=== PATIENT | female | born 1945 | race Two or more races ===

== ENCOUNTER → 2017-04-13 | Outpatient (CLI) | payer OTHER ==
--- NOTE | 2017-04-13 09:10 | RAD ---
Indication: Abdominal pain. The pancreas was poorly visualized. Aorta and IVC are poorly visualized. Liver is normal in size. No liver mass is detected. The gallbladder contains multiple stones. No wall thickening or pericholecystic fluid is seen. No biliary ductal dilatation is identified. The spleen is normal in size. The right and left kidneys are unremarkable. There is no ascites. Impression: Cholelithiasis without evidence of acute cholecystitis.
== END | disposition home or self-care (01) ==
LOC: US 07:50
PROVIDERS: ATTEND Family Medicine
DX: K80.80 Other cholelithiasis without obstruction (principal)
CPT/HCPCS: 76700

== ENCOUNTER 2017-05-04 08:10 | Day surgery (SDC) | payer OTHER ==
[~2017-05-04 08:10] MED LIST: HYDROmorphone 2 MG/ML VIAL IV; IOHEXOL 300 MG/ML 100ML VIAL.; LIDOCAINE 1% PF 2 ML VIAL. ID; MORPHINE SULFATE 2 MG/ML DISP.SYRIN. IV; ONDANSETRON PF 4 MG/2 ML VIAL. IV; PROCHLORPERAZINE 10 MG/2 ML VIAL. IV; SURGICEL HEMOSTAT 4X8 EACH.; fentaNYL PF VIAL 100 MCG/2 ML VIAL IV
[2017-05-04] MEDS: IV RINGERS,LACTATED 1000ML 1,000 ML IV (09:04)
[2017-05-04] MEDS ORDERED: ROCURONIUM 50 MG/5 ML VIAL. (09:08)
[2017-05-04] MEDS ORDERED: fentaNYL PF VIAL 100 MCG/2 ML VIAL (09:35)
[2017-05-04] MEDS ORDERED: PROPOFOL 20 ML IV (09:36)
[2017-05-04] MEDS ORDERED: ONDANSETRON PF 4 MG/2 ML VIAL. (09:36)
[2017-05-04] MEDS ORDERED: DEXAMETHASONE SOD PHOS 20 MG/5 ML VIAL. (09:36)
[2017-05-04] MEDS ORDERED: LIDOCAINE 2% PF Vial for OR 5 ML VIAL. (09:36)
[2017-05-04] MEDS ORDERED: MIDAZOLAM HCL/PF 2 MG/2 ML VIAL. (09:38)
[2017-05-04] MEDS: BUPIVACAINE MPF 0.5% 30 ML VIAL. (10:09)
[2017-05-04] MEDS ORDERED: ePHEDrine PF IN SALINE 50 MG/5 ML DISP.SYRIN IV (10:09)
[2017-05-04] MEDS ORDERED: NEOSTIGMINE METHYLSULFATE 5 MG/5 ML SYRINGE. (10:12)
[2017-05-04] MEDS ORDERED: GLYCOPYRROLATE 1 MG/5 ML VIAL. (10:13)
[2017-05-04] MEDS ORDERED: PHENYLEPHRINE in 0.9% NACL PF 1 MG/10 ML SYRINGE. IV (10:34)
[2017-05-04] MEDS: HYDROcodone/APAP 5/325MG 1 TAB TABLET PO (11:45)
[2017-05-04] MEDS: fentaNYL PF VIAL 100 MCG/2 ML VIAL IV (12:29)
== END 2017-05-04 13:08 | disposition home or self-care (01) ==
LOC: SURG 08:10
DX: K80.12 Calculus of gallbladder with acute and chronic cholecystitis without obstruction (principal)
CPT/HCPCS: 47562; J1100; J2250; J2370; J2405; J2704; J2710; J3010; J3490; J7030; Q9967

== ENCOUNTER → 2017-09-26 | Outpatient (CLI) | payer OTHER | END | disposition home or self-care (01) | LOC: MAMMO 09:52 | DX: Z12.31 Encounter for screening mammogram for malignant neoplasm of breast (principal) | CPT/HCPCS: 77067 ==

== ENCOUNTER → 2018-09-27 | Outpatient (CLI) | payer OTHER, MEDICAID ==
[2017-05-04 11:51] VITALS: BP 130/71
[~2018-09-27] MED LIST changes: +BESI5DRO OD; +CLON1TAB11 PO; +HYDR-3164 PO; -HYDROmorphone 2 MG/ML VIAL IV; +IBUP200T58 PO; -IOHEXOL 300 MG/ML 100ML VIAL.; -LIDOCAINE 1% PF 2 ML VIAL. ID; -MORPHINE SULFATE 2 MG/ML DISP.SYRIN. IV; +NEPA1.7D OP; -ONDANSETRON PF 4 MG/2 ML VIAL. IV; +POLY17PO29 PO; -PROCHLORPERAZINE 10 MG/2 ML VIAL. IV; -SURGICEL HEMOSTAT 4X8 EACH.; -fentaNYL PF VIAL 100 MCG/2 ML VIAL IV
--- NOTE | 2018-09-27 12:01 | RAD ---
DATE: 09/27/2018. EXAM: DIGITAL SCREEN BILAT W/CAD. HISTORY: Routine mammographic screening. COMPARISON: 09/26/2017. This study was interpreted with the benefit of Computerized Aided Detection (CAD). FINDINGS: Breast Density: SCATTERED The breast parenchyma shows scattered fibroglandular densities. Breast parenchyma level B.. There are no suspicious masses, microcalcifications or architectural distortion. Diffuse secretory, coarse and vascular calcifications are benign. BI-RADS CATEGORY: 2 BENIGN FINDING(S). RECOMMENDED FOLLOW-UP: 12M 12 MONTH FOLLOW-UP. PQRS compliance statement: Patient information was entered into a reminder system with a target due date 09/28/2019 for the next mammogram. Mammography is a sensitive method for finding small breast cancers, but it does not detect them all and is not a substitute for careful clinical examination. A negative mammogram does not negate a clinically suspicious finding and should not result in delay in biopsying a clinically suspicious abnormality. "Our facility is accredited by the [employer] Mammography Program."
== END | disposition home or self-care (01) ==
LOC: MAMMO 08:06
PROVIDERS: ATTEND Family Medicine
DX: Z12.31 Encounter for screening mammogram for malignant neoplasm of breast (principal); N64.89 Other specified disorders of breast
CPT/HCPCS: 77067

== ENCOUNTER → 2019-03-18 | Outpatient (CLI) | payer OTHER ==
[2017-05-04 11:51] VITALS: BP 130/71
[~2019-03-18] MED LIST changes: -CLON1TAB11 PO; +CLONAZEPAM1 MG PO; +REGADENOSON 0.4 MG/5 ML DISP.SYRIN. IV ONE
--- NOTE | 2019-03-18 11:14 | CARD ---
MR#: [id number] Date of Study: 03/18/2019 Ordering Physician: AIYANA BOYER, Referring Physician: AIYANA BOYER Tech: Carmen Reese RDCS APPROVED REPORT EXAM: Two-dimensional and M-mode echocardiogram with Doppler and color Doppler. Other Information Quality : Good INDICATION Exertional Dyspnea 2D DIMENSIONS RVDd1.8 (2.9-3.5cm)Left Atrium(2D)1.6 (1.6-4.0cm) IVSd0.8 (0.7-1.1cm)Aortic Root(2D)2.9 (2.0-3.7cm) LVDd2.9 (3.9-5.9cm)LVOT Diameter1.8 (1.8-2.4cm) PWd0.6 (0.7-1.1cm)LVDs2.0 (2.5-4.0cm) FS (%) 30.5 %SV19.3 ml LVEF(%)60.0 (>50%) Aortic Valve AoV Peak Ramses.125.9cm/sAoV VTI18.4cm AO Peak GR.6.3mmHgLVOT VTI 19.37cm AO Mean GR.3mmHgAVA (VTI)2.80cm2 AI P 1/2 Dorl985fo Mitral Valve MV E Tqbwcdsa61.5cm/sMV DECEL REAX094jo MV A Wqfkgapk01.6cm/sE/A Ratio0.9 TDI Lateral E' P. V3.99cm/sMedial E' P. V4.38cm/s E/Lateral E'18.2E/Medial E'16.6 Pulmonary Vein S1 Isizvlqa55.5cm/sS2 Wwbyafas09.49cm/s D2 Fzoaiayy22.5cm/s LEFT VENTRICLE The left ventricle is normal size. There is normal left ventricular wall thickness. The left ventricu lar systolic function is normal. The Ejection Fraction is 60-65%. There is normal LV segmental wall m otion. Transmitral Doppler flow pattern is Grade I-abnormal relaxation pattern. RIGHT VENTRICLE The right ventricle is normal size. The right ventricular systolic function is normal. ATRIA The left atrium size is normal. The right atrium size is normal. The interatrial septum is intact wit h no evidence for an atrial septal defect or patent foramen ovale as noted on 2-D or Doppler imaging. AORTIC VALVE The aortic valve is calcified but opens well. Doppler and Color Flow revealed mild aortic regurgitati on. There is no significant aortic valvular stenosis. MITRAL VALVE The mitral valve is calcified but opens well. There is no evidence of mitral valve prolapse. There is no mitral valve stenosis. Doppler and Color Flow revealed no mitral valve regurgitation noted. TRICUSPID VALVE The tricuspid valve is normal in structure and function. Doppler and Color Flow revealed trace tricus pid valve regurgitation. There is no tricuspid valve stenosis. PULMONIC VALVE The pulmonary valve is normal in structure and function. Doppler and Color Flow revealed trace pulmon ic valvular regurgitation. There is no pulmonic valvular stenosis. GREAT VESSELS The aortic root is normal in size. The ascending aorta is normal in size. The IVC is normal in size a nd collapses >50% with inspiration. PERICARDIAL EFFUSION There is no evidence of significant pericardial effusion. Critical Notification Critical Value: No <Conclusion> The left ventricular systolic function is normal. The Ejection Fraction is 60-65%. There is normal LV segmental wall motion. Transmitral Doppler flow pattern is Grade I-abnormal relaxation pattern. Mild aortic regurgitation. Trace tricuspid valve regurgitation. There is no evidence of significant pericardial effusion. Signed by : Aiyana Boyer, Electronically Approved : 03/18/2019 11:14:11
--- NOTE | 2019-03-18 14:23 | RAD ---
MR#: [id number] Date of Study: 03/18/2019 Ordering Physician: AIYANA BOYER Referring Physician: NEREIDA ZIEGLER Tech: RT Lindsey Johnson) (N) APPROVED REPORT Test Type: Pharmacological Stress Nurse/Tech: Gwendolyn Menendez R.N. Test Indications: SOB Cardiac History: No known cardiac Medications: Zocor Medical History: See Electronic Medical Record Resting ECG: SR w/ inverted T waves in leads AVR,V1,v3 Resting Heart Rate: 83 bpm Resting Blood Pressure: 144/79mmHg Pretest Chest Pain: No chest pain Nurse/Tech Notes S1S2, lungs CTA Consent: The procedure was explained to the patient in lay terms. Informed consent was witnessed. Yovanny eout was entered into [employer]. History and Stress Test performed by RT Lindsey Johnson) (N) Pharm. Details Pharmacologic stress testing was performed using 0.4mg per 5ml of regadenoson given intravenously ove r 7-10 seconds. Stress Symptoms SOA, h/a POST EXERCISE Reason for Termination: Infusion complete Max HR: 109 bpm Max Blood Pressure: 137/68mmHg Blood Pressure response to exercise: Normal blood pressure response during stress. Heart Rate response to exercise: wnl Chest Pain: No. Arrhythmia: No. ST Change: No. INTERPRETATION Stress EKG Conclusion: Baseline EKG showed sinus rhythm. No ischemic changes at peak stress. No arr hythmias. Imaging Protocol IMAGE PROTOCOL: Rest Tc-99m/stress Tc-99m 1 day Rest: Stress: Viability: Radiopharm.Tc99m TdycbvijdWf73g Sestamibi Dose10.4mCi 33mCi Duration 13min. 13min. Img Date 03/18/2019 03/18/2019 Inj-Img [id number]. 60min. Rest Admin Site:IV - Right AntecubitalAdministrator:RT Lindsey Johnson)(N) Stress Admin Site: IV - Right AntecubitalAdministrator: VIVIAN Greer STRESS DATA End Diast. Vol.15.0mlAv. Heart Neug356.0bpm LVEDV index BSA11.0mlCardiac Output0.0L/min CO Index BSA0.0L/minMyocardial Mass42.0g Eject. Bctqbavh204.0% Stress Scores Regional WT0.00Summed WT3.00 Regional WM0.00Summed WM3.00 Study quality was good. Left Ventricular size was Normal at Rest and Stress. Lung uptake was . Left Ventricular ejection fraction is >80%. The rest and stress images show normal perfusion, normal contraction and thickening. LV Perf. Quant 17 Seg. SSS0.00 17 Seg. SRS0.00 17 Seg. SDS0.00 Stress Defect Extent (% LAD)0.00Rest Defect Extent (% LAD)0.00Rev. Defect Extent (% LAD)0.00 Stress Defect Extent (% LCX) 0.00Rest Defect Extent (% LCX)0.00Rev. Defect Extent (% LCX)0.00 Stress Defect Extent (% RCA)0.00Rest Defect Extent (% RCA)0.00Rev. Defect Extent (% RCA)0.00 Stress Defect Extent (% NICOLETTE)0.00Rest Defect Extent (% NICOLETTE)0.00Rev. Defect Extent (% NICOLETTE)0.00 Conclusion 1. Regadenoson cardioisotope stress test did not show any evidence of ischemia or infarct. 2. Normal left ventricular systolic function with ejection fraction calculated at >80%. 3. Low risk for cardiac events. Signed by : Aiyana Boyer, Electronically Approved : 03/18/2019 14:22:38
== END | disposition home or self-care (01) ==
LOC: ECHO 08:52
PROVIDERS: ATTEND Internal Medicine Cardiovascular Disease
DX: I08.0 Rheumatic disorders of both mitral and aortic valves (principal)
CPT/HCPCS: 78452; 93017; 93306; A9500; J2785

== ENCOUNTER 2020-03-01 12:03 | Inpatient (IN) | payer OTHER ==
[~2020-03-01] VITALS: Ht 142.2 cm; Wt 54.0 kg
[~2020-03-01 12:03] MED LIST changes: -REGADENOSON 0.4 MG/5 ML DISP.SYRIN. IV ONE
[2020-03-01] MEDS ORDERED: FAMOTIDINE 20 MG/2 ML VIAL IVP ONE (12:30)
[2020-03-01] MEDS ORDERED: IV NORMAL SALINE 1000ML BAG 1,000 ML IV ONE ×3 (12:30→15:45)
[2020-03-01 12:44] LABS: FECAL OB PT POSITIVE (NEG)
[2020-03-01 12:51] LABS: BASO % 0 % (0-3); EOS % 0 % (0-3); HEMATOCRIT 33.6 % (36.0-47.0); HEMOGLOBIN 11.6 g/dL (12.0-15.5); LYMPH # 1.1 x10^3/uL (1.0-4.8); LYMPH % 11 % (24-48); MEAN CORPUSCULAR HEMOGLOBIN 33 pg (25-35); MEAN CORPUSCULAR HGB CONC 34 g/dL (31-37); MEAN CORPUSCULAR VOLUME 95 fL (79-100); MONO # 0.6 x10^3/uL (0.0-1.1); MONO % 6 % (0-9); NEUT # 8.2 x10^3/uL (1.8-7.7); NEUT % 82 % (31-73); PLATELET COUNT 235 x10^3/uL (140-400); RED BLOOD COUNT 3.55 x10^6/uL (3.50-5.40); RED CELL DISTRIBUTION WIDTH 11.8 % (11.5-14.5)
[2020-03-01 12:58] LABS: CREATININE 0.5 mg/dL (0.6-1.0); GFR 120.3; POTASSIUM 3.8 mmol/L (3.5-5.1)
[2020-03-01] MEDS ORDERED: IOHEXOL 300 MG/ML 100ML VIAL. IV ONE (13:00)
[2020-03-01 13:01] LABS: PROTHROMBIN TIME PATIENT 12.9 SEC (11.7-14.0)
[2020-03-01 13:04] LABS: ALBUMIN 3.5 g/dL (3.4-5.0); ALBUMIN/GLOBULIN RATIO 1.2 (1.0-1.7); MAGNESIUM 1.5 mg/dL (1.8-2.4); TOTAL BILIRUBIN 0.4 mg/dL (0.2-1.0); TOTAL PROTEIN 6.5 g/dL (6.4-8.2)
[2020-03-01] MEDS ORDERED: CONTRAST GIVEN. MC PRN (13:15)
--- NOTE | 2020-03-01 13:41 | RAD ---
PQRS Compliance Statement: One or more of the following individualized dose reduction techniques were utilized for this examination: 1. Automated exposure control 2. Adjustment of the mA and/or kV according to patient size 3. Use of iterative reconstruction technique CT ABD PELV W/ IV CONTRST ONLY Clinical Indication: Reason: rectal bleeding Comparison: None. Technique: Helical CT imaging of the abdomen and pelvis is performed after 75 cc of Omnipaque 300 IV contrast. Oral contrast not administered. Findings: Incompletely imaged there is a large hiatal hernia containing most of the stomach, transverse colon, and the pancreas. Cardiac size is normal. Coronary artery disease is seen. There is compressive atelectasis in the lung bases adjacent to the hiatal hernia. Common bile duct is mildly dilated but tapers distally and is probably normal for this patient. Cholecystectomy. The liver, spleen, and adrenal glands are normal. Mild atherosclerotic calcification of the abdominal aorta, no aneurysm. Kidneys enhance symmetrically, no hydronephrosis. There is no dilated small bowel. Much of the small bowel is air-filled. Appendix is not seen, no secondary signs of appendicitis. There is descending colon diverticulosis. No colon wall thickening is appreciated. No abdominal adenopathy or free fluid. Atrophic uterus. Vaginal pessary is noted. The urinary bladder is normal. There are moderate bilateral fat-containing inguinal hernias. Multilevel disc space narrowing and vacuum disc phenomenon of the thoracolumbar spine. No acute fracture is seen. IMPRESSION: 1. No acute abdominal or pelvic abnormality. 2. Descending colon diverticulosis. 3. Large hiatal hernia contains stomach, transverse colon, and pancreas. Electronically signed by: Lucas Soriano MD (03/01/2020 1:38 PM) [id number]
[2020-03-01 13:49] LABS: BILIRUBIN,URINE NEGATIVE (NEG); CLARITY,URINE CLEAR; COLOR,URINE YELLOW; NITRITE,URINE NEGATIVE (NEG); PROTEIN,URINE NEGATIVE (NEG-TRACE); UROBILINOGEN,URINE 0.2 mg/dL (0.2 mg/dL)
[2020-03-01 13:55] LABS: BACTERIA,URINE MANY /HPF (0-FEW); BARBITURATES NEG (NEG); BENZODIAZEPINES NEG (NEG); CANNABINOIDS NEG (NEG); COCAINE NEG (NEG); METHADONE NEG (NEG); OPIATES NEG (NEG); PHENCYCLIDINE NEG (NEG); WBC,URINE 20-40 /HPF (0-4)
[2020-03-01 13:58] LABS: AMPHETAMINE/METHAMPHETAMINE NEG (NEG)
--- NOTE | 2020-03-01 14:30 | PDOC1 ---
History and Physical Date of Admission Date of Admission DATE: 03/01/20 TIME: 14:29 Identification/Chief Complaint Chief Complaint 74 year old Tajik-speaking female patient with a history of acid reflux, anxiety, presenting to the ED today complaining of rectal bleeding that began this morning at 2 AM. reports taking Aleve due to generalized abdominal pain that she was experiencing at that time. Denies any nausea or vomiting today but states yesterday when she was having the rectal bleeding she felt nauseated . Denies any fever. hgb 11.6 in ER, HOWEVER Na is low at 121 Interpretation was provided by granddaughter Past Medical History Cardiovascular: HTN, Hyperlipidemia Musculoskeletal: Osteoarthritis Family History Family History: Hypertension Social History Smoke: No ALCOHOL: none Drugs: None Current Medications Current Medications Current Medications Famotidine (Pepcid Vial) 20 mg 1X ONCE IVP Last administered on 03/01/20at 12:40; Start 03/01/20 at 12:30; Stop 03/01/20 at 12:31; Status DC Sodium Chloride 1,000 ml @ 1,000 mls/hr 1X ONCE IV Last administered on 03/01/20at 12:41; Start 03/01/20 at 12:30; Stop 03/01/20 at 13:29; Status DC Iohexol (Omnipaque 300 Mg/ml) 75 ml 1X ONCE IV ; Start 03/01/20 at 13:00; Stop 03/01/20 at 13:04; Status DC Info (CONTRAST GIVEN -- Rx MONITORING) 1 each PRN DAILY PRN MC SEE COMMENTS; Start 03/01/20 at 13:15; Stop 03/03/20 at 13:14 Sodium Chloride 1,000 ml @ 1,000 mls/hr 1X ONCE IV Last administered on 03/01/20at 14:28; Start 03/01/20 at 14:00; Stop 03/01/20 at 14:59 Lorazepam (Ativan Inj) 0.5 mg 1X ONCE IVP Last administered on 03/01/20at 14:27; Start 03/01/20 at 14:30; Stop 03/01/20 at 14:31 Active Scripts Active Reported [place] 5-325 Tablet (Acetaminophen/Hydrocodone Bitart) 1 Each Tablet 1-2 Tab PO Q4HRS PRN Besivance (Besifloxacin Hcl) 5 Ml Drops.susp 1 Drop OD TID Ilevro (Nepafenac) 1.7 Ml Drops.susp 1.7 Ml OP RIGHT EYE Advil (Ibuprofen) 200 Mg Tablet 200 Mg PO PRN PRN Miralax (Polyethylene Glycol 3350) 17 Gm Powd.pack 1 Pkt PO DAILY Clonazepam 1 Mg Tablet 1 Mg PO DAILY Allergies Allergies: Coded Allergies: No Known Drug Allergies (Unverified , 05/04/17) ROS Review of System Review of Systems: Review of Systems: Constitutional: Denies fever or chills. [] Eyes: Denies change in visual acuity. [] HENT: Denies nasal congestion or sore throat. [] Respiratory: Denies cough or shortness of breath. [] Cardiovascular: Denies chest pain or edema. [] GI: Reports rectal bleeding, nausea, abdominal pain, denies vomiting : Denies dysuria. [] Musculoskeletal: Denies back pain or joint pain. [] Integument: Denies rash. [] Neurologic: Denies headache, focal weakness or sensory changes. [] Psychiatric: reports anxiety. [] 14 PT ROS OTHERWISE NEG HEENT: No: Heacaches, Visual Changes, Hearing change, Nasal congestion, Nasal discharge, Oral lesions, Sinus pain, Sore Throat, Epistaxis, Sneezing, Snoring, Tinnitus, Vertigo, Vocal changes, Other Hematological and Lymphatic: No: Bleeding Problems, Blood Clots, Blood Transfusions, Brusing, Night Sweats, Pallor, Swollen Lymph Nodes, Other Respiratory: No: Cough, Hemoptysis, Orthopnea, Pleuritic Pain, Shortness of breath, SOB with excertion, Sputum Changes, Stridor, Tachypnea, Wheezing, Other Skin: No Dry Skin, No Eczema, No Hair Changes, No Lumps, No Mole Changes, No Mottling, No Nail Changes, No Pruritus, No Rash, No Skin Lesion Changes, No Other, No Acne Physical Exam Physical Exam Constitutional: Well developed, well nourished, no acute distress, non-toxic appearance. [] HENT: Normocephalic, atraumatic, bilateral external ears normal, oropharynx moist, no oral exudates, nose normal. [] Eyes: PERRLA, EOMI, conjunctiva normal, no discharge. [] Neck: Normal range of motion, no tenderness, supple, no stridor. [] Cardiovascular:Heart rate regular rhythm, no murmur [] Lungs & Thorax: Bilateral breath sounds clear to auscultation [] Abdomen: Rounded abdomen, bowel sounds normal, soft, generalized tenderness, no masses, no pulsatile masses. [] Rectal external rectal area with Small amount of nonthrombosed hemorrhoids BY er Internal rectum with no hemorrhoids or masses, positive Hemoccult Skin: Warm, dry, no erythema, no rash. [] Back: No tenderness, no CVA tenderness. [] Extremities: No tenderness, no cyanosis, no clubbing, ROM intact, no edema. [] Neurologic: Alert and oriented X 3, normal motor function, normal sensory function, no focal deficits noted. [] Psychologic: Anxious appearing General: Alert, Oriented X3, Cooperative, No acute distress HEENT: Atraumatic, PERRLA, EOMI, Mucous membr. moist/pink Lungs: Clear to auscultation Heart: RRR, no thrills Breasts: Not examined Abdomen: Normal bowel sounds, Soft Rectal Exam: not examined, deferred, hemorrhoids PELVIC: Examination not indicated Extremities: No cyanosis Skin: No breakdown Neuro: Normal speech, Cranial nerves 3-12 NL Psych/Mental Status: Mental status NL, Mood NL Vitals Vitals Vital Signs Date Time Temp Pulse Resp B/P (MAP) Pulse Ox O2 Delivery O2 Flow Rate FiO2 03/01/20 12:46 98.2 87 16 153/74 (100) 96 Room Air 98.2 Labs Labs Laboratory Tests Test 03/01/20 12:11 03/01/20 12:15 03/01/20 12:35 Urine Collection Type Unknown Urine Color Yellow Urine Clarity Clear Urine pH 6.0 (<5.0-8.0) Urine Specific [place] 1.020 (1.000-1.030) Urine Protein Negative mg/dL (NEG-TRACE) Urine Glucose (UA) 250 mg/dL (NEG) Urine Ketones (Stick) Trace mg/dL (NEG) Urine Blood Trace (NEG) Urine Nitrite Negative (NEG) Urine Bilirubin Negative (NEG) Urine Urobilinogen Dipstick 0.2 mg/dL (0.2 mg/dL) Urine Leukocyte Esterase Large (NEG) Urine RBC 1-2 /HPF (0-2) Urine WBC 20-40 /HPF (0-4) Urine Squamous Epithelial Cells Mod /LPF Urine Bacteria Many /HPF (0-FEW) Urine Opiates Screen Neg (NEG) Urine Methadone Screen Neg (NEG) Urine Barbiturates Neg (NEG) Urine Phencyclidine Screen Neg (NEG) Urine Amphetamine/Methamphetamine Neg (NEG) Urine Benzodiazepines Screen Neg (NEG) Urine Cocaine Screen Neg (NEG) Urine Cannabinoids Screen Neg (NEG) Urine Ethyl Alcohol Neg (NEG) Stool Occult Blood Positive (NEG) White Blood Count 10.0 x10^3/uL (4.0-11.0) Red Blood Count 3.55 x10^6/uL (3.50-5.40) Hemoglobin 11.6 g/dL (12.0-15.5) Hematocrit 33.6 % (36.0-47.0) Mean Corpuscular Volume 95 fL (79-100) Mean Corpuscular Hemoglobin 33 pg (25-35) Mean Corpuscular Hemoglobin Concent 34 g/dL (31-37) Red Cell Distribution Width 11.8 % (11.5-14.5) Platelet Count 235 x10^3/uL (140-400) Neutrophils (%) (Auto) 82 % (31-73) Lymphocytes (%) (Auto) 11 % (24-48) Monocytes (%) (Auto) 6 % (0-9) Eosinophils (%) (Auto) 0 % (0-3) Basophils (%) (Auto) 0 % (0-3) Neutrophils # (Auto) 8.2 x10^3/uL (1.8-7.7) Lymphocytes # (Auto) 1.1 x10^3/uL (1.0-4.8) Monocytes # (Auto) 0.6 x10^3/uL (0.0-1.1) Eosinophils # (Auto) 0.0 x10^3/uL (0.0-0.7) Basophils # (Auto) 0.0 x10^3/uL (0.0-0.2) Prothrombin Time 12.9 SEC (11.7-14.0) Prothromb Time International Ratio 1.0 (0.8-1.1) Activated Partial Thromboplast Time 27 SEC (24-38) Sodium Level 121 mmol/L (136-145) Potassium Level 3.8 mmol/L (3.5-5.1) Chloride Level 88 mmol/L (98-107) Carbon Dioxide Level 26 mmol/L (21-32) Anion Gap 7 (6-14) Blood Urea Nitrogen 25 mg/dL (7-20) Creatinine 0.5 mg/dL (0.6-1.0) Estimated GFR (Cockcroft-Gault) 120.3 BUN/Creatinine Ratio 50 (6-20) Glucose Level 144 mg/dL (70-99) Calcium Level 8.0 mg/dL (8.5-10.1) Magnesium Level 1.5 mg/dL (1.8-2.4) Total Bilirubin 0.4 mg/dL (0.2-1.0) Aspartate Amino Transf (AST/SGOT) 16 U/L (15-37) Alanine Aminotransferase (ALT/SGPT) 17 U/L (14-59) Alkaline Phosphatase 37 U/L (46-116) Total Protein 6.5 g/dL (6.4-8.2) Albumin 3.5 g/dL (3.4-5.0) Albumin/Globulin Ratio 1.2 (1.0-1.7) Lipase 85 U/L (73-393) Ethyl Alcohol Level < 10 mg/dL (0-10) Laboratory Tests Test 03/01/20 12:11 03/01/20 12:15 03/01/20 12:35 Urine Collection Type Unknown Urine Color Yellow Urine Clarity Clear Urine pH 6.0 (<5.0-8.0) Urine Specific [place] 1.020 (1.000-1.030) Urine Protein Negative mg/dL (NEG-TRACE) Urine Glucose (UA) 250 mg/dL (NEG) Urine Ketones (Stick) Trace mg/dL (NEG) Urine Blood Trace (NEG) Urine Nitrite Negative (NEG) Urine Bilirubin Negative (NEG) Urine Urobilinogen Dipstick 0.2 mg/dL (0.2 mg/dL) Urine Leukocyte Esterase Large (NEG) Urine RBC 1-2 /HPF (0-2) Urine WBC 20-40 /HPF (0-4) Urine Squamous Epithelial Cells Mod /LPF Urine Bacteria Many /HPF (0-FEW) Urine Opiates Screen Neg (NEG) Urine Methadone Screen Neg (NEG) Urine Barbiturates Neg (NEG) Urine Phencyclidine Screen Neg (NEG) Urine Amphetamine/Methamphetamine Neg (NEG) Urine Benzodiazepines Screen Neg (NEG) Urine Cocaine Screen Neg (NEG) Urine Cannabinoids Screen Neg (NEG) Urine Ethyl Alcohol Neg (NEG) Stool Occult Blood Positive (NEG) White Blood Count 10.0 x10^3/uL (4.0-11.0) Red Blood Count 3.55 x10^6/uL (3.50-5.40) Hemoglobin 11.6 g/dL (12.0-15.5) Hematocrit 33.6 % (36.0-47.0) Mean Corpuscular Volume 95 fL (79-100) Mean Corpuscular Hemoglobin 33 pg (25-35) Mean Corpuscular Hemoglobin Concent 34 g/dL (31-37) Red Cell Distribution Width 11.8 % (11.5-14.5) Platelet Count 235 x10^3/uL (140-400) Neutrophils (%) (Auto) 82 % (31-73) Lymphocytes (%) (Auto) 11 % (24-48) Monocytes (%) (Auto) 6 % (0-9) Eosinophils (%) (Auto) 0 % (0-3) Basophils (%) (Auto) 0 % (0-3) Neutrophils # (Auto) 8.2 x10^3/uL (1.8-7.7) Lymphocytes # (Auto) 1.1 x10^3/uL (1.0-4.8) Monocytes # (Auto) 0.6 x10^3/uL (0.0-1.1) Eosinophils # (Auto) 0.0 x10^3/uL (0.0-0.7) Basophils # (Auto) 0.0 x10^3/uL (0.0-0.2) Prothrombin Time 12.9 SEC (11.7-14.0) Prothromb Time International Ratio 1.0 (0.8-1.1) Activated Partial Thromboplast Time 27 SEC (24-38) Sodium Level 121 mmol/L (136-145) Potassium Level 3.8 mmol/L (3.5-5.1) Chloride Level 88 mmol/L (98-107) Carbon Dioxide Level 26 mmol/L (21-32) Anion Gap 7 (6-14) Blood Urea Nitrogen 25 mg/dL (7-20) Creatinine 0.5 mg/dL (0.6-1.0) Estimated GFR (Cockcroft-Gault) 120.3 BUN/Creatinine Ratio 50 (6-20) Glucose Level 144 mg/dL (70-99) Calcium Level 8.0 mg/dL (8.5-10.1) Magnesium Level 1.5 mg/dL (1.8-2.4) Total Bilirubin 0.4 mg/dL (0.2-1.0) Aspartate Amino Transf (AST/SGOT) 16 U/L (15-37) Alanine Aminotransferase (ALT/SGPT) 17 U/L (14-59) Alkaline Phosphatase 37 U/L (46-116) Total Protein 6.5 g/dL (6.4-8.2) Albumin 3.5 g/dL (3.4-5.0) Albumin/Globulin Ratio 1.2 (1.0-1.7) Lipase 85 U/L (73-393) Ethyl Alcohol Level < 10 mg/dL (0-10) Images Images DPOA REVIEW 19 MIN to patient portal What Is a Power of Activity Manager? A power of regulatory attorney (POA) is a legal document giving one person (the agent or [id number]) the power to act for another person (the principal). The agent can have broad legal authority or limited authority to make legal decisions about the principal's property, finances or medical care. The power of regulatory attorney is frequently used in the event of a principal's illness or disability, or when the principal can't be present to sign necessary legal documents for financial transactions. A power of regulatory attorney can end for a number of reasons, such as when the principal dies, the principal revokes it, a court invalidates it, the principal divorces their spouse, who happens to be the agent, or the agent can no longer carry out the outlined responsibilities. Conventional POAs lapse when the creator becomes incapacitated, but a durable POA remains in force to enable the agent to manage the creators affairs, and a springing POA comes into effect only if and when the creator of the POA becomes incapacitated. A medical or healthcare POA enables an agent to make medical decisions on behalf of an incapacitated person. Barrett Takeaways A power of regulatory attorney (POA) is a legal document giving one person, the agent or [id number] the power to act for another person, the principal. The agent can have broad legal authority or limited authority to make decisions about the principal's property, finances or medical care. The power of regulatory attorney is often used when a principal becomes ill or disabled, or when they can't be present to sign necessary legal documents for financial transactions. Understanding Power of Activity Manager A power of regulatory attorney should be considered when planning for long-term care. There are different types of POAs that fall under either a general power of regulatory attorney or limited power of regulatory attorney. A general power of regulatory attorney acts on behalf of the principal in any and all matters, as allowed by the state. The agent under a general POA agreement may be authorized to take care of issues such as handling bank accounts, signing checks, selling property and assets like stocks, f A limited power of regulatory attorney gives the agent the power to act on behalf of the principal in specific matters or events. For example, the limited POA may explicitly state that the agent is only allowed to manage the principal's care home accounts. A limited POA may also be limited to a specific period of time (e.g., if the principal will be out of the country for, say, two years). Most buckner of regulatory attorney documents allow an agent to represent the principal in all property and financial matters as long as the principals mental state of mind is good. If a situation occurs where the principal becomes incapable of making decisions for him or herself, the POA agreement would automatically end. However, someone who wants the POA to remain in effect after the persons health deteriorates would need to sign a durable power of regulatory attorney (DPOA). What is an advance directive? An advance directive is a legal document that says how you want to be cared for if you are unable to make decisions. You can include what medical treatments you would want and who you would trust to make decisions for you. An advance directive can also include other legal documents. A living will is a list of treatment preferences. It can be used to indicate whether you would want cardiopulmonary resuscitation (CPR), tube feedings, a breathing machine, or certain medicines, like antibiotics. The durable power of regulatory attorney for health care document identifies the person you would want to make medical decisions for you. This person is also called a proxy. Your proxy should be familiar with your values and wishes. How do I get started? You can get advance directive documents for your state from your doctor's office or from http://www.caringinfo.org. Review the forms, and ask your doctor if you have any questions. Pick a person to be your proxy, and talk it over with that person. PQRS Compliance Statement: One or more of the following individualized dose reduction techniques were utilized for this examination: 1. Automated exposure control 2. Adjustment of the mA and/or kV according to patient size 3. Use of iterative reconstruction technique CT ABD PELV W/ IV CONTRST ONLY Clinical Indication: Reason: rectal bleeding Comparison: None. Technique: Helical CT imaging of the abdomen and pelvis is performed after 75 cc of Omnipaque 300 IV contrast. Oral contrast not administered. Findings: Incompletely imaged there is a large hiatal hernia containing most of the stomach, transverse colon, and the pancreas. Cardiac size is normal. Coronary artery disease is seen. There is compressive atelectasis in the lung bases adjacent to the hiatal hernia. Common bile duct is mildly dilated but tapers distally and is probably normal for this patient. Cholecystectomy. The liver, spleen, and adrenal glands are normal. Mild atherosclerotic calcification of the abdominal aorta, no aneurysm. Kidneys enhance symmetrically, no hydronephrosis. There is no dilated small bowel. Much of the small bowel is air-filled. Appendix is not seen, no secondary signs of appendicitis. There is descending colon diverticulosis. No colon wall thickening is appreciated. No abdominal adenopathy or free fluid. Atrophic uterus. Vaginal pessary is noted. The urinary bladder is normal. There are moderate bilateral fat-containing inguinal hernias. Multilevel disc space narrowing and vacuum disc phenomenon of the thoracolumbar spine. No acute fracture is seen. IMPRESSION: 1. No acute abdominal or pelvic abnormality. 2. Descending colon diverticulosis. 3. Large hiatal hernia contains stomach, transverse colon, and pancreas. Electronically signed by: Lucas Soriano MD (03/01/2020 1:38 PM) [id number] DICTATED and SIGNED BY: LUCAS SORIANO MD VTE Prophylaxis Ordered VTE Prophylaxis Devices: Yes VTE Pharmacological Prophylaxi: Contraindicated Assessment/Plan Assessment/Plan IMPRESSION: 1. No acute abdominal or pelvic abnormality. by ct 2. Descending colon diverticulosis. 3. Large hiatal hernia contains stomach, transverse colon, and pancreas. 4, rectal bleed, ACUTE 5. moderate hyponatremia 6. uti plan admit, OBSERVATION npo iv fluids serial HGB Q 12 HRS SCD'S NO LOVENOX serum osmolality random urinary sodium frequent labs serum osmolality iv rocephin 1 gm q 24 hrs d/w er Justifications for Admission Other Justification AMA MYERS MD Mar 01, 2020 14:30
--- NOTE | 2020-03-01 15:13 | PHYS DOC ---
Past Medical History Past Medical History: Anxiety, Other Additional Past Medical Histor: ULCERS Past Surgical History: Cholecystectomy, Other Additional Past Surgical Histo: EYE SX Smoking Status: Never Smoker Alcohol Use: None General Adult EDM: Chief Complaint: BLOODY STOOL HPI: HPI: Patient is a 74 year old [place]gu[place]-speaking female patient with a history of acid reflux, anxiety, presenting to the ED today complaining of rectal bleeding that began this morning at 2 AM. She reports taking Aleve due to generalized abdominal pain that she was experiencing at that time. Denies any nausea or vomiting today but states yesterday when she was having the rectal bleeding she felt nauseated but could not vomit. Denies any fever. Interpretation was provided by granddaughter Review of Systems: Review of Systems: Constitutional: Denies fever or chills. [] Eyes: Denies change in visual acuity. [] HENT: Denies nasal congestion or sore throat. [] Respiratory: Denies cough or shortness of breath. [] Cardiovascular: Denies chest pain or edema. [] GI: Reports rectal bleeding, nausea, abdominal pain, denies vomiting : Denies dysuria. [] Musculoskeletal: Denies back pain or joint pain. [] Integument: Denies rash. [] Neurologic: Denies headache, focal weakness or sensory changes. [] Psychiatric: reports anxiety. [] Heart Score: Risk Factors: Risk Factors: DM, Current or recent (<one month) smoker, HTN, HLP, family history of CAD, obesity. Risk Scores: Score 0 - 3: 2.5% MACE over next 6 weeks - Discharge Home Score 4 - 6: 20.3% MACE over next 6 weeks - Admit for Clinical Observation Score 7 - 10: 72.7% MACE over next 6 weeks - Early Invasive Strategies Current Medications: Current Medications Medications (Trade) Dose Ordered Sig/Alo Start Time Stop Time Status Last Admin Dose Admin Famotidine (Pepcid Vial) 20 mg 1X ONCE 03/01/20 12:30 03/01/20 12:31 DC 03/01/20 12:40 20 MG Info (CONTRAST GIVEN -- Rx MONITORING) 1 each PRN DAILY PRN 03/01/20 13:15 03/03/20 13:14 Iohexol (Omnipaque 300 Mg/ml) 75 ml 1X ONCE 03/01/20 13:00 03/01/20 13:04 DC 03/01/20 13:00 75 ML Lorazepam (Ativan Inj) 0.5 mg 1X ONCE 03/01/20 14:30 03/01/20 14:31 DC 03/01/20 14:27 0.5 MG Sodium Chloride 1,000 ml @ 1,000 mls/hr 1X ONCE 03/01/20 14:00 03/01/20 14:59 DC 03/01/20 14:28 1,000 MLS/HR Allergies: Allergies: Allergies Coded Allergies Type Severity Reaction Last Updated Verified No Known Drug Allergies 05/04/17 No Physical Exam: PE: Constitutional: Well developed, well nourished, no acute distress, non-toxic appearance. [] HENT: Normocephalic, atraumatic, bilateral external ears normal, oropharynx moist, no oral exudates, nose normal. [] Eyes: PERRLA, EOMI, conjunctiva normal, no discharge. [] Neck: Normal range of motion, no tenderness, supple, no stridor. [] Cardiovascular:Heart rate regular rhythm, no murmur [] Lungs & Thorax: Bilateral breath sounds clear to auscultation [] Abdomen: Rounded abdomen, bowel sounds normal, soft, generalized tenderness, no masses, no pulsatile masses. [] Rectal external rectal area with Small amount of nonthrombosed hemorrhoids Internal rectum with no hemorrhoids or masses, positive Hemoccult Skin: Warm, dry, no erythema, no rash. [] Back: No tenderness, no CVA tenderness. [] Extremities: No tenderness, no cyanosis, no clubbing, ROM intact, no edema. [] Neurologic: Alert and oriented X 3, normal motor function, normal sensory function, no focal deficits noted. [] Psychologic: Anxious appearing Current Patient Data: Labs: Laboratory Tests Test 03/01/20 12:11 03/01/20 12:15 03/01/20 12:35 Urine Collection Type Unknown Urine Color Yellow Urine Clarity Clear Urine pH 6.0 (<5.0-8.0) Urine Specific Allen 1.020 (1.000-1.030) Urine Protein Negative mg/dL (NEG-TRACE) Urine Glucose (UA) 250 mg/dL (NEG) Urine Ketones (Stick) Trace mg/dL (NEG) Urine Blood Trace (NEG) Urine Nitrite Negative (NEG) Urine Bilirubin Negative (NEG) Urine Urobilinogen Dipstick 0.2 mg/dL (0.2 mg/dL) Urine Leukocyte Esterase Large (NEG) Urine RBC 1-2 /HPF (0-2) Urine WBC 20-40 /HPF (0-4) Urine Squamous Epithelial Cells Mod /LPF Urine Bacteria Many /HPF (0-FEW) Urine Opiates Screen Neg (NEG) Urine Methadone Screen Neg (NEG) Urine Barbiturates Neg (NEG) Urine Phencyclidine Screen Neg (NEG) Urine Amphetamine/Methamphetamine Neg (NEG) Urine Benzodiazepines Screen Neg (NEG) Urine Cocaine Screen Neg (NEG) Urine Cannabinoids Screen Neg (NEG) Urine Ethyl Alcohol Neg (NEG) Stool Occult Blood Positive (NEG) White Blood Count 10.0 x10^3/uL (4.0-11.0) Red Blood Count 3.55 x10^6/uL (3.50-5.40) Hemoglobin 11.6 g/dL (12.0-15.5) L Hematocrit 33.6 % (36.0-47.0) L Mean Corpuscular Volume 95 fL (79-100) Mean Corpuscular Hemoglobin 33 pg (25-35) Mean Corpuscular Hemoglobin Concent 34 g/dL (31-37) Red Cell Distribution Width 11.8 % (11.5-14.5) Platelet Count 235 x10^3/uL (140-400) Neutrophils (%) (Auto) 82 % (31-73) H Lymphocytes (%) (Auto) 11 % (24-48) L Monocytes (%) (Auto) 6 % (0-9) Eosinophils (%) (Auto) 0 % (0-3) Basophils (%) (Auto) 0 % (0-3) Neutrophils # (Auto) 8.2 x10^3/uL (1.8-7.7) H Lymphocytes # (Auto) 1.1 x10^3/uL (1.0-4.8) Monocytes # (Auto) 0.6 x10^3/uL (0.0-1.1) Eosinophils # (Auto) 0.0 x10^3/uL (0.0-0.7) Basophils # (Auto) 0.0 x10^3/uL (0.0-0.2) Prothrombin Time 12.9 SEC (11.7-14.0) Prothrombin Time INR 1.0 (0.8-1.1) Activated Partial Thromboplast Time 27 SEC (24-38) Sodium Level 121 mmol/L (136-145) L Potassium Level 3.8 mmol/L (3.5-5.1) Chloride Level 88 mmol/L (98-107) L Carbon Dioxide Level 26 mmol/L (21-32) Anion Gap 7 (6-14) Blood Urea Nitrogen 25 mg/dL (7-20) H Creatinine 0.5 mg/dL (0.6-1.0) L Estimated GFR (Cockcroft-Gault) 120.3 BUN/Creatinine Ratio 50 (6-20) H Glucose Level 144 mg/dL (70-99) H Calcium Level 8.0 mg/dL (8.5-10.1) L Magnesium Level 1.5 mg/dL (1.8-2.4) L Total Bilirubin 0.4 mg/dL (0.2-1.0) Aspartate Amino Transferase (AST) 16 U/L (15-37) Alanine Aminotransferase (ALT) 17 U/L (14-59) Alkaline Phosphatase 37 U/L (46-116) L Total Protein 6.5 g/dL (6.4-8.2) Albumin 3.5 g/dL (3.4-5.0) Albumin/Globulin Ratio 1.2 (1.0-1.7) Lipase 85 U/L (73-393) Ethyl Alcohol Level < 10 mg/dL (0-10) Laboratory Tests 03/01/20 12:35 Laboratory Tests 03/01/20 12:35 Vital Signs: Vital Signs Date Time Temp Pulse Resp B/P (MAP) Pulse Ox O2 Delivery O2 Flow Rate FiO2 03/01/20 14:38 90 20 144/76 (98) 96 Room Air 03/01/20 12:46 98.2 98.2 EKG: EKG: [] Radiology/Procedures: Radiology/Procedures: []PROCEDURE: CT ABD PELV W/ IV CONTRST ONLY PQRS Compliance Statement: One or more of the following individualized dose reduction techniques were utilized for this examination: 1. Automated exposure control 2. Adjustment of the mA and/or kV according to patient size 3. Use of iterative reconstruction technique CT ABD PELV W/ IV CONTRST ONLY Clinical Indication: Reason: rectal bleeding Comparison: None. Technique: Helical CT imaging of the abdomen and pelvis is performed after 75 cc of Omnipaque 300 IV contrast. Oral contrast not administered. Findings: Incompletely imaged there is a large hiatal hernia containing most of the stomach, transverse colon, and the pancreas. Cardiac size is normal. Coronary artery disease is seen. There is compressive atelectasis in the lung bases adjacent to the hiatal hernia. Common bile duct is mildly dilated but tapers distally and is probably normal for this patient. Cholecystectomy. The liver, spleen, and adrenal glands are normal. Mild atherosclerotic calcification of the abdominal aorta, no aneurysm. Kidneys enhance symmetrically, no hydronephrosis. There is no dilated small bowel. Much of the small bowel is air-filled. Appendix is not seen, no secondary signs of appendicitis. There is descending colon diverticulosis. No colon wall thickening is appreciated. No abdominal adenopathy or free fluid. Atrophic uterus. Vaginal pessary is noted. The urinary bladder is normal. There are moderate bilateral fat-containing inguinal hernias. Multilevel disc space narrowing and vacuum disc phenomenon of the thoracolumbar spine. No acute fracture is seen. IMPRESSION: 1. No acute abdominal or pelvic abnormality. 2. Descending colon diverticulosis. 3. Large hiatal hernia contains stomach, transverse colon, and pancreas. Electronically signed by: Lucas Soriano MD (03/01/2020 1:38 PM) [id number] DICTATED and SIGNED BY: LUCAS SORIANO MD DATE: 03/01/20 1338 Course & Med Decision Making: Course & Med Decision Making Pertinent Labs and Imaging studies reviewed. (See chart for details) This is a 74-year-old female patient presenting to the ED today complaining of r ectal bleeding, abdominal pain and nausea, symptoms began yesterday. Positive Hemoccult. Hemoglobin 11.6, hematocrit 33.6. Positive Hemoccult. Sodium 121, patient is alert oriented x3. Was given IV fluids. CT of the abdomen and pelvic was negative for any acute findings, noted for large hiatal hernia and diverticulosis. Routine consult was placed for general surgery. Routine consult also placed for GI. Patient was given Pepcid in the ED and IV fluids. Positive for UTI, Rocephin ordered. Admitted under Dr. Rosenthal. Jane Disclaimer: Jnae Disclaimer: This electronic medical record was generated, in whole or in part, using a voice recognition dictation system. Departure Departure Impression: Primary Impression: Hiatal hernia Additional Impressions: Rectal bleeding Urinary tract infection Qualified Codes: N39.0 - Urinary tract infection, site not specified Disposition: 09 ADMITTED INPT THIS HOSP Condition: STABLE Referrals: OTTONIEL GOULD MD (PCP) MOLLY TEJADA BOOT TURNER Mar 01, 2020 15:13
[2020-03-01] MEDS ORDERED: cefTRIAXone IV Push 1 GM VIAL. IVP ONE (15:45)
[2020-03-01] MEDS ORDERED: ONDANSETRON PF 4 MG/2 ML VIAL. IV PRN ×2 (15:45→17:45)
[2020-03-01 17:00] VITALS: BP 132/63
[2020-03-01] MEDS: IV NORMAL SALINE 1000ML BAG 1,000 ML IV SCH (17:44)
[2020-03-01] MEDS ORDERED: MAG HYDROX/ALUMINUM HYD/SIMETH 30 ML ORAL.SUSP PO PRN (17:45)
[2020-03-01] MEDS ORDERED: ZOLPIDEM 5 MG TABLET. PO PRN (17:45)
[2020-03-01] MEDS ORDERED: ALBUTEROL SULFATE 2.5 MG/3 ML NEBU. NEB PRN (17:45)
[2020-03-01] MEDS ORDERED: guaiFENesin ORAL 200 MG/10 ML LIQUID. PO PRN (17:45)
[2020-03-01] MEDS ORDERED: 0.9 % SODIUM CHLORIDE 10 ML DISP.SYRIN. IV PRN (17:45)
[2020-03-01] MEDS ORDERED: DOCUSATE SODIUM 100 MG CAPSULE. PO PRN (17:45)
[2020-03-01] MEDS ORDERED: ACETAMINOPHEN 325 MG TABLET. PO PRN (17:45)
[2020-03-01] MEDS ORDERED: IBUP200C9 PO (17:56)
[2020-03-01] MEDS: PANTOPRAZOLE IV PUSH 40 MG VIAL. IVP SCH (18:22)
--- NOTE | 2020-03-01 19:24 | NUR ---
The patient, MARCY OHARA, 74 y/o, F admitted by AMA MYERS MD, was given written information regarding hospital policies, unit procedures and contact persons. Valuables were checked and oriented to room. All questions answered. Will continue to monitor according to poc.
[2020-03-01 20:20] VITALS: BP 127/67
[2020-03-01 21:07] LABS: HEMATOCRIT 28.9 % (36.0-47.0); RED BLOOD COUNT 3.05 x10^6/uL (3.50-5.40); RED CELL DISTRIBUTION WIDTH 11.7 % (11.5-14.5); WHITE BLOOD COUNT 7.9 x10^3/uL (4.0-11.0)
[2020-03-01 23:05] VITALS: BP 116/56
[2020-03-02] VITALS (9 sets, daily range): BP systolic 105–136; BP diastolic 59–78
[2020-03-02] MEDS: IV NORMAL SALINE 1000ML BAG 1,000 ML IV SCH ×2 (02:28→16:01)
[2020-03-02 06:00] LABS: BASO % 0 % (0-3); EOS % 1 % (0-3); HEMATOCRIT 28.9 % (36.0-47.0); LYMPH # 1.6 x10^3/uL (1.0-4.8); LYMPH % 29 % (24-48); MEAN CORPUSCULAR HEMOGLOBIN 33 pg (25-35); MEAN CORPUSCULAR HGB CONC 35 g/dL (31-37); MEAN CORPUSCULAR VOLUME 96 fL (79-100); MONO # 0.6 x10^3/uL (0.0-1.1); MONO % 10 % (0-9); NEUT # 3.2 x10^3/uL (1.8-7.7); NEUT % 59 % (31-73); PLATELET COUNT 199 x10^3/uL (140-400); RED BLOOD COUNT 3.02 x10^6/uL (3.50-5.40); RED CELL DISTRIBUTION WIDTH 11.7 % (11.5-14.5); WHITE BLOOD COUNT 5.5 x10^3/uL (4.0-11.0)
[2020-03-02 06:01] LABS: HEMATOCRIT 29.2 % (36.0-47.0); RED BLOOD COUNT 3.04 x10^6/uL (3.50-5.40); RED CELL DISTRIBUTION WIDTH 11.9 % (11.5-14.5); WHITE BLOOD COUNT 5.4 x10^3/uL (4.0-11.0)
[2020-03-02 06:17] LABS: ALBUMIN/GLOBULIN RATIO 1.4 (1.0-1.7); CREATININE 0.6 mg/dL (0.6-1.0); GFR 97.5; POTASSIUM 3.5 mmol/L (3.5-5.1); TOTAL BILIRUBIN 0.4 mg/dL (0.2-1.0); TOTAL PROTEIN 5.1 g/dL (6.4-8.2)
--- NOTE | 2020-03-02 07:57 | PDOC ---
[facility] PROGRESS NOTE Date of Service DOS: DATE: 03/02/20 TIME: 07:56 Chief Complaint Chief Complaint Descending colon diverticulosis. Large hiatal hernia contains stomach, transverse colon, and pancreas. rectal bleed, ACUTE moderate hyponatremia uti History of Present Illness History of Present Illness Mr Whitt is a 74 year old Greek-speaking female patient with a history of acid reflux, anxiety, presenting to the ED today complaining of rectal bleeding that began the morning of 03/01 at 2 AM. Denies any fever. hgb 11.6 in ER, HOWEVER Na was low at 121 Na 132 today. Still with some dark stools. Hb stable at 10. Seen by GI - EGD today. Vitals/I&O Vitals/I&O: Vital Signs Date Time Temp Pulse Resp B/P (MAP) Pulse Ox O2 Delivery O2 Flow Rate FiO2 03/02/20 07:00 97.8 87 17 129/65 (86) 96 Room Air 97.8 I & O 03/01/20 03/01/20 03/02/20 15:00 23:00 07:00 Intake Total 1000 ml 1000 ml 1927 ml Balance 1000 ml 1000 ml 1927 ml Physical Exam General: Alert, Oriented X3, Cooperative, No acute distress Abdomen: Normal bowel sounds, Soft Extremities: No cyanosis Skin: No breakdown Labs Labs: Laboratory Tests Test 03/01/20 12:11 03/01/20 12:15 03/01/20 12:35 03/01/20 21:00 Urine Collection Type Unknown Urine Color Yellow Urine Clarity Clear Urine pH 6.0 (<5.0-8.0) Urine Specific [place] 1.020 (1.000-1.030) Urine Protein Negative mg/dL (NEG-TRACE) Urine Glucose (UA) 250 mg/dL (NEG) Urine Ketones (Stick) Trace mg/dL (NEG) Urine Blood Trace (NEG) Urine Nitrite Negative (NEG) Urine Bilirubin Negative (NEG) Urine Urobilinogen Dipstick 0.2 mg/dL (0.2 mg/dL) Urine Leukocyte Esterase Large (NEG) Urine RBC 1-2 /HPF (0-2) Urine WBC 20-40 /HPF (0-4) Urine Squamous Epithelial Cells Mod /LPF Urine Bacteria Many /HPF (0-FEW) Urine Opiates Screen Neg (NEG) Urine Methadone Screen Neg (NEG) Urine Barbiturates Neg (NEG) Urine Phencyclidine Screen Neg (NEG) Urine Amphetamine/Methamphetamine Neg (NEG) Urine Benzodiazepines Screen Neg (NEG) Urine Cocaine Screen Neg (NEG) Urine Cannabinoids Screen Neg (NEG) Urine Ethyl Alcohol Neg (NEG) Stool Occult Blood Positive (NEG) White Blood Count 10.0 x10^3/uL (4.0-11.0) 7.9 x10^3/uL (4.0-11.0) Red Blood Count 3.55 x10^6/uL (3.50-5.40) 3.05 x10^6/uL (3.50-5.40) Hemoglobin 11.6 g/dL (12.0-15.5) 10.0 g/dL (12.0-15.5) Hematocrit 33.6 % (36.0-47.0) 28.9 % (36.0-47.0) Mean Corpuscular Volume 95 fL (79-100) 95 fL (79-100) Mean Corpuscular Hemoglobin 33 pg (25-35) 33 pg (25-35) Mean Corpuscular Hemoglobin Concent 34 g/dL (31-37) 34 g/dL (31-37) Red Cell Distribution Width 11.8 % (11.5-14.5) 11.7 % (11.5-14.5) Platelet Count 235 x10^3/uL (140-400) 195 x10^3/uL (140-400) Neutrophils (%) (Auto) 82 % (31-73) Lymphocytes (%) (Auto) 11 % (24-48) Monocytes (%) (Auto) 6 % (0-9) Eosinophils (%) (Auto) 0 % (0-3) Basophils (%) (Auto) 0 % (0-3) Neutrophils # (Auto) 8.2 x10^3/uL (1.8-7.7) Lymphocytes # (Auto) 1.1 x10^3/uL (1.0-4.8) Monocytes # (Auto) 0.6 x10^3/uL (0.0-1.1) Eosinophils # (Auto) 0.0 x10^3/uL (0.0-0.7) Basophils # (Auto) 0.0 x10^3/uL (0.0-0.2) Prothrombin Time 12.9 SEC (11.7-14.0) Prothromb Time International Ratio 1.0 (0.8-1.1) Activated Partial Thromboplast Time 27 SEC (24-38) Sodium Level 121 mmol/L (136-145) Potassium Level 3.8 mmol/L (3.5-5.1) Chloride Level 88 mmol/L (98-107) Carbon Dioxide Level 26 mmol/L (21-32) Anion Gap 7 (6-14) Blood Urea Nitrogen 25 mg/dL (7-20) Creatinine 0.5 mg/dL (0.6-1.0) Estimated GFR (Cockcroft-Gault) 120.3 BUN/Creatinine Ratio 50 (6-20) Glucose Level 144 mg/dL (70-99) Calcium Level 8.0 mg/dL (8.5-10.1) Magnesium Level 1.5 mg/dL (1.8-2.4) Total Bilirubin 0.4 mg/dL (0.2-1.0) Aspartate Amino Transf (AST/SGOT) 16 U/L (15-37) Alanine Aminotransferase (ALT/SGPT) 17 U/L (14-59) Alkaline Phosphatase 37 U/L (46-116) Total Protein 6.5 g/dL (6.4-8.2) Albumin 3.5 g/dL (3.4-5.0) Albumin/Globulin Ratio 1.2 (1.0-1.7) Lipase 85 U/L (73-393) Ethyl Alcohol Level < 10 mg/dL (0-10) Test 03/02/20 04:30 White Blood Count 5.4 x10^3/uL (4.0-11.0) Red Blood Count 3.04 x10^6/uL (3.50-5.40) Hemoglobin 10.0 g/dL (12.0-15.5) Hematocrit 29.2 % (36.0-47.0) Mean Corpuscular Volume 96 fL (79-100) Mean Corpuscular Hemoglobin 33 pg (25-35) Mean Corpuscular Hemoglobin Concent 34 g/dL (31-37) Red Cell Distribution Width 11.9 % (11.5-14.5) Platelet Count 199 x10^3/uL (140-400) Neutrophils (%) (Auto) 59 % (31-73) Lymphocytes (%) (Auto) 29 % (24-48) Monocytes (%) (Auto) 10 % (0-9) Eosinophils (%) (Auto) 1 % (0-3) Basophils (%) (Auto) 0 % (0-3) Neutrophils # (Auto) 3.2 x10^3/uL (1.8-7.7) Lymphocytes # (Auto) 1.6 x10^3/uL (1.0-4.8) Monocytes # (Auto) 0.6 x10^3/uL (0.0-1.1) Eosinophils # (Auto) 0.0 x10^3/uL (0.0-0.7) Basophils # (Auto) 0.0 x10^3/uL (0.0-0.2) Sodium Level 133 mmol/L (136-145) Potassium Level 3.5 mmol/L (3.5-5.1) Chloride Level 100 mmol/L (98-107) Carbon Dioxide Level 24 mmol/L (21-32) Anion Gap 9 (6-14) Blood Urea Nitrogen 6 mg/dL (7-20) Creatinine 0.6 mg/dL (0.6-1.0) Estimated GFR (Cockcroft-Gault) 97.5 BUN/Creatinine Ratio 10 (6-20) Glucose Level 87 mg/dL (70-99) Calcium Level 7.0 mg/dL (8.5-10.1) Total Bilirubin 0.4 mg/dL (0.2-1.0) Aspartate Amino Transf (AST/SGOT) 19 U/L (15-37) Alanine Aminotransferase (ALT/SGPT) 15 U/L (14-59) Alkaline Phosphatase 27 U/L (46-116) Total Protein 5.1 g/dL (6.4-8.2) Albumin 3.0 g/dL (3.4-5.0) Albumin/Globulin Ratio 1.4 (1.0-1.7) Assessment and Plan Assessmemt and Plan Problems Medical Problems: (1) Hiatal hernia Status: Acute (2) Rectal bleeding Status: Acute (3) Urinary tract infection Status: Acute Comment Review of Relevant I have reviewed the following items rachana (where applicable) has been applied. Medications: Current Medications Medications (Trade) Dose Ordered Sig/Alo Route PRN Reason Start Time Stop Time Status Last Admin Dose Admin Famotidine (Pepcid Vial) 20 mg 1X ONCE IVP 03/01/20 12:30 03/01/20 12:31 DC 03/01/20 12:40 Sodium Chloride 1,000 ml @ 1,000 mls/hr 1X ONCE IV 03/01/20 12:30 03/01/20 13:29 DC 03/01/20 12:41 Iohexol (Omnipaque 300 Mg/ml) 75 ml 1X ONCE IV 03/01/20 13:00 03/01/20 13:04 DC 03/01/20 13:00 Sodium Chloride 1,000 ml @ 1,000 mls/hr 1X ONCE IV 03/01/20 14:00 03/01/20 14:59 DC 03/01/20 14:28 Lorazepam (Ativan Inj) 0.5 mg 1X ONCE IVP 03/01/20 14:30 03/01/20 14:31 DC 03/01/20 14:27 Sodium Chloride 1,000 ml @ 100 mls/hr 1X ONCE IV 03/01/20 15:45 03/02/20 01:44 DC 03/01/20 15:55 Ceftriaxone Sodium (Rocephin) 1 gm 1X ONCE IVP 03/01/20 15:45 03/01/20 15:46 DC 03/01/20 15:55 Lorazepam (Ativan Inj) 1 mg PRN Q12HR PRN IVP ANXIETY / AGITATION 03/01/20 15:45 03/01/20 22:21 Sodium Chloride 1,000 ml @ 100 mls/hr Q10H IV 03/01/20 17:44 03/02/20 02:28 Pantoprazole Sodium (PROTONIX VIAL for IV PUSH) 40 mg DAILYAC IVP 03/01/20 18:15 03/01/20 18:22 Justifications for Admission Other Justification JAVY BILL MD Mar 02, 2020 07:57
--- NOTE | 2020-03-02 08:49 | PDOC2 ---
ERICKSON WELLS [employer] 03/02/20 0848: CONSULT Date of Consult Date of Consult DATE: 03/02/20 TIME: 08:42 Reason for Consult Reason for Consult: HH Referring Physician Referring Physician: ER Identification/Chief Complaint Chief Complaint rectal bleeding Source Source: Chart review, Patient History of Present Illness Reason for Visit: Family present and interprets for patient. Acute onset of rectal bleeding, dark black blood at 2 am. She reports this happened many years ago, resolved without intervention. Reports hx of ulcer disease, restricts her diet, however not on any medications and unsure if EGD in past. Her med rec indicates NSAID use also. No abdominal pain Past Medical History Cardiovascular: HTN, Hyperlipidemia GI: GERD, GI bleed, Peptic Ulcer disease (?) Musculoskeletal: Osteoarthritis Past Surgical History Past Surgical History: No pertinent history Family History Family History: Hypertension Social History No ALCOHOL: none Drugs: None Current Problem List Problem List Problems Medical Problems: (1) Hiatal hernia Status: Acute (2) Rectal bleeding Status: Acute (3) Urinary tract infection Status: Acute Current Medications Current Medications Current Medications Famotidine (Pepcid Vial) 20 mg 1X ONCE IVP Last administered on 03/01/20at 12:40; Start 03/01/20 at 12:30; Stop 03/01/20 at 12:31; Status DC Sodium Chloride 1,000 ml @ 1,000 mls/hr 1X ONCE IV Last administered on 03/01/20at 12:41; Start 03/01/20 at 12:30; Stop 03/01/20 at 13:29; Status DC Iohexol (Omnipaque 300 Mg/ml) 75 ml 1X ONCE IV Last administered on 03/01/20at 13:00; Start 03/01/20 at 13:00; Stop 03/01/20 at 13:04; Status DC Info (CONTRAST GIVEN -- Rx MONITORING) 1 each PRN DAILY PRN MC SEE COMMENTS; Start 03/01/20 at 13:15; Stop 03/03/20 at 13:14 Sodium Chloride 1,000 ml @ 1,000 mls/hr 1X ONCE IV Last administered on 03/01/20at 14:28; Start 03/01/20 at 14:00; Stop 03/01/20 at 14:59; Status DC Lorazepam (Ativan Inj) 0.5 mg 1X ONCE IVP Last administered on 03/01/20at 14:27; Start 03/01/20 at 14:30; Stop 03/01/20 at 14:31; Status DC Ondansetron HCl (Zofran) 4 mg PRN Q8HRS PRN IV NAUSEA/VOMITING; Start 03/01/20 at 15:45; Stop 03/02/20 at 15:44 Sodium Chloride 1,000 ml @ 100 mls/hr 1X ONCE IV Last administered on 03/01/20at 15:55; Start 03/01/20 at 15:45; Stop 03/02/20 at 01:44; Status DC Ceftriaxone Sodium (Rocephin) 1 gm 1X ONCE IVP Last administered on 03/01/20at 15:55; Start 03/01/20 at 15:45; Stop 03/01/20 at 15:46; Status DC Lorazepam (Ativan Inj) 1 mg PRN Q12HR PRN IVP ANXIETY / AGITATION Last administered on 03/01/20at 22:21; Start 03/01/20 at 15:45 Sodium Chloride (Normal Saline Flush) 3 ml QSHIFT PRN IV AFTER MEDS AND BLOOD DRAWS; Start 03/01/20 at 17:45 Sodium Chloride 1,000 ml @ 100 mls/hr Q10H IV Last administered on 03/02/20at 02:28; Start 03/01/20 at 17:44 Ondansetron HCl (Zofran) 4 mg PRN Q4HRS PRN IV NAUSEA/VOMITING; Start 03/01/20 at 17:45 Zolpidem Tartrate (Ambien) 5 mg PRN QHS PRN PO INSOMNIA; Start 03/01/20 at 17:45 Acetaminophen (Tylenol) 650 mg PRN Q4HRS PRN PO TEMP OVER 100.4F OR MILD PAIN; Start 03/01/20 at 17:45 Al Hydroxide/Mg Hydroxide (Mylanta Plus Xs) 30 ml PRN DAILY PRN PO HEARTBURN / GAS; Start 03/01/20 at 17:45 Docusate Sodium (Colace) 100 mg PRN BID PRN PO HARD STOOLS; Start 03/01/20 at 17:45 Albuterol Sulfate (Ventolin Neb Soln) 2.5 mg PRN Q4HRS PRN NEB SHORTNESS OF BREATH; Start 03/01/20 at 17:45 Guaifenesin (Robitussin) 200 mg PRN Q4HRS PRN PO COUGH; Start 03/01/20 at 17:45 Lorazepam (Ativan) 0.5 mg PRN Q4HRS PRN PO ANXIETY / AGITATION; Start 03/01/20 at 17:45 Ceftriaxone Sodium (Rocephin) 1 gm Q24H IVP ; Start 03/02/20 at 15:00 Pantoprazole Sodium (PROTONIX VIAL for IV PUSH) 40 mg DAILYAC IVP Last administered on 03/01/20at 18:22; Start 03/01/20 at 18:15 Active Scripts Active Reported Advil (Ibuprofen) 200 Mg Capsule 200 Mg PO HS Clonazepam 1 Mg Tablet 1 Mg PO DAILY Allergies Allergies: Coded Allergies: No Known Drug Allergies (Unverified , 05/04/17) ROS General: No: Chills, Other (fevers ) PSYCHOLOGICAL ROS: No: Anxiety, Depression Eyes: No Blurry vision, No Double vision HEENT: No: Heacaches, Sore Throat Hematological and Lymphatic: YES: Bleeding Problems; No: Blood Clots Respiratory: No: Cough, Shortness of breath Cardiovascular: No Chest Pain, No Palpitations Gastrointestinal: Yes Other (see hpi) Genitourinary: No Dysuria, No Hematuria Musculoskeletal: No Joint Pain, No Muscle Pain Neurological: No Impaired Coord/balance, No Numbness/Tingling Skin: No Pruritus, No Rash Physical Exam General: Alert, Oriented X3 HEENT: Atraumatic, PERRLA, Mucous membr. moist/pink Lungs: Clear to auscultation, Normal air movement Heart: Regular rate, Normal S1, Normal S2 Abdomen: Soft, No tenderness, No hepatosplenomegaly Extremities: No clubbing, No cyanosis Skin: No rashes, No breakdown Neuro: Normal gait, Normal speech Psych/Mental Status: Mental status NL, Mood NL MUSCULOSKELETAL: No joint tenderness, No deformity, No swelling Vitals VITALS Vital Signs Date Time Temp Pulse Resp B/P (MAP) Pulse Ox O2 Delivery O2 Flow Rate FiO2 03/02/20 07:00 97.8 87 17 129/65 (86) 96 Room Air 97.8 Labs Labs Laboratory Tests Test 03/01/20 12:11 03/01/20 12:15 03/01/20 12:35 03/01/20 21:00 Urine Collection Type Unknown Urine Color Yellow Urine Clarity Clear Urine pH 6.0 (<5.0-8.0) Urine Specific [place] 1.020 (1.000-1.030) Urine Protein Negative mg/dL (NEG-TRACE) Urine Glucose (UA) 250 mg/dL (NEG) Urine Ketones (Stick) Trace mg/dL (NEG) Urine Blood Trace (NEG) Urine Nitrite Negative (NEG) Urine Bilirubin Negative (NEG) Urine Urobilinogen Dipstick 0.2 mg/dL (0.2 mg/dL) Urine Leukocyte Esterase Large (NEG) Urine RBC 1-2 /HPF (0-2) Urine WBC 20-40 /HPF (0-4) Urine Squamous Epithelial Cells Mod /LPF Urine Bacteria Many /HPF (0-FEW) Urine Opiates Screen Neg (NEG) Urine Methadone Screen Neg (NEG) Urine Barbiturates Neg (NEG) Urine Phencyclidine Screen Neg (NEG) Urine Amphetamine/Methamphetamine Neg (NEG) Urine Benzodiazepines Screen Neg (NEG) Urine Cocaine Screen Neg (NEG) Urine Cannabinoids Screen Neg (NEG) Urine Ethyl Alcohol Neg (NEG) Stool Occult Blood Positive (NEG) White Blood Count 10.0 x10^3/uL (4.0-11.0) 7.9 x10^3/uL (4.0-11.0) Red Blood Count 3.55 x10^6/uL (3.50-5.40) 3.05 x10^6/uL (3.50-5.40) Hemoglobin 11.6 g/dL (12.0-15.5) 10.0 g/dL (12.0-15.5) Hematocrit 33.6 % (36.0-47.0) 28.9 % (36.0-47.0) Mean Corpuscular Volume 95 fL (79-100) 95 fL (79-100) Mean Corpuscular Hemoglobin 33 pg (25-35) 33 pg (25-35) Mean Corpuscular Hemoglobin Concent 34 g/dL (31-37) 34 g/dL (31-37) Red Cell Distribution Width 11.8 % (11.5-14.5) 11.7 % (11.5-14.5) Platelet Count 235 x10^3/uL (140-400) 195 x10^3/uL (140-400) Neutrophils (%) (Auto) 82 % (31-73) Lymphocytes (%) (Auto) 11 % (24-48) Monocytes (%) (Auto) 6 % (0-9) Eosinophils (%) (Auto) 0 % (0-3) Basophils (%) (Auto) 0 % (0-3) Neutrophils # (Auto) 8.2 x10^3/uL (1.8-7.7) Lymphocytes # (Auto) 1.1 x10^3/uL (1.0-4.8) Monocytes # (Auto) 0.6 x10^3/uL (0.0-1.1) Eosinophils # (Auto) 0.0 x10^3/uL (0.0-0.7) Basophils # (Auto) 0.0 x10^3/uL (0.0-0.2) Prothrombin Time 12.9 SEC (11.7-14.0) Prothromb Time International Ratio 1.0 (0.8-1.1) Activated Partial Thromboplast Time 27 SEC (24-38) Sodium Level 121 mmol/L (136-145) Potassium Level 3.8 mmol/L (3.5-5.1) Chloride Level 88 mmol/L (98-107) Carbon Dioxide Level 26 mmol/L (21-32) Anion Gap 7 (6-14) Blood Urea Nitrogen 25 mg/dL (7-20) Creatinine 0.5 mg/dL (0.6-1.0) Estimated GFR (Cockcroft-Gault) 120.3 BUN/Creatinine Ratio 50 (6-20) Glucose Level 144 mg/dL (70-99) Calcium Level 8.0 mg/dL (8.5-10.1) Magnesium Level 1.5 mg/dL (1.8-2.4) Total Bilirubin 0.4 mg/dL (0.2-1.0) Aspartate Amino Transf (AST/SGOT) 16 U/L (15-37) Alanine Aminotransferase (ALT/SGPT) 17 U/L (14-59) Alkaline Phosphatase 37 U/L (46-116) Total Protein 6.5 g/dL (6.4-8.2) Albumin 3.5 g/dL (3.4-5.0) Albumin/Globulin Ratio 1.2 (1.0-1.7) Lipase 85 U/L (73-393) Ethyl Alcohol Level < 10 mg/dL (0-10) Test 03/02/20 04:30 White Blood Count 5.4 x10^3/uL (4.0-11.0) Red Blood Count 3.04 x10^6/uL (3.50-5.40) Hemoglobin 10.0 g/dL (12.0-15.5) Hematocrit 29.2 % (36.0-47.0) Mean Corpuscular Volume 96 fL (79-100) Mean Corpuscular Hemoglobin 33 pg (25-35) Mean Corpuscular Hemoglobin Concent 34 g/dL (31-37) Red Cell Distribution Width 11.9 % (11.5-14.5) Platelet Count 199 x10^3/uL (140-400) Neutrophils (%) (Auto) 59 % (31-73) Lymphocytes (%) (Auto) 29 % (24-48) Monocytes (%) (Auto) 10 % (0-9) Eosinophils (%) (Auto) 1 % (0-3) Basophils (%) (Auto) 0 % (0-3) Neutrophils # (Auto) 3.2 x10^3/uL (1.8-7.7) Lymphocytes # (Auto) 1.6 x10^3/uL (1.0-4.8) Monocytes # (Auto) 0.6 x10^3/uL (0.0-1.1) Eosinophils # (Auto) 0.0 x10^3/uL (0.0-0.7) Basophils # (Auto) 0.0 x10^3/uL (0.0-0.2) Sodium Level 133 mmol/L (136-145) Potassium Level 3.5 mmol/L (3.5-5.1) Chloride Level 100 mmol/L (98-107) Carbon Dioxide Level 24 mmol/L (21-32) Anion Gap 9 (6-14) Blood Urea Nitrogen 6 mg/dL (7-20) Creatinine 0.6 mg/dL (0.6-1.0) Estimated GFR (Cockcroft-Gault) 97.5 BUN/Creatinine Ratio 10 (6-20) Glucose Level 87 mg/dL (70-99) Calcium Level 7.0 mg/dL (8.5-10.1) Total Bilirubin 0.4 mg/dL (0.2-1.0) Aspartate Amino Transf (AST/SGOT) 19 U/L (15-37) Alanine Aminotransferase (ALT/SGPT) 15 U/L (14-59) Alkaline Phosphatase 27 U/L (46-116) Total Protein 5.1 g/dL (6.4-8.2) Albumin 3.0 g/dL (3.4-5.0) Albumin/Globulin Ratio 1.4 (1.0-1.7) Laboratory Tests Test 03/01/20 12:11 03/01/20 12:15 03/01/20 12:35 03/01/20 21:00 Urine Collection Type Unknown Urine Color Yellow Urine Clarity Clear Urine pH 6.0 (<5.0-8.0) Urine Specific [place] 1.020 (1.000-1.030) Urine Protein Negative mg/dL (NEG-TRACE) Urine Glucose (UA) 250 mg/dL (NEG) Urine Ketones (Stick) Trace mg/dL (NEG) Urine Blood Trace (NEG) Urine Nitrite Negative (NEG) Urine Bilirubin Negative (NEG) Urine Urobilinogen Dipstick 0.2 mg/dL (0.2 mg/dL) Urine Leukocyte Esterase Large (NEG) Urine RBC 1-2 /HPF (0-2) Urine WBC 20-40 /HPF (0-4) Urine Squamous Epithelial Cells Mod /LPF Urine Bacteria Many /HPF (0-FEW) Urine Opiates Screen Neg (NEG) Urine Methadone Screen Neg (NEG) Urine Barbiturates Neg (NEG) Urine Phencyclidine Screen Neg (NEG) Urine Amphetamine/Methamphetamine Neg (NEG) Urine Benzodiazepines Screen Neg (NEG) Urine Cocaine Screen Neg (NEG) Urine Cannabinoids Screen Neg (NEG) Urine Ethyl Alcohol Neg (NEG) Stool Occult Blood Positive (NEG) White Blood Count 10.0 x10^3/uL (4.0-11.0) 7.9 x10^3/uL (4.0-11.0) Red Blood Count 3.55 x10^6/uL (3.50-5.40) 3.05 x10^6/uL (3.50-5.40) Hemoglobin 11.6 g/dL (12.0-15.5) 10.0 g/dL (12.0-15.5) Hematocrit 33.6 % (36.0-47.0) 28.9 % (36.0-47.0) Mean Corpuscular Volume 95 fL (79-100) 95 fL (79-100) Mean Corpuscular Hemoglobin 33 pg (25-35) 33 pg (25-35) Mean Corpuscular Hemoglobin Concent 34 g/dL (31-37) 34 g/dL (31-37) Red Cell Distribution Width 11.8 % (11.5-14.5) 11.7 % (11.5-14.5) Platelet Count 235 x10^3/uL (140-400) 195 x10^3/uL (140-400) Neutrophils (%) (Auto) 82 % (31-73) Lymphocytes (%) (Auto) 11 % (24-48) Monocytes (%) (Auto) 6 % (0-9) Eosinophils (%) (Auto) 0 % (0-3) Basophils (%) (Auto) 0 % (0-3) Neutrophils # (Auto) 8.2 x10^3/uL (1.8-7.7) Lymphocytes # (Auto) 1.1 x10^3/uL (1.0-4.8) Monocytes # (Auto) 0.6 x10^3/uL (0.0-1.1) Eosinophils # (Auto) 0.0 x10^3/uL (0.0-0.7) Basophils # (Auto) 0.0 x10^3/uL (0.0-0.2) Prothrombin Time 12.9 SEC (11.7-14.0) Prothromb Time International Ratio 1.0 (0.8-1.1) Activated Partial Thromboplast Time 27 SEC (24-38) Sodium Level 121 mmol/L (136-145) Potassium Level 3.8 mmol/L (3.5-5.1) Chloride Level 88 mmol/L (98-107) Carbon Dioxide Level 26 mmol/L (21-32) Anion Gap 7 (6-14) Blood Urea Nitrogen 25 mg/dL (7-20) Creatinine 0.5 mg/dL (0.6-1.0) Estimated GFR (Cockcroft-Gault) 120.3 BUN/Creatinine Ratio 50 (6-20) Glucose Level 144 mg/dL (70-99) Calcium Level 8.0 mg/dL (8.5-10.1) Magnesium Level 1.5 mg/dL (1.8-2.4) Total Bilirubin 0.4 mg/dL (0.2-1.0) Aspartate Amino Transf (AST/SGOT) 16 U/L (15-37) Alanine Aminotransferase (ALT/SGPT) 17 U/L (14-59) Alkaline Phosphatase 37 U/L (46-116) Total Protein 6.5 g/dL (6.4-8.2) Albumin 3.5 g/dL (3.4-5.0) Albumin/Globulin Ratio 1.2 (1.0-1.7) Lipase 85 U/L (73-393) Ethyl Alcohol Level < 10 mg/dL (0-10) Test 03/02/20 04:30 White Blood Count 5.4 x10^3/uL (4.0-11.0) Red Blood Count 3.04 x10^6/uL (3.50-5.40) Hemoglobin 10.0 g/dL (12.0-15.5) Hematocrit 29.2 % (36.0-47.0) Mean Corpuscular Volume 96 fL (79-100) Mean Corpuscular Hemoglobin 33 pg (25-35) Mean Corpuscular Hemoglobin Concent 34 g/dL (31-37) Red Cell Distribution Width 11.9 % (11.5-14.5) Platelet Count 199 x10^3/uL (140-400) Neutrophils (%) (Auto) 59 % (31-73) Lymphocytes (%) (Auto) 29 % (24-48) Monocytes (%) (Auto) 10 % (0-9) Eosinophils (%) (Auto) 1 % (0-3) Basophils (%) (Auto) 0 % (0-3) Neutrophils # (Auto) 3.2 x10^3/uL (1.8-7.7) Lymphocytes # (Auto) 1.6 x10^3/uL (1.0-4.8) Monocytes # (Auto) 0.6 x10^3/uL (0.0-1.1) Eosinophils # (Auto) 0.0 x10^3/uL (0.0-0.7) Basophils # (Auto) 0.0 x10^3/uL (0.0-0.2) Sodium Level 133 mmol/L (136-145) Potassium Level 3.5 mmol/L (3.5-5.1) Chloride Level 100 mmol/L (98-107) Carbon Dioxide Level 24 mmol/L (21-32) Anion Gap 9 (6-14) Blood Urea Nitrogen 6 mg/dL (7-20) Creatinine 0.6 mg/dL (0.6-1.0) Estimated GFR (Cockcroft-Gault) 97.5 BUN/Creatinine Ratio 10 (6-20) Glucose Level 87 mg/dL (70-99) Calcium Level 7.0 mg/dL (8.5-10.1) Total Bilirubin 0.4 mg/dL (0.2-1.0) Aspartate Amino Transf (AST/SGOT) 19 U/L (15-37) Alanine Aminotransferase (ALT/SGPT) 15 U/L (14-59) Alkaline Phosphatase 27 U/L (46-116) Total Protein 5.1 g/dL (6.4-8.2) Albumin 3.0 g/dL (3.4-5.0) Albumin/Globulin Ratio 1.4 (1.0-1.7) Assessment/Plan Assessment/Plan GI bleed--? ulcer disease--GI consult pending, NSAID use at home hgb 10 HH--can FU with Dr Lake as an outpt once stable and released AMA SANTOS MD 03/02/20 1009: CONSULT Assessment/Plan Assessment/Plan Patient seen and examined by me currently stable resting comfortably. Hemoglobin stable abdomen benign. Awaiting GIs evaluation. Asymptomatic hiatal hernia quite large would have her follow-up with Dr. Lake as outpatient upon resolution of her GI bleed. Agree with [facility] assessment and plan ERICKSON WELLS APRN Mar 02, 2020 08:48 AMA SANTOS MD Mar 02, 2020 10:09
--- NOTE | 2020-03-02 09:57 | PDOC2 ---
GI CONSULT Date of Service: DATE: 03/02/20 TIME: 09:57 Reason For Consult: lower GI bleed HPI: HPI: 74 y/o female who speaks Turkish. Translation help from granddaughter at bedside with whom she lives. In usual state of health until Monday - "I don't feel good." Then early Monday morning started having black stools and feeling "an empty space" in her stomach and it was decided to come to the hospital. Reports h/o "ulcer for 25 years." Chart mentions h/o H. pylori - neither pt nor granddaughter know anything about this. H/o GERD previously on ranitidine and omeprazole but no acid reducers for several years. Says avoids spicy foods and does okay. Belches a lot. No dysphagia, vomiting, abd pain, diarrhea, constipation, hematochezia, change in appetite, or weight loss. No previous EGD or colonoscopy. S/p cholecystectomy. No liver or pancreas history. Takes 6 Advil daily. PMH: PMH: per HPI, anxiety, cataracts Social History: Smoke: No ALCOHOL: none Drugs: None ROS: GEN: Denies fevers, chills, sweats HEENT: Denies blurred vision, sore throat CV: Denies chest pain RESP: Denies shortness of air, cough GI: Per HPI : Denies hematuria, dysuria ENDO: Denies weight changes NEURO: Denies confusion, dizziness MSK: Denies weakness, joint pain/swelling SKIN: Denies jaundice, pruritus Vitals: Vitals: Vital Signs Date Time Temp Pulse Resp B/P (MAP) Pulse Ox O2 Delivery O2 Flow Rate FiO2 03/02/20 07:00 97.8 87 17 129/65 (86) 96 Room Air 97.8 Labs: Labs: Laboratory Tests Test 03/01/20 12:11 03/01/20 12:15 03/01/20 12:35 03/01/20 21:00 Urine Collection Type Unknown Urine Color Yellow Urine Clarity Clear Urine pH 6.0 (<5.0-8.0) Urine Specific [place] 1.020 (1.000-1.030) Urine Protein Negative mg/dL (NEG-TRACE) Urine Glucose (UA) 250 mg/dL (NEG) Urine Ketones (Stick) Trace mg/dL (NEG) Urine Blood Trace (NEG) Urine Nitrite Negative (NEG) Urine Bilirubin Negative (NEG) Urine Urobilinogen Dipstick 0.2 mg/dL (0.2 mg/dL) Urine Leukocyte Esterase Large (NEG) Urine RBC 1-2 /HPF (0-2) Urine WBC 20-40 /HPF (0-4) Urine Squamous Epithelial Cells Mod /LPF Urine Bacteria Many /HPF (0-FEW) Urine Opiates Screen Neg (NEG) Urine Methadone Screen Neg (NEG) Urine Barbiturates Neg (NEG) Urine Phencyclidine Screen Neg (NEG) Urine Amphetamine/Methamphetamine Neg (NEG) Urine Benzodiazepines Screen Neg (NEG) Urine Cocaine Screen Neg (NEG) Urine Cannabinoids Screen Neg (NEG) Urine Ethyl Alcohol Neg (NEG) Stool Occult Blood Positive (NEG) White Blood Count 10.0 x10^3/uL (4.0-11.0) 7.9 x10^3/uL (4.0-11.0) Red Blood Count 3.55 x10^6/uL (3.50-5.40) 3.05 x10^6/uL (3.50-5.40) Hemoglobin 11.6 g/dL (12.0-15.5) 10.0 g/dL (12.0-15.5) Hematocrit 33.6 % (36.0-47.0) 28.9 % (36.0-47.0) Mean Corpuscular Volume 95 fL (79-100) 95 fL (79-100) Mean Corpuscular Hemoglobin 33 pg (25-35) 33 pg (25-35) Mean Corpuscular Hemoglobin Concent 34 g/dL (31-37) 34 g/dL (31-37) Red Cell Distribution Width 11.8 % (11.5-14.5) 11.7 % (11.5-14.5) Platelet Count 235 x10^3/uL (140-400) 195 x10^3/uL (140-400) Neutrophils (%) (Auto) 82 % (31-73) Lymphocytes (%) (Auto) 11 % (24-48) Monocytes (%) (Auto) 6 % (0-9) Eosinophils (%) (Auto) 0 % (0-3) Basophils (%) (Auto) 0 % (0-3) Neutrophils # (Auto) 8.2 x10^3/uL (1.8-7.7) Lymphocytes # (Auto) 1.1 x10^3/uL (1.0-4.8) Monocytes # (Auto) 0.6 x10^3/uL (0.0-1.1) Eosinophils # (Auto) 0.0 x10^3/uL (0.0-0.7) Basophils # (Auto) 0.0 x10^3/uL (0.0-0.2) Prothrombin Time 12.9 SEC (11.7-14.0) Prothromb Time International Ratio 1.0 (0.8-1.1) Activated Partial Thromboplast Time 27 SEC (24-38) Sodium Level 121 mmol/L (136-145) Potassium Level 3.8 mmol/L (3.5-5.1) Chloride Level 88 mmol/L (98-107) Carbon Dioxide Level 26 mmol/L (21-32) Anion Gap 7 (6-14) Blood Urea Nitrogen 25 mg/dL (7-20) Creatinine 0.5 mg/dL (0.6-1.0) Estimated GFR (Cockcroft-Gault) 120.3 BUN/Creatinine Ratio 50 (6-20) Glucose Level 144 mg/dL (70-99) Calcium Level 8.0 mg/dL (8.5-10.1) Magnesium Level 1.5 mg/dL (1.8-2.4) Total Bilirubin 0.4 mg/dL (0.2-1.0) Aspartate Amino Transf (AST/SGOT) 16 U/L (15-37) Alanine Aminotransferase (ALT/SGPT) 17 U/L (14-59) Alkaline Phosphatase 37 U/L (46-116) Total Protein 6.5 g/dL (6.4-8.2) Albumin 3.5 g/dL (3.4-5.0) Albumin/Globulin Ratio 1.2 (1.0-1.7) Lipase 85 U/L (73-393) Ethyl Alcohol Level < 10 mg/dL (0-10) Test 03/02/20 04:30 White Blood Count 5.4 x10^3/uL (4.0-11.0) Red Blood Count 3.04 x10^6/uL (3.50-5.40) Hemoglobin 10.0 g/dL (12.0-15.5) Hematocrit 29.2 % (36.0-47.0) Mean Corpuscular Volume 96 fL (79-100) Mean Corpuscular Hemoglobin 33 pg (25-35) Mean Corpuscular Hemoglobin Concent 34 g/dL (31-37) Red Cell Distribution Width 11.9 % (11.5-14.5) Platelet Count 199 x10^3/uL (140-400) Neutrophils (%) (Auto) 59 % (31-73) Lymphocytes (%) (Auto) 29 % (24-48) Monocytes (%) (Auto) 10 % (0-9) Eosinophils (%) (Auto) 1 % (0-3) Basophils (%) (Auto) 0 % (0-3) Neutrophils # (Auto) 3.2 x10^3/uL (1.8-7.7) Lymphocytes # (Auto) 1.6 x10^3/uL (1.0-4.8) Monocytes # (Auto) 0.6 x10^3/uL (0.0-1.1) Eosinophils # (Auto) 0.0 x10^3/uL (0.0-0.7) Basophils # (Auto) 0.0 x10^3/uL (0.0-0.2) Sodium Level 133 mmol/L (136-145) Potassium Level 3.5 mmol/L (3.5-5.1) Chloride Level 100 mmol/L (98-107) Carbon Dioxide Level 24 mmol/L (21-32) Anion Gap 9 (6-14) Blood Urea Nitrogen 6 mg/dL (7-20) Creatinine 0.6 mg/dL (0.6-1.0) Estimated GFR (Cockcroft-Gault) 97.5 BUN/Creatinine Ratio 10 (6-20) Glucose Level 87 mg/dL (70-99) Calcium Level 7.0 mg/dL (8.5-10.1) Total Bilirubin 0.4 mg/dL (0.2-1.0) Aspartate Amino Transf (AST/SGOT) 19 U/L (15-37) Alanine Aminotransferase (ALT/SGPT) 15 U/L (14-59) Alkaline Phosphatase 27 U/L (46-116) Total Protein 5.1 g/dL (6.4-8.2) Albumin 3.0 g/dL (3.4-5.0) Albumin/Globulin Ratio 1.4 (1.0-1.7) Allergies: Coded Allergies: No Known Drug Allergies (Unverified , 05/04/17) Medications: Current Medications Medications (Trade) Dose Ordered Sig/Alo Route PRN Reason Start Time Stop Time Status Last Admin Dose Admin Famotidine (Pepcid Vial) 20 mg 1X ONCE IVP 03/01/20 12:30 03/01/20 12:31 DC 03/01/20 12:40 Sodium Chloride 1,000 ml @ 1,000 mls/hr 1X ONCE IV 03/01/20 12:30 03/01/20 13:29 DC 03/01/20 12:41 Iohexol (Omnipaque 300 Mg/ml) 75 ml 1X ONCE IV 03/01/20 13:00 03/01/20 13:04 DC 03/01/20 13:00 Sodium Chloride 1,000 ml @ 1,000 mls/hr 1X ONCE IV 03/01/20 14:00 03/01/20 14:59 DC 03/01/20 14:28 Lorazepam (Ativan Inj) 0.5 mg 1X ONCE IVP 03/01/20 14:30 03/01/20 14:31 DC 03/01/20 14:27 Sodium Chloride 1,000 ml @ 100 mls/hr 1X ONCE IV 03/01/20 15:45 03/02/20 01:44 DC 03/01/20 15:55 Ceftriaxone Sodium (Rocephin) 1 gm 1X ONCE IVP 03/01/20 15:45 03/01/20 15:46 DC 03/01/20 15:55 Lorazepam (Ativan Inj) 1 mg PRN Q12HR PRN IVP ANXIETY / AGITATION 03/01/20 15:45 03/01/20 22:21 Sodium Chloride 1,000 ml @ 100 mls/hr Q10H IV 03/01/20 17:44 03/02/20 02:28 Pantoprazole Sodium (PROTONIX VIAL for IV PUSH) 40 mg DAILYAC IVP 03/01/20 18:15 03/01/20 18:22 Imaging: Imaging: CT A/P Findings: Incompletely imaged there is a large hiatal hernia containing most of the stomach, transverse colon, and the pancreas. Cardiac size is normal. Coronary artery disease is seen. There is compressive atelectasis in the lung bases adjacent to the hiatal hernia. Common bile duct is mildly dilated but tapers distally and is probably normal for this patient. Cholecystectomy. The liver, spleen, and adrenal glands are normal. Mild atherosclerotic calcification of the abdominal aorta, no aneurysm. Kidneys enhance symmetrically, no hydronephrosis. There is no dilated small bowel. Much of the small bowel is air-filled. Appendix is not seen, no secondary signs of appendicitis. There is descending colon diverticulosis. No colon wall thickening is appreciated. No abdominal adenopathy or free fluid. Atrophic uterus. Vaginal pessary is noted. The urinary bladder is normal. There are moderate bilateral fat-containing inguinal hernias. Multilevel disc space narrowing and vacuum disc phenomenon of the thoracolumbar spine. No acute fracture is seen. IMPRESSION: 1. No acute abdominal or pelvic abnormality. 2. Descending colon diverticulosis. 3. Large hiatal hernia contains stomach, transverse colon, and pancreas. PE: GEN: NAD HEENT: Atraumatic, PERRL LUNGS: CTAB HEART: RRR ABD: NABS, S/ND/NT EXTREMITY: No edema SKIN: No rashes, no jaundice NEURO/PSYCH: A & O 3 A/P: A/P: Melena Normocytic anemia, +Hemoccult, elevated BUN (resolved) UTI - per primary GERD - currently untreated Remote h/o "ulcer" - no previous EGD Large HH containing stomach, transverse colon, and pancreas - on CT CRC screen - none Diverticulosis - noted on CT S/p cholecystectomy NSAID use -- Remain NPO for EGD later today pending COVID swab per protocol. Agree w/ PPI - continue IV for now. NEY APODACA Mar 02, 2020 09:57
[2020-03-02] MEDS: PANTOPRAZOLE IV PUSH 40 MG VIAL. IVP SCH (10:37)
[2020-03-02] MEDS ORDERED: IV RINGERS,LACTATED 1000ML 1,000 ML IV ONE (12:15)
[2020-03-02] MEDS ORDERED: PROPOFOL 10 MG/ML (20ML) VIAL. IV ONE (14:36)
--- NOTE | 2020-03-02 14:58 | PDOC4 ---
PROCEDURE Procedure EGD/biopsies Indication: Melena Meds: per anesthesia Findings: E--normal, GEJ at 31cm G--difficult to negotiate proximally due to thoracic stomach. In antrum 3 ulcers, largest 8mm with red dot c/w recent bleeding. Antral biopsies taken. D--Normal to second portion. Jerry. well. IMP: Antral ulcers, one with recent bleeding. Large HH. REC: Continue PPI, clears at most next 48 hours. If no further bleeding, advance diet and po PPI. Await biopsies. OTTONIEL JESSICA MD Mar 02, 2020 14:58
--- NOTE | 2020-03-02 15:47 | NUR ---
SW following. Spoke with RN and reviewed chart. Pt from home. Pt on IV Rocephin, room air, clear liquid diet. Pt's Rapid COVID result negative. SW following.
[2020-03-02] MEDS: cefTRIAXone IV Push 1 GM VIAL. IVP SCH (16:02)
[2020-03-02] MEDS: LORazepam 0.5 MG TABLET PO PRN (20:55)
[2020-03-02 21:43] LABS: HEMATOCRIT 29.5 % (36.0-47.0); HEMOGLOBIN 9.9 g/dL (12.0-15.5); RED BLOOD COUNT 3.05 x10^6/uL (3.50-5.40); RED CELL DISTRIBUTION WIDTH 12.1 % (11.5-14.5); WHITE BLOOD COUNT 7.8 x10^3/uL (4.0-11.0)
[2020-03-03] MEDS: IV NORMAL SALINE 1000ML BAG 1,000 ML IV SCH ×3 (01:56→21:47)
[2020-03-03 03:00] VITALS: BP 123/69
[2020-03-03] MEDS: PANTOPRAZOLE IV PUSH 40 MG VIAL. IVP SCH (06:17)
[2020-03-03 07:00] VITALS: BP 116/65
--- NOTE | 2020-03-03 08:19 | PDOC ---
[facility] [facility] PROGRESS NOTE Date of Service DOS: DATE: 03/03/20 TIME: 08:18 Chief Complaint Chief Complaint Descending colon diverticulosis. Large hiatal hernia contains stomach, transverse colon, and pancreas. rectal bleed, ACUTE moderate hyponatremia uti History of Present Illness History of Present Illness Mr Whitt is a 74 year old Kiswahili-speaking female patient with a history of acid reflux, anxiety, presenting to the ED today complaining of rectal bleeding that began the morning of 03/01 at 2 AM. Denies any fever. hgb 11.6 in ER, HOWEVER Na was low at 121 03/02: Na 132. Hb stable at 10. GI - EGD: E-normal, GEJ at 31cm; G- antrum 3 ulcers, largest 8mm with red dot c/w recent bleeding. Antral biopsies taken. D- Normal Feeling well today. Afebrile. Asking when she can go home. Hb post procedure 9.9. Recommended clear liquid for 48 hours and PPI Vitals/I&O Vitals/I&O: Vital Signs Date Time Temp Pulse Resp B/P (MAP) Pulse Ox O2 Delivery O2 Flow Rate FiO2 03/03/20 03:00 99.4 72 18 123/69 (87) 94 Room Air 99.4 03/02/20 14:55 2 I & O 03/02/20 03/02/20 03/03/20 15:00 23:00 07:00 Intake Total 500 ml 400 ml Balance 500 ml 400 ml Physical Exam General: Alert, Oriented X3 Heart: Regular rate, Normal S1, Normal S2 Abdomen: Soft, No tenderness, No hepatosplenomegaly Extremities: No clubbing, No cyanosis Skin: No rashes, No breakdown Labs Labs: Laboratory Tests Test 03/02/20 08:45 03/02/20 10:30 03/02/20 12:45 03/02/20 21:12 Urine Random Sodium 66 mmol/L (Not Estab.) SARS-CoV-2 Antigen (Rapid) Negative (NEGATIVE) Iron Level 81 ug/dL (50-170) Total Iron Binding Capacity 253 ug/dL (250-450) Iron Saturation 32 % (15-34) Vitamin B12 Level 266 pg/mL (247-911) White Blood Count 7.8 x10^3/uL (4.0-11.0) Red Blood Count 3.05 x10^6/uL (3.50-5.40) Hemoglobin 9.9 g/dL (12.0-15.5) Hematocrit 29.5 % (36.0-47.0) Mean Corpuscular Volume 97 fL (79-100) Mean Corpuscular Hemoglobin 33 pg (25-35) Mean Corpuscular Hemoglobin Concent 34 g/dL (31-37) Red Cell Distribution Width 12.1 % (11.5-14.5) Platelet Count 200 x10^3/uL (140-400) Assessment and Plan Assessmemt and Plan Problems Medical Problems: (1) Hiatal hernia Status: Acute (2) Rectal bleeding Status: Acute (3) Urinary tract infection Status: Acute Comment Review of Relevant I have reviewed the following items rachana (where applicable) has been applied. Medications: Current Medications Medications (Trade) Dose Ordered Sig/Alo Route PRN Reason Start Time Stop Time Status Last Admin Dose Admin Ceftriaxone Sodium (Rocephin) 1 gm Q24H IVP 03/02/20 15:00 03/02/20 16:02 Justifications for Admission Other Justification JAVY BILL MD Mar 03, 2020 08:19
--- NOTE | 2020-03-03 10:02 | NUR ---
SW following for discharge planning. Spoke with RN and reviewed chart. Pt to discharge home today, self-care. Pt to discharge on room air and or medications. No further SW needs at this time.
[2020-03-03 10:59] VITALS: BP 132/64
[2020-03-03 11:08] LABS: HEMATOCRIT 29.9 % (36.0-47.0); HEMOGLOBIN 10.2 g/dL (12.0-15.5); RED BLOOD COUNT 3.09 x10^6/uL (3.50-5.40); RED CELL DISTRIBUTION WIDTH 12.1 % (11.5-14.5); WHITE BLOOD COUNT 6.1 x10^3/uL (4.0-11.0)
--- NOTE | 2020-03-03 11:38 | PDOC ---
Date of Service: DATE: 03/03/20 TIME: 11:30 Subjective: Subjective: Wants applesauce. No bleeding. Doesn't want to take pantoprazole because omeprazole and ranitidine made everything worse. Granddaughter says she takes Advil "for everything - it's her miracle pill" and feels she is unlikely to stop taking. Says "nobody can take away her Advil or clonazepam." Now says she had a "lab test for an ulcer" awhile ago. Objective: Objective: Nurse asks if she can go home. Vital Signs: Vital Signs Date Time Temp Pulse Resp B/P (MAP) Pulse Ox O2 Delivery O2 Flow Rate FiO2 03/03/20 10:59 97.9 77 18 132/64 (86) 96 Room Air 97.9 03/02/20 14:55 2 Labs: Laboratory Tests Test 03/02/20 12:45 03/02/20 21:12 03/03/20 10:51 Iron Level 81 ug/dL Total Iron Binding Capacity 253 ug/dL Iron Saturation 32 % Vitamin B12 Level 266 pg/mL White Blood Count 7.8 x10^3/uL 6.1 x10^3/uL Red Blood Count 3.05 x10^6/uL 3.09 x10^6/uL Hemoglobin 9.9 g/dL 10.2 g/dL Hematocrit 29.5 % 29.9 % Mean Corpuscular Volume 97 fL 97 fL Mean Corpuscular Hemoglobin 33 pg 33 pg Mean Corpuscular Hemoglobin Concent 34 g/dL 34 g/dL Red Cell Distribution Width 12.1 % 12.1 % Platelet Count 200 x10^3/uL 215 x10^3/uL URINE CULTURE Final Final Less than 10,000 cfu/mL, no further workup unless requested within 3 days. Imaging: EGD 03/02 E--normal, GEJ at 31cm G--difficult to negotiate proximally due to thoracic stomach. In antrum 3 ulcers, largest 8mm with red dot c/w recent bleeding. Antral biopsies taken. D--Normal to second portion. Jerry. well. IMP: Antral ulcers, one with recent bleeding. Large HH. REC: Continue PPI, clears at most next 48 hours. If no further bleeding, advance diet and po PPI. Await biopsies. PE: GEN: NAD LUNGS: CTAB HEART: RRR ABD: S/ND/NT NEURO/PSYCH: A & O 3 - speaks Thai, granddaughter translates A/P: Gastric ulcers (biopsy pending), large hiatal hernia Melena (resolved), anemia (stable) Long h/o NSAID use -- Previous recs to keep to clears x 48 hours - she's asking for applesauce - will check w/ Dr. Diggs. Change to PO PPI if she'll take it. We discussed alternative to NSAIDs - she agrees to try something different - defer to primary. B12 lowish - ?treat Justicifation of Admission Dx: Justifications for Admission: Justification of Admission Dx: Yes NEY APODACA Mar 03, 2020 11:38
--- NOTE | 2020-03-03 13:50 | PDOC ---
ERICKSON WELLS TELEPHONE SERVICE REPRESENTATIVE 03/03/20 1350: SURGICAL PROGRESS NOTE DATE: 03/03/20 TIME: 13:48 Subjective tolerating clears some reflux no further stool or blood since yesterday Vital Signs Vital Signs Date Time Temp Pulse Resp B/P (MAP) Pulse Ox O2 Delivery O2 Flow Rate FiO2 03/03/20 10:59 97.9 77 18 132/64 (86) 96 Room Air 97.9 03/02/20 14:55 2 I&O Intake and Output 03/03/20 07:00 Intake Total 900 ml Balance 900 ml Intake Oral 900 ml # Voids 4 # Bowel Movements 1 General: Alert, Oriented X3, Cooperative Abdomen: Soft, No tenderness Labs Laboratory Tests Test 03/01/20 21:00 03/02/20 04:30 03/02/20 08:45 03/02/20 10:30 White Blood Count 7.9 x10^3/uL (4.0-11.0) 5.4 x10^3/uL (4.0-11.0) Red Blood Count 3.05 x10^6/uL (3.50-5.40) 3.04 x10^6/uL (3.50-5.40) Hemoglobin 10.0 g/dL (12.0-15.5) 10.0 g/dL (12.0-15.5) Hematocrit 28.9 % (36.0-47.0) 29.2 % (36.0-47.0) Mean Corpuscular Volume 95 fL (79-100) 96 fL (79-100) Mean Corpuscular Hemoglobin 33 pg (25-35) 33 pg (25-35) Mean Corpuscular Hemoglobin Concent 34 g/dL (31-37) 34 g/dL (31-37) Red Cell Distribution Width 11.7 % (11.5-14.5) 11.9 % (11.5-14.5) Platelet Count 195 x10^3/uL (140-400) 199 x10^3/uL (140-400) Neutrophils (%) (Auto) 59 % (31-73) Lymphocytes (%) (Auto) 29 % (24-48) Monocytes (%) (Auto) 10 % (0-9) Eosinophils (%) (Auto) 1 % (0-3) Basophils (%) (Auto) 0 % (0-3) Neutrophils # (Auto) 3.2 x10^3/uL (1.8-7.7) Lymphocytes # (Auto) 1.6 x10^3/uL (1.0-4.8) Monocytes # (Auto) 0.6 x10^3/uL (0.0-1.1) Eosinophils # (Auto) 0.0 x10^3/uL (0.0-0.7) Basophils # (Auto) 0.0 x10^3/uL (0.0-0.2) Sodium Level 133 mmol/L (136-145) Potassium Level 3.5 mmol/L (3.5-5.1) Chloride Level 100 mmol/L (98-107) Carbon Dioxide Level 24 mmol/L (21-32) Anion Gap 9 (6-14) Blood Urea Nitrogen 6 mg/dL (7-20) Creatinine 0.6 mg/dL (0.6-1.0) Estimated GFR (Cockcroft-Gault) 97.5 BUN/Creatinine Ratio 10 (6-20) Glucose Level 87 mg/dL (70-99) Calcium Level 7.0 mg/dL (8.5-10.1) Total Bilirubin 0.4 mg/dL (0.2-1.0) Aspartate Amino Transf (AST/SGOT) 19 U/L (15-37) Alanine Aminotransferase (ALT/SGPT) 15 U/L (14-59) Alkaline Phosphatase 27 U/L (46-116) Total Protein 5.1 g/dL (6.4-8.2) Albumin 3.0 g/dL (3.4-5.0) Albumin/Globulin Ratio 1.4 (1.0-1.7) Urine Random Sodium 66 mmol/L (Not Estab.) SARS-CoV-2 Antigen (Rapid) Negative (NEGATIVE) Test 03/02/20 12:45 03/02/20 21:12 03/03/20 10:51 Iron Level 81 ug/dL (50-170) Total Iron Binding Capacity 253 ug/dL (250-450) Iron Saturation 32 % (15-34) Vitamin B12 Level 266 pg/mL (247-911) White Blood Count 7.8 x10^3/uL (4.0-11.0) 6.1 x10^3/uL (4.0-11.0) Red Blood Count 3.05 x10^6/uL (3.50-5.40) 3.09 x10^6/uL (3.50-5.40) Hemoglobin 9.9 g/dL (12.0-15.5) 10.2 g/dL (12.0-15.5) Hematocrit 29.5 % (36.0-47.0) 29.9 % (36.0-47.0) Mean Corpuscular Volume 97 fL (79-100) 97 fL (79-100) Mean Corpuscular Hemoglobin 33 pg (25-35) 33 pg (25-35) Mean Corpuscular Hemoglobin Concent 34 g/dL (31-37) 34 g/dL (31-37) Red Cell Distribution Width 12.1 % (11.5-14.5) 12.1 % (11.5-14.5) Platelet Count 200 x10^3/uL (140-400) 215 x10^3/uL (140-400) Laboratory Tests Test 03/02/20 21:12 03/03/20 10:51 White Blood Count 7.8 x10^3/uL (4.0-11.0) 6.1 x10^3/uL (4.0-11.0) Red Blood Count 3.05 x10^6/uL (3.50-5.40) 3.09 x10^6/uL (3.50-5.40) Hemoglobin 9.9 g/dL (12.0-15.5) 10.2 g/dL (12.0-15.5) Hematocrit 29.5 % (36.0-47.0) 29.9 % (36.0-47.0) Mean Corpuscular Volume 97 fL (79-100) 97 fL (79-100) Mean Corpuscular Hemoglobin 33 pg (25-35) 33 pg (25-35) Mean Corpuscular Hemoglobin Concent 34 g/dL (31-37) 34 g/dL (31-37) Red Cell Distribution Width 12.1 % (11.5-14.5) 12.1 % (11.5-14.5) Platelet Count 200 x10^3/uL (140-400) 215 x10^3/uL (140-400) Problem List Problems Medical Problems: (1) Hiatal hernia Status: Acute (2) Rectal bleeding Status: Acute (3) Urinary tract infection Status: Acute Assessment/Plan as per Gi will leave contact info to FU as outpt with Dr Lake for HH available as needed Justicifation of Admission Dx: Justifications for Admission: Justification of Admission Dx: Yes AMA SANTOS MD 03/03/20 1556: SURGICAL PROGRESS NOTE Assessment/Plan Agree with Lexii's assessment and plan ERICKSON WELLS APRN Mar 03, 2020 13:50 AMA SANTOS MD Mar 03, 2020 15:56
[2020-03-03 13:51] LABS: CALCIUM 7.3 mg/dL (8.5-10.1); CREATININE 0.5 mg/dL (0.6-1.0); GFR 120.3
[2020-03-03 14:10] LABS: POTASSIUM 2.9 mmol/L (3.5-5.1)
[2020-03-03] MEDS ORDERED: POTASSIUM BICARB 10 MEQ EFFERVESCENT TABLET. PO ONE (14:15)
[2020-03-03] MEDS: cefTRIAXone IV Push 1 GM VIAL. IVP SCH (14:37)
[2020-03-03] MEDS: POTASSIUM CHLORIDE 10MEQ 100 ML IV SCH ×2 (14:38→16:21)
[2020-03-03 15:00] VITALS: BP 125/53
[2020-03-03 15:15] LABS: URINE OSMOLALITY 202 mOsmol/kg (.)
[2020-03-03 19:00] VITALS: BP 142/67
[2020-03-03 21:08] LABS: HEMATOCRIT 30.8 % (36.0-47.0); HEMOGLOBIN 10.9 g/dL (12.0-15.5); RED BLOOD COUNT 3.21 x10^6/uL (3.50-5.40)
[2020-03-03] MEDS: LORazepam 0.5 MG TABLET PO PRN (21:47)
[2020-03-03 23:00] VITALS: BP 110/47
[2020-03-04 03:00] VITALS: BP 141/60
[2020-03-04] MEDS: IV NORMAL SALINE 1000ML BAG 1,000 ML IV SCH (06:05)
[2020-03-04 07:00] VITALS: BP 137/53
[2020-03-04] MEDS ORDERED: PANTOPRAZOLE 40 MG TABLET.DR. PO SCH (07:30)
--- NOTE | 2020-03-04 07:57 | PDOC ---
[facility] [facility] PROGRESS NOTE Date of Service DOS: DATE: 03/04/20 TIME: 07:54 Chief Complaint Chief Complaint Descending colon diverticulosis. Large hiatal hernia contains stomach, transverse colon, and pancreas. rectal bleed, ACUTE moderate hyponatremia uti History of Present Illness History of Present Illness Mr Whitt is a 74 year old Armenian-speaking female patient with a history of acid reflux, anxiety, presenting to the ED today complaining of rectal bleeding that began the morning of 03/01 at 2 AM. Denies any fever. hgb 11.6 in ER, HOWEVER Na was low at 121 03/02: Na 132. Hb stable at 10. GI - EGD: E-normal, GEJ at 31cm; G- antrum 3 ulcers, largest 8mm with red dot c/w recent bleeding. Antral biopsies taken. D- Normal 03/03: Feeling well today. Afebrile. Asking when she can go home. Hb post procedure 9.9, K2.7. Recommended clear liquid for 48 hours and PPI Feeling well. no further stool or blood since yesterday. Her granddaughter notes that she does not want to stop taking Advil or clonazepam and feels like Pepcid and omeprazole may have made this worse. When the long discussion about the importance of PPI or stopping Advil. Granddaughter has encouraged her. Potassium this morning pending. Vitals/I&O Vitals/I&O: Vital Signs Date Time Temp Pulse Resp B/P (MAP) Pulse Ox O2 Delivery O2 Flow Rate FiO2 03/04/20 07:00 98.4 66 18 137/53 (81) 95 Room Air 98.4 I & O 03/03/20 03/03/20 03/04/20 15:00 23:00 07:00 Intake Total 320 ml 260 ml 50 ml Balance 320 ml 260 ml 50 ml Physical Exam General: Alert, Oriented X3, Cooperative Heart: Regular rate, Normal S1, Normal S2 Abdomen: Soft, No tenderness Extremities: No clubbing, No cyanosis Skin: No rashes, No breakdown Labs Labs: Laboratory Tests Test 03/03/20 10:51 03/03/20 12:30 03/03/20 21:02 White Blood Count 6.1 x10^3/uL (4.0-11.0) 6.0 x10^3/uL (4.0-11.0) Red Blood Count 3.09 x10^6/uL (3.50-5.40) 3.21 x10^6/uL (3.50-5.40) Hemoglobin 10.2 g/dL (12.0-15.5) 10.9 g/dL (12.0-15.5) Hematocrit 29.9 % (36.0-47.0) 30.8 % (36.0-47.0) Mean Corpuscular Volume 97 fL (79-100) 96 fL (79-100) Mean Corpuscular Hemoglobin 33 pg (25-35) 34 pg (25-35) Mean Corpuscular Hemoglobin Concent 34 g/dL (31-37) 36 g/dL (31-37) Red Cell Distribution Width 12.1 % (11.5-14.5) 12.0 % (11.5-14.5) Platelet Count 215 x10^3/uL (140-400) 214 x10^3/uL (140-400) Sodium Level 136 mmol/L (136-145) Potassium Level 2.9 mmol/L (3.5-5.1) Chloride Level 103 mmol/L (98-107) Carbon Dioxide Level 23 mmol/L (21-32) Anion Gap 10 (6-14) Blood Urea Nitrogen 2 mg/dL (7-20) Creatinine 0.5 mg/dL (0.6-1.0) Estimated GFR (Cockcroft-Gault) 120.3 Glucose Level 150 mg/dL (70-99) Calcium Level 7.3 mg/dL (8.5-10.1) Magnesium Level 2.0 mg/dL (1.8-2.4) Assessment and Plan Assessmemt and Plan Problems Medical Problems: (1) Hiatal hernia Status: Acute (2) Rectal bleeding Status: Acute (3) Urinary tract infection Status: Acute Comment Review of Relevant I have reviewed the following items rachana (where applicable) has been applied. Medications: Current Medications Medications (Trade) Dose Ordered Sig/Alo Route PRN Reason Start Time Stop Time Status Last Admin Dose Admin Pantoprazole Sodium (Protonix) 40 mg DAILYAC PO 03/04/20 07:30 03/04/20 06:04 Potassium Chloride/Water 100 ml @ 100 mls/hr Q1H IV 03/03/20 14:15 03/03/20 16:14 DC 03/03/20 16:21 Potassium Bicarbonate (Potassium Effervescent Tablet) 40 meq 1X ONCE PO 03/03/20 14:15 03/03/20 14:17 DC 03/03/20 14:38 Justifications for Admission Other Justification JAVY BILL MD Mar 04, 2020 07:57
[2020-03-04] MEDS ORDERED: PANT40TA77 PO (08:53)
[2020-03-04] MEDS ORDERED: CYANOCOBALAMIN (VITAMIN B-12) 1,000 MCG/ML VIAL IM ONE (09:00)
[2020-03-04 09:44] LABS: CALCIUM 7.8 mg/dL (8.5-10.1); CREATININE 0.6 mg/dL (0.6-1.0); GFR 97.5; POTASSIUM 3.7 mmol/L (3.5-5.1)
--- NOTE | 2020-03-04 10:45 | PDOC ---
Date of Service: DATE: 03/04/20 TIME: 10:41 Subjective: Subjective: Indicates no pain or bleeding, also indicates she's hungry. Objective: Objective: No GI concerns per nurse - DC today? Got B12 inj. Vital Signs: Vital Signs Date Time Temp Pulse Resp B/P (MAP) Pulse Ox O2 Delivery O2 Flow Rate FiO2 03/04/20 08:57 95 Room Air 03/04/20 07:00 98.4 66 18 137/53 (81) 98.4 Labs: Laboratory Tests Test 03/03/20 10:51 03/03/20 12:30 03/03/20 21:02 03/04/20 08:30 White Blood Count 6.1 x10^3/uL 6.0 x10^3/uL Red Blood Count 3.09 x10^6/uL 3.21 x10^6/uL Hemoglobin 10.2 g/dL 10.9 g/dL Hematocrit 29.9 % 30.8 % Mean Corpuscular Volume 97 fL 96 fL Mean Corpuscular Hemoglobin 33 pg 34 pg Mean Corpuscular Hemoglobin Concent 34 g/dL 36 g/dL Red Cell Distribution Width 12.1 % 12.0 % Platelet Count 215 x10^3/uL 214 x10^3/uL Sodium Level 136 mmol/L 134 mmol/L Potassium Level 2.9 mmol/L 3.7 mmol/L Chloride Level 103 mmol/L 98 mmol/L Carbon Dioxide Level 23 mmol/L 26 mmol/L Anion Gap 10 10 Blood Urea Nitrogen 2 mg/dL 1 mg/dL Creatinine 0.5 mg/dL 0.6 mg/dL Estimated GFR (Cockcroft-Gault) 120.3 97.5 Glucose Level 150 mg/dL 170 mg/dL Calcium Level 7.3 mg/dL 7.8 mg/dL Magnesium Level 2.0 mg/dL PE: GEN: NAD LUNGS: CTAB HEART: RRR ABD: S/ND/NT NEURO/PSYCH: speaks Belarusian, no annealer available A/P: Gastric ulcers (biopsy pending), large hiatal hernia Anemia - stable -- Will advance diet. Dc today? - will check w/ Dr. Diggs. Continue PPI x 2 months (or indefinitely if continues NSAIDs). Follow-up on biopsy results. Justicifation of Admission Dx: Justifications for Admission: Justification of Admission Dx: Yes NEY APODACA Mar 04, 2020 10:45
[2020-03-04 10:48] VITALS: BP 135/71
--- NOTE | 2020-03-04 12:25 | PDOC3 ---
Discharge Summary Visit Information Date of Admission: Mar 01, 2020 Date of Discharge: Mar 04, 2020 Admitting Diagnosis: Acute anemia Final Diagnosis Problems Medical Problems: (1) Hiatal hernia Status: Acute (2) Rectal bleeding Status: Acute (3) Urinary tract infection Status: Acute Brief Hospital Course Allergies Allergies Coded Allergies Type Severity Reaction Last Updated Verified No Known Drug Allergies 03/02/20 No Vital Signs Vital Signs Date Time Temp Pulse Resp B/P (MAP) Pulse Ox O2 Delivery O2 Flow Rate FiO2 03/04/20 10:48 98.1 82 18 135/71 (92) 92 Room Air 98.1 Lab Results Laboratory Tests Test 03/02/20 12:45 03/02/20 21:12 03/03/20 10:51 03/03/20 12:30 Iron Level 81 ug/dL (50-170) Total Iron Binding Capacity 253 ug/dL (250-450) Iron Saturation 32 % (15-34) Vitamin B12 Level 266 pg/mL (247-911) White Blood Count 7.8 x10^3/uL (4.0-11.0) 6.1 x10^3/uL (4.0-11.0) Red Blood Count 3.05 x10^6/uL (3.50-5.40) 3.09 x10^6/uL (3.50-5.40) Hemoglobin 9.9 g/dL (12.0-15.5) 10.2 g/dL (12.0-15.5) Hematocrit 29.5 % (36.0-47.0) 29.9 % (36.0-47.0) Mean Corpuscular Volume 97 fL (79-100) 97 fL (79-100) Mean Corpuscular Hemoglobin 33 pg (25-35) 33 pg (25-35) Mean Corpuscular Hemoglobin Concent 34 g/dL (31-37) 34 g/dL (31-37) Red Cell Distribution Width 12.1 % (11.5-14.5) 12.1 % (11.5-14.5) Platelet Count 200 x10^3/uL (140-400) 215 x10^3/uL (140-400) Sodium Level 136 mmol/L (136-145) Potassium Level 2.9 mmol/L (3.5-5.1) Chloride Level 103 mmol/L (98-107) Carbon Dioxide Level 23 mmol/L (21-32) Anion Gap 10 (6-14) Blood Urea Nitrogen 2 mg/dL (7-20) Creatinine 0.5 mg/dL (0.6-1.0) Estimated GFR (Cockcroft-Gault) 120.3 Glucose Level 150 mg/dL (70-99) Calcium Level 7.3 mg/dL (8.5-10.1) Magnesium Level 2.0 mg/dL (1.8-2.4) Test 03/03/20 21:02 03/04/20 08:30 White Blood Count 6.0 x10^3/uL (4.0-11.0) Red Blood Count 3.21 x10^6/uL (3.50-5.40) Hemoglobin 10.9 g/dL (12.0-15.5) Hematocrit 30.8 % (36.0-47.0) Mean Corpuscular Volume 96 fL (79-100) Mean Corpuscular Hemoglobin 34 pg (25-35) Mean Corpuscular Hemoglobin Concent 36 g/dL (31-37) Red Cell Distribution Width 12.0 % (11.5-14.5) Platelet Count 214 x10^3/uL (140-400) Sodium Level 134 mmol/L (136-145) Potassium Level 3.7 mmol/L (3.5-5.1) Chloride Level 98 mmol/L (98-107) Carbon Dioxide Level 26 mmol/L (21-32) Anion Gap 10 (6-14) Blood Urea Nitrogen 1 mg/dL (7-20) Creatinine 0.6 mg/dL (0.6-1.0) Estimated GFR (Cockcroft-Gault) 97.5 Glucose Level 170 mg/dL (70-99) Calcium Level 7.8 mg/dL (8.5-10.1) Laboratory Tests Test 03/03/20 12:30 03/03/20 21:02 03/04/20 08:30 Sodium Level 136 mmol/L (136-145) 134 mmol/L (136-145) Potassium Level 2.9 mmol/L (3.5-5.1) 3.7 mmol/L (3.5-5.1) Chloride Level 103 mmol/L (98-107) 98 mmol/L (98-107) Carbon Dioxide Level 23 mmol/L (21-32) 26 mmol/L (21-32) Anion Gap 10 (6-14) 10 (6-14) Blood Urea Nitrogen 2 mg/dL (7-20) 1 mg/dL (7-20) Creatinine 0.5 mg/dL (0.6-1.0) 0.6 mg/dL (0.6-1.0) Estimated GFR (Cockcroft-Gault) 120.3 97.5 Glucose Level 150 mg/dL (70-99) 170 mg/dL (70-99) Calcium Level 7.3 mg/dL (8.5-10.1) 7.8 mg/dL (8.5-10.1) Magnesium Level 2.0 mg/dL (1.8-2.4) White Blood Count 6.0 x10^3/uL (4.0-11.0) Red Blood Count 3.21 x10^6/uL (3.50-5.40) Hemoglobin 10.9 g/dL (12.0-15.5) Hematocrit 30.8 % (36.0-47.0) Mean Corpuscular Volume 96 fL (79-100) Mean Corpuscular Hemoglobin 34 pg (25-35) Mean Corpuscular Hemoglobin Concent 36 g/dL (31-37) Red Cell Distribution Width 12.0 % (11.5-14.5) Platelet Count 214 x10^3/uL (140-400) Brief Hospital Course Mr Whitt is a 74 year old Guinean-speaking female patient with a history of acid reflux, anxiety, presenting to the ED today complaining of rectal bleeding that began the morning of 03/01 at 2 AM. Denies any fever. hgb 11.6 in ER, HOWEVER Na was low at 121 03/02: Na 132. Hb stable at 10. GI - EGD: E-normal, GEJ at 31cm; G- antrum 3 ulcers, largest 8mm with red dot c/w recent bleeding. Antral biopsies taken. D- Normal 03/03: Feeling well today. Afebrile. Asking when she can go home. Hb post procedure 9.9, K2.7. Recommended clear liquid for 48 hours and PPI Feeling well. no further stool or blood since yesterday. Her granddaughter notes that she does not want to stop taking Advil or clonazepam and feels like Pepcid and omeprazole may have made this worse. When the long discussion about the importance of PPI or stopping Advil. Granddaughter has encouraged her. Potassium this morning 3.7 Problem list: Gastric ulcers (biopsy pending) Descending colon diverticulosis. Large hiatal hernia contains stomach, transverse colon, and pancreas. rectal bleed, ACUTE moderate hyponatremia B12 deficiecy - s/p injection, replacement Greater than 30 minutes spent on d/c home Discharge Information Condition at Discharge: Improved Follow Up: Weeks Disposition/Orders: D/C to Home Scheduled Clonazepam (Clonazepam) 1 Mg Tablet, 1 MG PO DAILY, (Reported) Entered as Reported by: TOMEKA LEA on 05/02/171499 Last Action: Reviewed on 03/01/201755 by LINETTE FLOOD Pantoprazole Sodium (Pantoprazole Sodium ) 40 Mg Tablet.dr, 40 MG PO DAILYAC for GERD/Hiatal hernia/PUD for 30 Days, #30 Ref 1 Prescribed by: JAVY BILL MD on 03/04/20 08 Discontinued Medications Besifloxacin Hcl (Besivance) 5 Ml Drops.susp, 1 DROP OD TID, #5 (Reported) Entered as Reported by: FREDERICK RING on 05/04/17 0839 Last Action: Discontinued on 03/01/201725 by LINETTE FLOOD Hydrocodone/Apap 5-325 ([place] 5-325 Tablet) 1 Each Tablet, 1-2 TAB PO Q4HRS PRN for PAIN, #30 (Reported) Entered as Reported by: FELIX LEMOS on 05/04/17 1109 Last Action: Discontinued on 03/01/201725 by LINETTE FLOOD Ibuprofen (Advil) 200 Mg Tablet, 200 MG PO PRN PRN for PAIN, (Reported) Entered as Reported by: TOMEKA LEA on 05/02/171499 Last Action: Discontinued on 03/01/201725 by LINETTE FLOOD Ibuprofen (Advil) 200 Mg Capsule, 200 MG PO HS for pain, (Reported) Entered as Reported by: LINETTE FLOOD on 03/01/201755 Last Action: New Order on 03/01/20 175 by LINETTE FLOOD Nepafenac (Ilevro) 1.7 Ml Drops.susp, 1.7 ML OP RIGHT EYE, (Reported) Entered as Reported by: FREDERICK RING on 05/04/17 0838 Last Action: Discontinued on 03/01/201725 by LINETTE FLOOD Polyethylene Glycol 3350 (Miralax) 17 Gm Powd.pack, 1 PKT PO DAILY, (Reported) Entered as Reported by: TOMEKA LEA on 05/02/17 1500 Last Action: Discontinued on 03/01/201725 by LINETTE FLOOD Justicifation of Admission Dx: Justifications for Admission: Justification of Admission Dx: Yes JAVY BILL MD Mar 04, 2020 12:25
--- NOTE | 2020-03-04 12:30 | NUR ---
SW following for discharge planning. Spoke with RN and reviewed chart. Pt to discharge home today, self-care. Pt to discharge on room air and oral medications. No further SW needs at this time.
--- NOTE | 2020-03-04 15:22 | NUR ---
patient discharged home today with family. meds and follow up reviewed. IV removed, cath intact. pt stable upon dc.
--- NOTE | 2020-03-05 15:08 | PATHOLOGY ---
[facility] Accession Number: [id number] . 01 Material submitted: . stomach - ANTRAL BIOPSY . 01 Clinical history: . RECTAL BLEED, UTI, BLOOD IN STOOL . 02 Diagnosis: Gastric biopsies, antrum: - Chronic gastritis, mild. (JPM:jair; 03/05/2020) S 03/05/2020 1049 Local . 02 Comment: Sections of the gastric biopsy reveal segments of gastric fundic and antral/fundic transition mucosa showing congestion and mild chronic inflammation. A properly controlled immunoperoxidase stain for Helicobacter is negative for Helicobacter organisms. There is no evidence of malignancy. (JPM:jair; 03/05/2020) . Special stain performed: Immunoperoxidase stain for Helicobacter on A1. . 02 Electronically signed: . Andres Rodríguez MD, Pathologist NPI- [id number] . 01 Gross description: . The specimen is received in formalin, labeled "Sherry Jean, antral biopsy". Received are three segments of pale diamond soft tissue ranging in size from 0.2 to 0.3 cm in maximum dimensions. The specimen is submitted entirely in cassette A1. (CAA; 03/04/2020) QA/QAC 03/04/2020 1341 Local . 02 Pathologist provided ICD-10: K29.50 . 02 CPT . 261698, S00873 Specimen Comment: A courtesy copy of this report has been sent to [phone], [phone] Specimen Comment: [id number], Specimen Comment: Report sent to DR JESSICA,DR GOULD / DR MYERS Performed at: 01 [facility] [address], [place], [place] [id number] MD Favio Gagnon MD Phone: [phone] Performed at: [id number] [place], [place] [id number] MD Andres Rodríguez MD Phone: [phone]
== END 2020-03-04 15:00 | disposition home or self-care (01) | DRG 378 ==
LOC: ER 12:03 → ED HOLD 14:31 → 5 NORTH 16:49
PROVIDERS: ADMIT Family Medicine; ATTEND Family Medicine
PROC: 0DB68ZX Excision of Stomach, Via Natural or Artificial Opening Endoscopic, Diagnostic (ICD-10-PCS; principal; 2020-03-02 14:30)
DX: K25.4 Chronic or unspecified gastric ulcer with hemorrhage (principal); N39.0 Urinary tract infection, site not specified; E87.1 Hypo-osmolality and hyponatremia; M19.90 Unspecified osteoarthritis, unspecified site; F41.9 Anxiety disorder, unspecified; K21.9 Gastro-esophageal reflux disease without esophagitis; I10 Essential (primary) hypertension; E78.5 Hyperlipidemia, unspecified; Z20.828 Contact with and (suspected) exposure to other viral communicable diseases; K44.9 Diaphragmatic hernia without obstruction or gangrene; H26.9 Unspecified cataract; D64.9 Anemia, unspecified; Z90.49 Acquired absence of other specified parts of digestive tract; Z82.49 Family history of ischemic heart disease and other diseases of the circulatory system; K57.31 Diverticulosis of large intestine without perforation or abscess with bleeding
CPT/HCPCS: 36415; 43239; 74177; 80048; 80053; 80307; 81001; 82274; 82607; 83540; 83550; 83690; 83735; 83930; 83935; 84300; 85025; 85027; 85610; 85730; 87086; 87426; 94640; 96361; 96365; 96375; C9113; G0480; J0696; J2060; J2704; J3420; J3480; J3490; J7030; Q9967; U0003; 99285-25; G0378

== ENCOUNTER → 2020-03-25 | Outpatient (CLI) | payer OTHER ==
[2020-03-04 10:48] VITALS: BP 135/71
[~2020-03-25] MED LIST changes: +IBUP200C9 PO; +PANT40TA77 PO
--- NOTE | 2020-03-25 17:04 | KCIC ---
Upper GI study 03/25/2020 CLINICAL HISTORY: History of gastric ulcers. Hiatal hernia. TECHNIQUE: A single contrast upper GI study was performed under fluoroscopic control. The total fluoroscopic time is 2 minutes 40 seconds. 15 digital spot radiographs were obtained. FINDINGS: Comparison is made to a CT scan of the abdomen and pelvis dated 03/01/2020. An AP digital radiograph of the abdomen/pelvis was obtained as a cadd instructor. This demonstrates a nonobstructive bowel gas pattern. A moderate amount of stool is seen throughout the colon. Surgical clips overlie the right upper quadrant abdomen consistent with a cholecystectomy. Calcifications are seen within the pelvis consistent with phleboliths. Scattered atherosclerotic calcification of the abdominal aorta is noted. Very mild S-shaped curvature of the thoracolumbar spine is seen. Degenerative changes are seen involving lower thoracic and throughout the lumbar spine along with both hips. On the patient's CT scan the patient has a large diaphragmatic hernia which contains the majority of the stomach along with the transverse colon and a portion of the proximal jejunum. On the upper GI study the position of the GE junction is mildly elevated. The stomach extends superior to the GE junction within the lower chest consistent with a combination of a sliding and paraesophageal hernia (compound hiatal hernia). The stomach appears to be rotated along its long access without evidence of obstruction. 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 There is a small diverticulum involving the mid/distal esophagus. The mucosal pattern of the esophagus is otherwise within normal limits. Tertiary contractions of the esophagus are seen consistent with mild esophageal dysmotility. No mucosal abnormality of the stomach is definitely visualized. No mucosal abnormality of the duodenum is seen. Mild gastroesophageal reflux to the level of the lower thoracic esophagus is noted. IMPRESSION: 1. The patient has a large diaphragmatic hernia which contains a majority of the stomach. The position of the stomach within the lower chest, is consistent with a large compound hiatal hernia. 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 2. . Small esophageal diverticulum. 3. Mild esophageal dysmotility. 3. . Mild gastroesophageal reflux. Electronically signed by: Lacho Weber MD (03/25/2020 5:02 PM) [place] [id number]
== END ==
LOC: KCIC 08:32
PROVIDERS: ATTEND Surgery
DX: K21.9 Gastro-esophageal reflux disease without esophagitis (principal); K44.9 Diaphragmatic hernia without obstruction or gangrene; K22.5 Diverticulum of esophagus, acquired
CPT/HCPCS: 74240

== ENCOUNTER 2020-04-09 09:03 | Inpatient (IN) | payer OTHER ==
[~2020-04-09] VITALS: Ht 142.2 cm; Wt 56.0 kg
[2020-04-09] VITALS (9 sets, daily range): BP systolic 126–139; BP diastolic 66–80
[~2020-04-09 09:03] MED LIST changes: +BUPIVACAINE-EPI 0.5%-1:200000 MPF 30 ML VIAL. INJ ONE; +HYDROmorphone 2 MG/ML VIAL IVP PRN; +LIDOCAINE 1% PF 2 ML VIAL. ID PRN; +ONDANSETRON PF 4 MG/2 ML VIAL. IVP PRN; +PROCHLORPERAZINE 10 MG/2 ML VIAL. IVP PRN; +ceFAZolin SODIUM IV Push 1 GM VIAL. IVP ONE; +fentaNYL PF VIAL 100 MCG/2 ML VIAL IVP PRN
[2020-04-09] MEDS ORDERED: fentaNYL PF VIAL 100 MCG/2 ML VIAL ONE ×3 (09:10→16:41)
[2020-04-09] MEDS ORDERED: MIDAZOLAM HCL/PF 2 MG/2 ML VIAL. ONE (09:10)
[2020-04-09] MEDS ORDERED: ROCURONIUM 50 MG/5 ML VIAL. ONE ×2 (09:10→14:24)
[2020-04-09] MEDS ORDERED: LIDOCAINE 2% PF 5 ML VIAL. ONE (09:14)
[2020-04-09] MEDS ORDERED: DEXAMETHASONE SOD PHOS 4 MG/ML VIAL ONE (09:14)
[2020-04-09] MEDS ORDERED: PROPOFOL 10 MG/ML (20ML) VIAL. IV ONE (09:14)
[2020-04-09] MEDS ORDERED: DESFLURANE > 120 MINUTES IH ONE ×2 (09:14→15:19)
[2020-04-09] MEDS ORDERED: FAMOTIDINE 20 MG/2 ML VIAL ONE (09:14)
[2020-04-09] MEDS ORDERED: ONDANSETRON PF 4 MG/2 ML VIAL. ONE (09:14)
[2020-04-09] MEDS ORDERED: SURGICEL HEMOSTAT 4X8 EACH. ONE ×2 (10:00)
[2020-04-09] MEDS: IV RINGERS,LACTATED 1000ML 1,000 ML IV SCH ×2 (10:02→16:32)
[2020-04-09] MEDS ORDERED: PHENYLEPHRINE in 0.9% NACL PF 1 MG/10 ML SYRINGE. IV ONE (11:13)
[2020-04-09] MEDS ORDERED: PHENYLEPHRINE 10 MG/ML VIAL. ONE (11:31)
[2020-04-09] MEDS ORDERED: NEOSTIGMINE METHYLSULFATE 5 MG/5 ML SYRINGE. ONE (12:48)
[2020-04-09] MEDS ORDERED: GLYCOPYRROLATE 1 MG/5 ML VIAL. ONE (12:48)
[2020-04-09] MEDS ORDERED: ceFAZolin SODIUM IV Push 1 GM VIAL. IVP ONE ×2 (15:10→16:23)
[2020-04-09] MEDS ORDERED: 0.9 % SODIUM CHLORIDE 10 ML DISP.SYRIN. IV PRN (16:30)
[2020-04-09] MEDS ORDERED: INSULIN LISPRO 100 UNIT/ML 3ML VIAL for OP,RR ONLY. SQ ONE (16:30)
[2020-04-09] MEDS ORDERED: NALOXONE 0.4 MG/ML VIAL. IV PRN (16:30)
[2020-04-09] MEDS ORDERED: ONDANSETRON PF 4 MG/2 ML VIAL. IVP PRN (16:30)
[2020-04-09] MEDS: INSULIN LISPRO 100 UNIT/ML 3ML VIAL for OP,RR ONLY. SQ PRN ×2 (16:30→17:28)
[2020-04-09] MEDS ORDERED: PROCHLORPERAZINE 10 MG/2 ML VIAL. IV PRN (16:30)
[2020-04-09] MEDS: IV NORMAL SALINE 1000ML BAG 1,000 ML IV SCH (16:30)
--- NOTE | 2020-04-09 16:32 | PDOC4 ---
Operative Note Operative Note Operative Note Preoperative Diagnosis: Massive paraesophageal hernia with gastroesophageal reflux disease Postoperative Diagnosis: Same Procedure: Laparoscopic repair of massive paraesophageal hernia with Emelina fundoplication Surgeon: Jaya Schwartz.: Dr. Torres Anesthesia: Gen. Estimated Blood Loss: 50 mL Specimen: None Drains: None Complications: None Indications: The patient is a 74-year-old female who was referred due to a massive paraesophageal hernia containing nearly all the stomach with small bowel and pancreas in the chest.. She was referred for surgical repair. The risks of surgery were discussed which include bleeding, infection, recurrent herniation, gastric or esophageal perforation, visceral injury, recurrent reflux, gas bloat syndrome, dysphasia, potential need for additional surgeries or procedures. She understands and would like to proceed. Description: The patient was taken to the operating room and placed supine on the operating table. General anesthesia was performed. The patient was then placed in lithotomy. The abdomen was prepped with ChloraPrep and draped in a standard surgical fashion. A small incision was made superior to and to the patient's left of the umbilicus through which a visualized 5 mm trocar was inserted. A pneumoperitoneum was then created and the laparoscope was introduced. In the right lateral abdomen a 12 mm trocar was inserted through which a soft fan retractor was used to elevate the left lobe of the liver. In the right upper quadrant a 5 mm trocar was inserted. In the left upper quadrant an 11 mm trocar was inserted while in the left lateral abdomen a 5 mm trocar was inserted. Attention was then directed to the diaphragmatic hiatus. As expected there was a very large hiatal hernia defect with virtually all of the stomach present in the chest. A large amount of stomach and omentum was pulled out of the chest and able to be reduced. There was also a significant amount of small bowel that was reduced. We then began mobilizing the entire hernia sac within the mediastinum. We started this on the right side and began freeing up the sac from the right malcolm. The Harmonic scalpel assisted for much of this dissection. We continued mobilizing the sac superiorly well into the mediastinum. We continued this dissection anteriorly freeing up the sac and its attachments in this location. The dissection then continued along the left malcolm and the sac and attachments were mobilized here as well. Due to the very large size of the sac considerable time was required in freeing this out of the mediastinum. The gastrocolic omentum was then opened with the Harmonic scalpel in the upper portion of the greater curvature. We then freed up the upper part of the greater curvature and fundus using the harmonic scalpel. Large blood vessels were doubly clipped and divided. The dissection continued all the way back up to the left malcolm and any remaining splenic attachments were also mobilized. At this point the esophagus was readily visualized and we were able to free up the area around his gastroesophageal junction. A Dayton drain was then placed around the esophagus at the GE junction and clips were applied holding the Dayton in place. With retraction on the Jimbo we were able to continue freeing up any remaining sac attachments particularly in the posterior location. At this point the GE junction was well within the abdominal cavity. The left and right malcolm were then reapproximated with interrupted 2-0 silk sutures using the Endo Stitch device. Stitches were applied both anteriorly and posteriorly allowing for closure of the hernia defect. We elected to reinforce the closure with a Phasix ST biologic mesh patch. The mesh was tailored to fit the space and a slit was made to accommodate the esophagus. The mesh was then introduced and laid up against the diaphragm and around the esophagus. Initial fixation sutures were placed at the superior corners of the mesh using 2-0 silk. The entire mesh was then fixed to the diaphragm using the Tisseel fibrin glue. The fundus was then wrapped around in a 360 fashion creating the fundoplication. A shoeshine maneuver was used to ensure no twists or kinks. An initial 2-0 Ethibond suture was used securing the fundic lips together. Another suture was placed superior to this which incorporated a small bite of the anterior esop hagus. An additional suture was then placed inferiorly completing the fundoplication. At this point hemostasis was good, the hernia was well repaired with good coverage from the biologic mesh, and the fundoplication was intact with a nice orientation. The 11 and 12 mm trochars were then removed and the fascia closed with 0 Vicryl using an Endo Close. The remaining ports were re moved and the pneumoperitoneum was relieved. Skin at all incisions was closed with 4-0 Monocryl. Steri-Strips and dressings were applied. The patient tolerated the procedure well. NINA PEREA MD Apr 09, 2020 16:32
[2020-04-09] MEDS ORDERED: PROCHLORPERAZINE 10 MG/2 ML VIAL. ONE (16:41)
[2020-04-09] MEDS: fentaNYL PF VIAL 100 MCG/2 ML VIAL IVP PRN ×2 (16:54→17:15)
[2020-04-09] MEDS ORDERED: MORPHINE SULFATE 2 MG/ML VIAL. ONE (17:22)
[2020-04-09] MEDS: MORPHINE SULFATE 2 MG/ML VIAL. IVP PRN ×2 (17:29→17:51)
[2020-04-09] MEDS: IV 1/2 NORMAL SALINE 1,000 ML IV SCH (19:29)
--- NOTE | 2020-04-09 20:00 | NUR ---
Pt. states they do not eat a lot mostly because of her stomach issues. She normally can't eat lots of dairy and eats lots of soups and broths. Addendum: 04/10/20 at 0338 by SADE REYES RN Amended: Links added.
[2020-04-09] MEDS ORDERED: DICL100G54 TP (20:01)
--- NOTE | 2020-04-09 20:01 | NUR ---
Pt. arrived on unit at 1800. This RN received report by day shift RN. Pt. is asleep at this time but has 2 daughters at bedside. Call light is within reach with bed in lowest position. Will continue to monitor.
[2020-04-09] MEDS: HYDROmorphone 2 MG/ML VIAL IV PRN ×2 (21:33→23:38)
[2020-04-09] MEDS: DICLOFENAC SODIUM 1% TOPICAL GEL 100GM TUBE. TP SCH (21:34)
[2020-04-09] MEDS: diphenhydrAMINE 50 MG/ML VIAL IVP PRN (23:35)
[2020-04-10 03:14] VITALS: BP 120/68
[2020-04-10] MEDS: IV 1/2 NORMAL SALINE 1,000 ML IV SCH ×2 (05:43→17:30)
[2020-04-10 07:00] VITALS: BP_SYST 119; BP_SYST 152; BP_DIAS 61; BP_DIAS 65
[2020-04-10] MEDS: HYDROmorphone 2 MG/ML VIAL IV PRN ×2 (07:25→19:35)
[2020-04-10] MEDS: DICLOFENAC SODIUM 1% TOPICAL GEL 100GM TUBE. TP SCH ×5 (09:00→21:45)
--- NOTE | 2020-04-10 09:30 | NUR ---
SW following. Discussed with RN, pt from home with granddaughter, requiring 2L oxygen which pt does not use at home, advanced to clear liquid diet. Pt had surgery on 04/09/2020. Pt will need a 6 minute walk prior to discharge if still requiring oxygen. SW will continue to follow.
--- NOTE | 2020-04-10 09:33 | PDOC ---
ERICKSON WELLS APRN 04/10/20 0933: SURGICAL PROGRESS NOTE DATE: 04/10/20 TIME: 09:32 Subjective resting doing ok Vital Signs Vital Signs Date Time Temp Pulse Resp B/P (MAP) Pulse Ox O2 Delivery O2 Flow Rate FiO2 04/10/20 08:04 Room Air 04/10/20 07:25 2.0 04/10/20 07:00 100.3 98 17 119/65 (83) 98 100.3 I&O Intake and Output 04/10/20 07:00 Intake Total 1900 ml Output Total 360 ml Balance 1540 ml Intake Oral 0 ml IV Total 1900 ml Output Urine Total 310 ml Estimated Blood Loss 50 ml General: Alert, Oriented X3, Cooperative Abdomen: Soft, Other (lap dressings dry) Labs Laboratory Tests Test 04/09/20 10:27 04/09/20 16:17 04/09/20 17:24 Glucose (Fingerstick) 113 mg/dL (70-99) 196 mg/dL (70-99) 210 mg/dL (70-99) Laboratory Tests Test 04/09/20 10:27 04/09/20 16:17 04/09/20 17:24 Glucose (Fingerstick) 113 mg/dL (70-99) 196 mg/dL (70-99) 210 mg/dL (70-99) Assessment/Plan s/p bernarda start clears, no carbonated drinks will ask IPC to see--BS have been high Justicifation of Admission Dx: Justifications for Admission: Justification of Admission Dx: Yes NINA PEREA MD 04/10/206: SURGICAL PROGRESS NOTE Assessment/Plan agree with above ERICKSON WELLS APRN Apr 10, 2020 09:33 NINA PEREA MD Apr 10, 2020 22:06
[2020-04-10] MEDS: PANTOPRAZOLE 40 MG TABLET.DR. PO SCH (10:01)
--- NOTE | 2020-04-10 10:29 | PDOC1 ---
History and Physical Date of Admission Date of Admission DATE: 04/10/20 TIME: 10:27 Identification/Chief Complaint Chief Complaint 74 year old Italian-speaking female patient with a history of acid reflux, anxiety, ASKED to see for hyperglycemia, post-op Past Medical History Past Medical History Past Medical History Cardiovascular: HTN, Hyperlipidemia Musculoskeletal: Osteoarthritis Family History Family History: Hypertension Social History Smoke: No ALCOHOL: none Drugs: None Operative Note Operative Note Operative Note Operative Note Preoperative Diagnosis: Massive paraesophageal hernia with gastroesophageal reflux disease Postoperative Diagnosis: Same Procedure: Laparoscopic repair of massive paraesophageal hernia with Emelina fundoplication Surgeon: Jaya Schwartz.: Dr. Torres Anesthesia: Gen. Estimated Blood Loss: 50 mL Specimen: None Drains: None Complications: None Indications: The patient is a 74-year-old female who was referred due to a massive paraesophageal hernia Cardiovascular: HTN, Hyperlipidemia GI: GERD, GI bleed, Peptic Ulcer disease Musculoskeletal: Osteoarthritis Past Surgical History Past Surgical History: No pertinent history Family History Family History: Hypertension Social History Smoke: No ALCOHOL: none Drugs: None Current Medications Current Medications Current Medications Ondansetron HCl (Zofran) 4 mg PRN Q6HRS PRN IVP NAUSEA/VOMITING; Start 04/09/20 at 07:00; Stop 04/10/20 at 06:59; Status DC Fentanyl Citrate (Fentanyl 2ml Vial) 25 mcg PRN Q5MIN PRN IVP MILD PAIN 1-3; Start 04/09/20 at 07:00; Stop 04/10/20 at 06:59; Status DC Fentanyl Citrate (Fentanyl 2ml Vial) 50 mcg PRN Q5MIN PRN IVP MODERATE TO SEVERE PAIN Last administered on 04/09/20at 17:15; Start 04/09/20 at 07:00; Stop 04/10/20 at 06:59; Status DC Morphine Sulfate (Morphine Sulfate) 1 mg PRN Q10MIN PRN IVP SEVERE PAIN 7-10 Last administered on 04/09/20at 17:51; Start 04/09/20 at 07:00; Stop 04/10/20 at 06:59; Status DC Ringer's Solution 1,000 ml @ 30 mls/hr Q24H IV Last administered on 04/09/20at 16:32; Start 04/09/20 at 07:00; Stop 04/09/20 at 18:59; Status DC Lidocaine HCl (Xylocaine-Mpf 1% 2ml Vial) 2 ml PRN 1X PRN ID IV START; Start 04/09/20 at 07:00; Stop 04/10/20 at 06:59; Status DC Hydromorphone HCl (Dilaudid) 0.5 mg PRN Q10MIN PRN IVP SEV PAIN, Second choice; Start 04/09/20 at 07:00; Stop 04/10/20 at 06:59; Status DC Prochlorperazine Edisylate (Compazine) 5 mg PACU PRN PRN IVP NAUSEA, MRX1 Last administered on 04/09/20at 16:54; Start 04/09/20 at 07:00; Stop 04/10/20 at 06:59; Status DC Bupivacaine HCl/ Epinephrine Bitart (Sensorcain-Epi 0.5%-1:132575 Mpf) 30 ml 1X ONCE INJ Last administered on 04/09/20at 11:49; Start 04/09/20 at 06:00; Stop 04/09/20 at 06:01; Status DC Cefazolin Sodium (Ancef) 1 gm ONCE ONCE IVP Last administered on 04/09/20at 11:20; Start 04/09/20 at 06:00; Stop 04/09/20 at 06:01; Status DC Midazolam HCl (Versed) 2 mg STK-MED ONCE .ROUTE ; Start 04/09/20 at 09:10; Stop 04/09/20 at 09:10; Status DC Fentanyl Citrate (Fentanyl 2ml Vial) 100 mcg STK-MED ONCE .ROUTE ; Start 04/09/20 at 09:10; Stop 04/09/20 at 09:11; Status DC Rocuronium [place] (Zemuron) 50 mg STK-MED ONCE .ROUTE ; Start 04/09/20 at 09:10; Stop 04/09/20 at 09:11; Status DC Desflurane (Suprane) 90 ml STK-MED ONCE IH ; Start 04/09/20 at 09:14; Stop 04/09/20 at 09:14; Status DC Propofol (Diprivan) 200 mg STK-MED ONCE IV ; Start 04/09/20 at 09:14; Stop 04/09/20 at 09:14; Status DC Lidocaine HCl (Lidocaine Pf 2% Vial) 5 ml STK-MED ONCE .ROUTE ; Start 04/09/20 at 09:14; Stop 04/09/20 at 09:14; Status DC Ondansetron HCl (Zofran) 4 mg STK-MED ONCE .ROUTE ; Start 04/09/20 at 09:14; Stop 04/09/20 at 09:14; Status DC Famotidine (Pepcid Vial) 20 mg STK-MED ONCE .ROUTE ; Start 04/09/20 at 09:14; Stop 04/09/20 at 09:14; Status DC Dexamethasone Sodium Phosphate (Decadron) 4 mg STK-MED ONCE .ROUTE ; Start 04/09/20 at 09:14; Stop 04/09/20 at 09:14; Status DC Cellulose (Surgicel Hemostat 4x8) 1 each STK-MED ONCE .ROUTE Last administered on 04/09/20at 11:49; Start 04/09/20 at 10:00; Stop 04/09/20 at 10:01; Status DC Cellulose (Surgicel Hemostat 4x8) 1 each STK-MED ONCE .ROUTE ; Start 04/09/20 at 10:00; Stop 04/09/20 at 10:01; Status DC Phenylephrine HCl (PHENYLEPHRINE in 0.9% NACL PF) 1 mg STK-MED ONCE IV ; Start 04/09/20 at 11:13; Stop 04/09/20 at 11:13; Status DC Phenylephrine HCl (Daryl-Synephrine Inj) 10 mg STK-MED ONCE .ROUTE ; Start 04/09/20 at 11:31; Stop 04/09/20 at 11:31; Status DC Glycopyrrolate (Robinul) 1 mg STK-MED ONCE .ROUTE ; Start 04/09/20 at 12:48; Stop 04/09/20 at 12:48; Status DC Neostigmine [place] (Neostigmine Methylsulfate) 5 mg STK-MED ONCE .ROUTE ; Start 04/09/20 at 12:48; Stop 04/09/20 at 12:48; Status DC Rocuronium [place] (Zemuron) 50 mg STK-MED ONCE .ROUTE ; Start 04/09/20 at 14:24; Stop 04/09/20 at 14:25; Status DC Fentanyl Citrate (Fentanyl 2ml Vial) 100 mcg STK-MED ONCE .ROUTE ; Start 04/09/20 at 14:54; Stop 04/09/20 at 14:54; Status DC Desflurane (Suprane) 90 ml STK-MED ONCE IH ; Start 04/09/20 at 15:19; Stop 04/09/20 at 15:20; Status DC Cefazolin Sodium (Ancef) 1 gm 1X ONCE IVP Last administered on 04/09/20at 16:26; Start 04/09/20 at 15:10; Stop 04/09/20 at 16:25; Status DC Cefazolin Sodium (Ancef) 1 gm STK-MED ONCE IVP ; Start 04/09/20 at 16:23; Stop 04/09/20 at 16:23; Status DC Insulin Human Lispro (HumaLOG VIAL for OP,RR ONLY) 0-10 units PRN Q1HR PRN SQ PER PROTOCOL Last administered on 04/09/20at 17:28; Start 04/09/20 at 16:30; Stop 04/10/20 at 16:29 Sodium Chloride (Normal Saline Flush) 3 ml QSHIFT PRN IV AFTER MEDS AND BLOOD DRAWS; Start 04/09/20 at 16:30 Sodium Chloride 1,000 ml @ 80 mls/hr [id number] IV Last administered on 04/10/20at 05:43; Start 04/09/20 at 16:30 Naloxone HCl (Narcan) 0.4 mg PRN Q2MIN PRN IV SEE INSTRUCTIONS; Start 04/09/20 at 16:30 Sodium Chloride 1,000 ml @ 25 mls/hr Q24H IV ; Start 04/09/20 at 16:30 Hydromorphone HCl (Dilaudid) 0.2 mg PRN Q1HR PRN IV PAIN Last administered on 04/10/20at 07:25; Start 04/09/20 at 16:30 Ondansetron HCl (Zofran) 4 mg PRN Q6HRS PRN IVP NAUESA, 1ST CHOICE; Start 04/09/20 at 16:30 Prochlorperazine Edisylate (Compazine) 5 mg PRN Q6HRS PRN IV N/V, 2nd Choice, MR X1; Start 04/09/20 at 16:30 Prochlorperazine Edisylate (Compazine) 10 mg STK-MED ONCE .ROUTE ; Start 04/09/20 at 16:41; Stop 04/09/20 at 16:41; Status DC Fentanyl Citrate (Fentanyl 2ml Vial) 100 mcg STK-MED ONCE .ROUTE ; Start 04/09/20 at 16:41; Stop 04/09/20 at 16:41; Status DC Morphine Sulfate (Morphine Sulfate) 2 mg STK-MED ONCE .ROUTE ; Start 04/09/20 at 17:22; Stop 04/09/20 at 17:22; Status DC Diphenhydramine HCl (Benadryl) 25 mg PRN QHS PRN IVP ITCHING Last administered on 04/09/20at 23:35; Start 04/09/20 at 20:30 Diclofenac Sodium (Voltaren) 1 radha QID TP Last administered on 04/09/20at 21:34; Start 04/09/20 at 21:00 Pantoprazole Sodium (Protonix) 40 mg DAILYAC PO Last administered on 04/10/20at 10:01; Start 04/10/20 at 09:30 Acetaminophen/ Hydrocodone Bitart (Lortab 7.5-325/ 15ml Oral Solution) 15 ml PRN Q6HRS PRN PO PAIN; Start 04/10/20 at 09:45 Active Scripts Active Pantoprazole Sodium (Pantoprazole Sodium) 40 Mg Tablet.dr 40 Mg PO DAILYAC 30 Days Reported Voltaren (Diclofenac Sodium) 100 Gm Gel..gram. 1 Gm TP QID 30 Days apply to affected area(s) Clonazepam 1 Mg Tablet 1 Mg PO DAILY Allergies Allergies: Coded Allergies: No Known Drug Allergies (Unverified , 03/02/20) ROS Review of System GEN: Denies fevers, chills, sweats HEENT: Denies blurred vision, sore throat CV: Denies chest pain RESP: Denies shortness of air, cough GI: Per HPI : Denies hematuria, dysuria ENDO: Denies weight changes NEURO: Denies confusion, dizziness MSK: Denies weakness, joint pain/swelling SKIN: Denies jaundice, pruritus post op pain as expected 14 PT ROS OTHERWISE NEG General: YES: Fatigue PSYCHOLOGICAL ROS: No: Anxiety, Behavioral Disorder, Concentration difficultie, Decreased libido, Depression, Disorientation, Hallucinations, Hostility, Irritablity, Memory difficulties, Mood Swings, Obsessive thoughts, Physical abuse, Sexual abuse, Sleep disturbances, Suicidal ideation, Other Eyes: No Blurry vision, No Decreased vision, No Double vision, No Dry eyes, No Excessive tearing, No Eye Pain, No Itchy Eyes, No Loss of vision, No Photophobia, No Scotomata, No Uses contacts, No Uses glasses, No Other HEENT: No: Heacaches, Visual Changes, Hearing change, Nasal congestion, Nasal discharge, Oral lesions, Sinus pain, Sore Throat, Epistaxis, Sneezing, Snoring, Tinnitus, Vertigo, Vocal changes, Other ALLERGY AND IMMUNOLOGY: No: Hives, Insect Bite Sensitivity, Itchy/Watery Eyes, Nasal Congestion, Post Nasal Drip, Seasonal Allergies, Other Respiratory: No: Cough, Hemoptysis, Orthopnea, Pleuritic Pain, Shortness of breath, SOB with excertion, Sputum Changes, Stridor, Tachypnea, Wheezing, Other Cardiovascular: No Chest Pain, No Palpitations, No Orthopnea, No Paroxysmal Noc. Dyspnea, No Edema, No Lt Headedness, No Other Gastrointestinal: Yes Nausea Musculoskeletal: No Gait Disturbance, No Joint Pain, No Joint Stiffness, No Joint Swelling, No Muscle Pain, No Muscular Weakness, No Pain In:, No Swelling In:, No Other Physical Exam Physical Exam GEN: NAD HEENT: Atraumatic, PERRL LUNGS: CTAB HEART: RRR ABD: NABS, S/ND/NT EXTREMITY: No edema SKIN: No rashes, no jaundice NEURO/PSYCH: A & O 3 General: Alert, Oriented X3, Cooperative, No acute distress HEENT: Atraumatic, PERRLA, EOMI, Mucous membr. moist/pink Lungs: Clear to auscultation, Normal air movement Heart: RRR Breasts: Not examined Rectal Exam: not examined PELVIC: Examination not indicated Extremities: No cyanosis Skin: No breakdown, No significant lesion Neuro: Normal speech, Cranial nerves 3-12 NL Psych/Mental Status: Mental status NL, Mood NL Vitals Vitals Vital Signs Date Time Temp Pulse Resp B/P (MAP) Pulse Ox O2 Delivery O2 Flow Rate FiO2 04/10/20 08:04 Room Air 04/10/20 07:25 2.0 04/10/20 07:00 100.3 98 17 119/65 (83) 98 100.3 Labs Labs Laboratory Tests Test 04/09/20 10:27 04/09/20 16:17 04/09/20 17:24 Glucose (Fingerstick) 113 mg/dL (70-99) 196 mg/dL (70-99) 210 mg/dL (70-99) Laboratory Tests Test 04/09/20 16:17 04/09/20 17:24 Glucose (Fingerstick) 196 mg/dL (70-99) 210 mg/dL (70-99) Images Images . PATIENT: SHERRY OHARA MACCOUNT: [id number] : 1945 LOCATION: ER AGE: 74 SEX: F EXAM STATUS: REG ER ORD. PHYSICIAN: MOLLY TEJADA APRN REASON: rectal bleeding PROCEDURE: CT ABD PELV W/ IV CONTRST ONLY PQRS Compliance Statement: One or more of the following individualized dose reduction techniques were utilized for this examination: 1. Automated exposure control 2. Adjustment of the mA and/or kV according to patient size 3. Use of iterative reconstruction technique CT ABD PELV W/ IV CONTRST ONLY Clinical Indication: Reason: rectal bleeding Comparison: None. Technique: Helical CT imaging of the abdomen and pelvis is performed after 75 cc of Omnipaque 300 IV contrast. Oral contrast not administered. Findings: Incompletely imaged there is a large hiatal hernia containing most of the stomach, transverse colon, and the pancreas. Cardiac size is normal. Coronary artery disease is seen. There is compressive atelectasis in the lung bases adjacent to the hiatal hernia. Common bile duct is mildly dilated but tapers distally and is probably normal for this patient. Cholecystectomy. The liver, spleen, and adrenal glands are normal. Mild atherosclerotic calcification of the abdominal aorta, no aneurysm. Kidneys enhance symmetrically, no hydronephrosis. There is no dilated small bowel. Much of the small bowel is air-filled. Appendix is not seen, no secondary signs of appendicitis. There is descending colon diverticulosis. No colon wall thickening is appreciated. No abdominal adenopathy or free fluid. Atrophic uterus. Vaginal pessary is noted. The urinary bladder is normal. There are moderate bilateral fat-containing inguinal hernias. Multilevel disc space narrowing and vacuum disc phenomenon of the thoracolumbar spine. No acute fracture is seen. IMPRESSION: 1. No acute abdominal or pelvic abnormality. 2. Descending colon diverticulosis. 3. Large hiatal hernia contains stomach, transverse colon, and pancreas. Electronically signed by: Lucas Soriano MD (03/01/2020 1:38 PM) [id number] DICTATED and SIGNED BY: LUCAS SORIANO MD DATE: 03/01/20 1338 02 Diagnosis: Gastric biopsies, antrum: - Chronic gastritis, mild. (JPM:jair; 03/05/2020) S 03/05/2020 1049 Local . 02 Comment: Sections of the gastric biopsy reveal segments of gastric fundic and antral/fundic transition mucosa showing congestion and mild chronic inflammation. A properly controlled immunoperoxidase stain for Helicobacter is negative for Helicobacter organisms. There is no evidence of malignancy. (JPM:jair; 03/05/2020) . Special stain performed: Immunoperoxidase stain for Helicobacter on A1. . 02 Electronically signed: . Andres Rodríguez MD, Pathologist NPI- [id number] . 01 Gross description: . The specimen is received in formalin, labeled "Sherry Jean, antral biopsy". Received are three segments of pale diamond soft tissue ranging in size from 0.2 to 0.3 cm in maximum dimensions. The specimen is submitted entirely in cassette A1. (CAA; 03/04/2020) QAC/QAC 03/04/2020 1341 Local . 02 Pathologist provided ICD-10: K29.50 VTE Prophylaxis Ordered VTE Prophylaxis Devices: No VTE Pharmacological Prophylaxi: Contraindicated Assessment/Plan Assessment/Plan impression Large hiatal hernia contains stomach, transverse colon, and pancreas CRC screen - none Diverticulosis - noted on CT S/p cholecystectomy NSAID use HYPERGLYCEMIA chronic gastritis POST OP plan Laparoscopic repair of massive paraesophageal hernia with Emelina fundoplication ACCUCHECKS A1C PAIN CONTROL PT/OT Justifications for Admission Other Justification AMA MYERS MD Apr 10, 2020 10:29
[2020-04-10] MEDS ORDERED: DEXTROSE 50% 25 GM / 50ML DISP.SYRIN. IV PRN (10:45)
[2020-04-10 11:00] VITALS: BP 106/55
[2020-04-10 11:40] LABS: BASO % 0 % (0-3); EOS % 0 % (0-3); HEMATOCRIT 37.6 % (36.0-47.0); HEMOGLOBIN 12.4 g/dL (12.0-15.5); LYMPH % 9 % (24-48); MEAN CORPUSCULAR HEMOGLOBIN 33 pg (25-35); MEAN CORPUSCULAR HGB CONC 33 g/dL (31-37); MEAN CORPUSCULAR VOLUME 101 fL (79-100); MONO # 0.9 x10^3/uL (0.0-1.1); MONO % 9 % (0-9); NEUT # 8.7 x10^3/uL (1.8-7.7); NEUT % 82 % (31-73); PLATELET COUNT 238 x10^3/uL (140-400); RED BLOOD COUNT 3.74 x10^6/uL (3.50-5.40); RED CELL DISTRIBUTION WIDTH 12.6 % (11.5-14.5); WHITE BLOOD COUNT 10.6 x10^3/uL (4.0-11.0)
[2020-04-10 12:30] LABS: ALBUMIN 2.9 g/dL (3.4-5.0); ALBUMIN/GLOBULIN RATIO 0.9 (1.0-1.7); CALCIUM 8.1 mg/dL (8.5-10.1); CREATININE 0.8 mg/dL (0.6-1.0); GFR 69.9; POTASSIUM 4.4 mmol/L (3.5-5.1); TOTAL BILIRUBIN 0.6 mg/dL (0.2-1.0)
[2020-04-10] MEDS: INSULIN LISPRO 300 UNITS/3 ML VIAL. SQ SCH ×2 (13:17→16:52)
[2020-04-10 15:00] VITALS: BP 106/58
[2020-04-10] MEDS: IV NORMAL SALINE 1000ML BAG 1,000 ML IV SCH (16:30)
[2020-04-10 19:20] VITALS: BP 101/53
[2020-04-10] MEDS: diphenhydrAMINE 50 MG/ML VIAL IVP PRN (21:44)
[2020-04-10 23:00] VITALS: BP 109/52
[2020-04-11 00:10] LABS: HEMOGLOBIN A1C 5.4 % (4.8-5.6)
[2020-04-11] MEDS: HYDROmorphone 2 MG/ML VIAL IV PRN ×2 (02:59→13:22)
[2020-04-11 03:08] VITALS: BP 113/66
[2020-04-11] MEDS: IV 1/2 NORMAL SALINE 1,000 ML IV SCH ×2 (06:00→16:35)
[2020-04-11] MEDS: PANTOPRAZOLE 40 MG TABLET.DR. PO SCH (06:28)
[2020-04-11 07:00] VITALS: BP 126/71
[2020-04-11] MEDS: INSULIN LISPRO 300 UNITS/3 ML VIAL. SQ SCH ×3 (08:00→18:01)
[2020-04-11 08:27] LABS: BASO % 0 % (0-3); EOS % 0 % (0-3); HEMATOCRIT 33.9 % (36.0-47.0); HEMOGLOBIN 11.4 g/dL (12.0-15.5); LYMPH # 0.9 x10^3/uL (1.0-4.8); LYMPH % 8 % (24-48); MEAN CORPUSCULAR HEMOGLOBIN 33 pg (25-35); MEAN CORPUSCULAR HGB CONC 34 g/dL (31-37); MEAN CORPUSCULAR VOLUME 99 fL (79-100); MONO % 9 % (0-9); NEUT # 9.5 x10^3/uL (1.8-7.7); NEUT % 83 % (31-73); PLATELET COUNT 204 x10^3/uL (140-400); RED BLOOD COUNT 3.41 x10^6/uL (3.50-5.40); RED CELL DISTRIBUTION WIDTH 12.4 % (11.5-14.5); WHITE BLOOD COUNT 11.4 x10^3/uL (4.0-11.0)
[2020-04-11 08:35] LABS: CALCIUM 8.2 mg/dL (8.5-10.1); CREATININE 0.5 mg/dL (0.6-1.0); GFR 120.3; POTASSIUM 4.2 mmol/L (3.5-5.1)
--- NOTE | 2020-04-11 08:51 | PDOC ---
SURGICAL PROGRESS NOTE DATE: 04/11/20 TIME: 08:50 Subjective Patient doing well tolerating clear liquid diet minimal pain Vital Signs Vital Signs Date Time Temp Pulse Resp B/P (MAP) Pulse Ox O2 Delivery O2 Flow Rate FiO2 04/11/20 07:00 98.2 91 18 126/71 (89) 87 98.2 04/11/20 03:30 Nasal Cannula 2.0 I&O Intake and Output 04/11/20 07:00 Intake Total 1440 ml Balance 1440 ml Intake Oral 1440 ml # Voids 2 PATIENT HAS A HU: No General: Alert, Oriented X3, Cooperative, mild distress Abdomen: Normal bowel sounds, Soft, Other (Mild incisional tenderness wounds clean dry and intact) Labs Laboratory Tests Test 04/09/20 10:27 04/09/20 16:17 04/09/20 17:24 04/10/20 11:27 Glucose (Fingerstick) 113 mg/dL (70-99) 196 mg/dL (70-99) 210 mg/dL (70-99) White Blood Count 10.6 x10^3/uL (4.0-11.0) Red Blood Count 3.74 x10^6/uL (3.50-5.40) Hemoglobin 12.4 g/dL (12.0-15.5) Hematocrit 37.6 % (36.0-47.0) Mean Corpuscular Volume 101 fL (79-100) Mean Corpuscular Hemoglobin 33 pg (25-35) Mean Corpuscular Hemoglobin Concent 33 g/dL (31-37) Red Cell Distribution Width 12.6 % (11.5-14.5) Platelet Count 238 x10^3/uL (140-400) Neutrophils (%) (Auto) 82 % (31-73) Lymphocytes (%) (Auto) 9 % (24-48) Monocytes (%) (Auto) 9 % (0-9) Eosinophils (%) (Auto) 0 % (0-3) Basophils (%) (Auto) 0 % (0-3) Neutrophils # (Auto) 8.7 x10^3/uL (1.8-7.7) Lymphocytes # (Auto) 1.0 x10^3/uL (1.0-4.8) Monocytes # (Auto) 0.9 x10^3/uL (0.0-1.1) Eosinophils # (Auto) 0.0 x10^3/uL (0.0-0.7) Basophils # (Auto) 0.0 x10^3/uL (0.0-0.2) Sodium Level 136 mmol/L (136-145) Potassium Level 4.4 mmol/L (3.5-5.1) Chloride Level 101 mmol/L (98-107) Carbon Dioxide Level 26 mmol/L (21-32) Anion Gap 9 (6-14) Blood Urea Nitrogen 11 mg/dL (7-20) Creatinine 0.8 mg/dL (0.6-1.0) Estimated GFR (Cockcroft-Gault) 69.9 BUN/Creatinine Ratio 14 (6-20) Glucose Level 173 mg/dL (70-99) Hemoglobin A1c 5.4 % (4.8-5.6) Calcium Level 8.1 mg/dL (8.5-10.1) Total Bilirubin 0.6 mg/dL (0.2-1.0) Aspartate Amino Transf (AST/SGOT) 243 U/L (15-37) Alanine Aminotransferase (ALT/SGPT) 172 U/L (14-59) Alkaline Phosphatase 43 U/L (46-116) Total Protein 6.0 g/dL (6.4-8.2) Albumin 2.9 g/dL (3.4-5.0) Albumin/Globulin Ratio 0.9 (1.0-1.7) Test 04/10/20 11:34 04/10/20 16:38 04/10/20 20:48 04/11/20 07:14 Glucose (Fingerstick) 178 mg/dL (70-99) 127 mg/dL (70-99) 149 mg/dL (70-99) 137 mg/dL (70-99) Test 04/11/20 07:55 White Blood Count 11.4 x10^3/uL (4.0-11.0) Red Blood Count 3.41 x10^6/uL (3.50-5.40) Hemoglobin 11.4 g/dL (12.0-15.5) Hematocrit 33.9 % (36.0-47.0) Mean Corpuscular Volume 99 fL (79-100) Mean Corpuscular Hemoglobin 33 pg (25-35) Mean Corpuscular Hemoglobin Concent 34 g/dL (31-37) Red Cell Distribution Width 12.4 % (11.5-14.5) Platelet Count 204 x10^3/uL (140-400) Neutrophils (%) (Auto) 83 % (31-73) Lymphocytes (%) (Auto) 8 % (24-48) Monocytes (%) (Auto) 9 % (0-9) Eosinophils (%) (Auto) 0 % (0-3) Basophils (%) (Auto) 0 % (0-3) Neutrophils # (Auto) 9.5 x10^3/uL (1.8-7.7) Lymphocytes # (Auto) 0.9 x10^3/uL (1.0-4.8) Monocytes # (Auto) 1.0 x10^3/uL (0.0-1.1) Eosinophils # (Auto) 0.0 x10^3/uL (0.0-0.7) Basophils # (Auto) 0.0 x10^3/uL (0.0-0.2) Laboratory Tests Test 04/10/20 11:27 04/10/20 11:34 04/10/20 16:38 04/10/20 20:48 White Blood Count 10.6 x10^3/uL (4.0-11.0) Red Blood Count 3.74 x10^6/uL (3.50-5.40) Hemoglobin 12.4 g/dL (12.0-15.5) Hematocrit 37.6 % (36.0-47.0) Mean Corpuscular Volume 101 fL (79-100) Mean Corpuscular Hemoglobin 33 pg (25-35) Mean Corpuscular Hemoglobin Concent 33 g/dL (31-37) Red Cell Distribution Width 12.6 % (11.5-14.5) Platelet Count 238 x10^3/uL (140-400) Neutrophils (%) (Auto) 82 % (31-73) Lymphocytes (%) (Auto) 9 % (24-48) Monocytes (%) (Auto) 9 % (0-9) Eosinophils (%) (Auto) 0 % (0-3) Basophils (%) (Auto) 0 % (0-3) Neutrophils # (Auto) 8.7 x10^3/uL (1.8-7.7) Lymphocytes # (Auto) 1.0 x10^3/uL (1.0-4.8) Monocytes # (Auto) 0.9 x10^3/uL (0.0-1.1) Eosinophils # (Auto) 0.0 x10^3/uL (0.0-0.7) Basophils # (Auto) 0.0 x10^3/uL (0.0-0.2) Sodium Level 136 mmol/L (136-145) Potassium Level 4.4 mmol/L (3.5-5.1) Chloride Level 101 mmol/L (98-107) Carbon Dioxide Level 26 mmol/L (21-32) Anion Gap 9 (6-14) Blood Urea Nitrogen 11 mg/dL (7-20) Creatinine 0.8 mg/dL (0.6-1.0) Estimated GFR (Cockcroft-Gault) 69.9 BUN/Creatinine Ratio 14 (6-20) Glucose Level 173 mg/dL (70-99) Hemoglobin A1c 5.4 % (4.8-5.6) Calcium Level 8.1 mg/dL (8.5-10.1) Total Bilirubin 0.6 mg/dL (0.2-1.0) Aspartate Amino Transf (AST/SGOT) 243 U/L (15-37) Alanine Aminotransferase (ALT/SGPT) 172 U/L (14-59) Alkaline Phosphatase 43 U/L (46-116) Total Protein 6.0 g/dL (6.4-8.2) Albumin 2.9 g/dL (3.4-5.0) Albumin/Globulin Ratio 0.9 (1.0-1.7) Glucose (Fingerstick) 178 mg/dL (70-99) 127 mg/dL (70-99) 149 mg/dL (70-99) Test 04/11/20 07:14 04/11/20 07:55 Glucose (Fingerstick) 137 mg/dL (70-99) White Blood Count 11.4 x10^3/uL (4.0-11.0) Red Blood Count 3.41 x10^6/uL (3.50-5.40) Hemoglobin 11.4 g/dL (12.0-15.5) Hematocrit 33.9 % (36.0-47.0) Mean Corpuscular Volume 99 fL (79-100) Mean Corpuscular Hemoglobin 33 pg (25-35) Mean Corpuscular Hemoglobin Concent 34 g/dL (31-37) Red Cell Distribution Width 12.4 % (11.5-14.5) Platelet Count 204 x10^3/uL (140-400) Neutrophils (%) (Auto) 83 % (31-73) Lymphocytes (%) (Auto) 8 % (24-48) Monocytes (%) (Auto) 9 % (0-9) Eosinophils (%) (Auto) 0 % (0-3) Basophils (%) (Auto) 0 % (0-3) Neutrophils # (Auto) 9.5 x10^3/uL (1.8-7.7) Lymphocytes # (Auto) 0.9 x10^3/uL (1.0-4.8) Monocytes # (Auto) 1.0 x10^3/uL (0.0-1.1) Eosinophils # (Auto) 0.0 x10^3/uL (0.0-0.7) Basophils # (Auto) 0.0 x10^3/uL (0.0-0.2) Assessment/Plan Status post Emelina fundoplication for large paraesophageal hernia appears to be doing well Potentially home tomorrow Justicifation of Admission Dx: Justifications for Admission: Justification of Admission Dx: Yes AMA SANTOS MD Apr 11, 2020 08:51
[2020-04-11] MEDS: DICLOFENAC SODIUM 1% TOPICAL GEL 100GM TUBE. TP SCH ×4 (08:56→20:57)
[2020-04-11 10:48] VITALS: BP 126/68
--- NOTE | 2020-04-11 10:53 | PDOC ---
PROGRESS NOTES Date of Service: DATE: 04/11/20 TIME: 10:52 Chief Complaint Chief Complaint VTE Prophylaxis Ordered VTE Prophylaxis Devices: No VTE Pharmacological Prophylaxi: Contraindicated Assessment/Plan Assessment/Plan impression Large hiatal hernia contains stomach, transverse colon, and pancreas CRC screen - none Diverticulosis - noted on CT S/p cholecystectomy NSAID use HYPERGLYCEMIA chronic gastritis POST OP Status post Emelina fundoplication for large paraesophageal hernia hopefully home tomorrow plan Laparoscopic repair of massive paraesophageal hernia with Emelina fundoplication ACCUCHECKS A1C PAIN CONTROL PT/OT Justifications for Admission Other Justification History of Present Illness History of Present Illness Identification/Chief Complaint Chief Complaint 74 year old Kazakh-speaking female patient with a history of acid reflux, anxiety, ASKED to see for hyperglycemia, post-op Past Medical History Past Medical History Past Medical History Cardiovascular: HTN, Hyperlipidemia Musculoskeletal: Osteoarthritis Family History Family History: Hypertension Social History Smoke: No ALCOHOL: none Drugs: None Operative Note Operative Note Operative Note Operative Note Preoperative Diagnosis: Massive paraesophageal hernia with gastroesophageal reflux disease Postoperative Diagnosis: Same Procedure: Laparoscopic repair of massive paraesophageal hernia with Emelina fundoplication Surgeon: Jaya Schwartz.: Dr. Torres Anesthesia: Gen. Estimated Blood Loss: 50 mL Specimen: None Drains: None Complications: None Indications: The patient is a 74-year-old female who was referred due to a massive paraesophageal hernia Cardiovascular: HTN, Hyperlipidemia GI: GERD, GI bleed, Peptic Ulcer disease Musculoskeletal: Osteoarthritis Past Surgical History Past Surgical History: No pertinent history Family History Family History: Hypertension Social History Smoke: No ALCOHOL: none Drugs: None Vitals Vitals Vital Signs Date Time Temp Pulse Resp B/P (MAP) Pulse Ox O2 Delivery O2 Flow Rate FiO2 04/11/20 10:48 97.5 96 18 126/68 (87) 90 97.5 04/11/20 03:30 Nasal Cannula 2.0 Physical Exam Physical Exam Physical Exam Physical Exam GEN: NAD HEENT: Atraumatic, PERRL LUNGS: CTAB HEART: RRR ABD: NABS, S/ND/NT EXTREMITY: No edema SKIN: No rashes, no jaundice NEURO/PSYCH: A & O 3 General: Alert, Oriented X3, Cooperative, No acute distress HEENT: Atraumatic, PERRLA, EOMI, Mucous membr. moist/pink Lungs: Clear to auscultation, Normal air movement Heart: RRR Breasts: Not examined Rectal Exam: not examined PELVIC: Examination not indicated Extremities: No cyanosis Skin: No breakdown, No significant lesion Neuro: Normal speech, Cranial nerves 3-12 NL Psych/Mental Status: Mental status NL, Mood NL General: Alert, Oriented X3, Cooperative, No acute distress Heart: Regular rate, Normal S1 Abdomen: Normal bowel sounds, Soft, Other (Mild incisional tenderness wounds clean dry and intact) Extremities: No cyanosis Skin: No breakdown, No significant lesion Labs LABS Laboratory Tests Test 04/10/20 11:27 04/10/20 11:34 04/10/20 16:38 04/10/20 20:48 White Blood Count 10.6 x10^3/uL (4.0-11.0) Red Blood Count 3.74 x10^6/uL (3.50-5.40) Hemoglobin 12.4 g/dL (12.0-15.5) Hematocrit 37.6 % (36.0-47.0) Mean Corpuscular Volume 101 fL (79-100) Mean Corpuscular Hemoglobin 33 pg (25-35) Mean Corpuscular Hemoglobin Concent 33 g/dL (31-37) Red Cell Distribution Width 12.6 % (11.5-14.5) Platelet Count 238 x10^3/uL (140-400) Neutrophils (%) (Auto) 82 % (31-73) Lymphocytes (%) (Auto) 9 % (24-48) Monocytes (%) (Auto) 9 % (0-9) Eosinophils (%) (Auto) 0 % (0-3) Basophils (%) (Auto) 0 % (0-3) Neutrophils # (Auto) 8.7 x10^3/uL (1.8-7.7) Lymphocytes # (Auto) 1.0 x10^3/uL (1.0-4.8) Monocytes # (Auto) 0.9 x10^3/uL (0.0-1.1) Eosinophils # (Auto) 0.0 x10^3/uL (0.0-0.7) Basophils # (Auto) 0.0 x10^3/uL (0.0-0.2) Sodium Level 136 mmol/L (136-145) Potassium Level 4.4 mmol/L (3.5-5.1) Chloride Level 101 mmol/L (98-107) Carbon Dioxide Level 26 mmol/L (21-32) Anion Gap 9 (6-14) Blood Urea Nitrogen 11 mg/dL (7-20) Creatinine 0.8 mg/dL (0.6-1.0) Estimated GFR (Cockcroft-Gault) 69.9 BUN/Creatinine Ratio 14 (6-20) Glucose Level 173 mg/dL (70-99) Hemoglobin A1c 5.4 % (4.8-5.6) Calcium Level 8.1 mg/dL (8.5-10.1) Total Bilirubin 0.6 mg/dL (0.2-1.0) Aspartate Amino Transf (AST/SGOT) 243 U/L (15-37) Alanine Aminotransferase (ALT/SGPT) 172 U/L (14-59) Alkaline Phosphatase 43 U/L (46-116) Total Protein 6.0 g/dL (6.4-8.2) Albumin 2.9 g/dL (3.4-5.0) Albumin/Globulin Ratio 0.9 (1.0-1.7) Glucose (Fingerstick) 178 mg/dL (70-99) 127 mg/dL (70-99) 149 mg/dL (70-99) Test 04/11/20 07:14 04/11/20 07:45 04/11/20 07:55 Glucose (Fingerstick) 137 mg/dL (70-99) Sodium Level 128 mmol/L (136-145) Potassium Level 4.2 mmol/L (3.5-5.1) Chloride Level 94 mmol/L (98-107) Carbon Dioxide Level 28 mmol/L (21-32) Anion Gap 6 (6-14) Blood Urea Nitrogen 10 mg/dL (7-20) Creatinine 0.5 mg/dL (0.6-1.0) Estimated GFR (Cockcroft-Gault) 120.3 Glucose Level 133 mg/dL (70-99) Calcium Level 8.2 mg/dL (8.5-10.1) White Blood Count 11.4 x10^3/uL (4.0-11.0) Red Blood Count 3.41 x10^6/uL (3.50-5.40) Hemoglobin 11.4 g/dL (12.0-15.5) Hematocrit 33.9 % (36.0-47.0) Mean Corpuscular Volume 99 fL (79-100) Mean Corpuscular Hemoglobin 33 pg (25-35) Mean Corpuscular Hemoglobin Concent 34 g/dL (31-37) Red Cell Distribution Width 12.4 % (11.5-14.5) Platelet Count 204 x10^3/uL (140-400) Neutrophils (%) (Auto) 83 % (31-73) Lymphocytes (%) (Auto) 8 % (24-48) Monocytes (%) (Auto) 9 % (0-9) Eosinophils (%) (Auto) 0 % (0-3) Basophils (%) (Auto) 0 % (0-3) Neutrophils # (Auto) 9.5 x10^3/uL (1.8-7.7) Lymphocytes # (Auto) 0.9 x10^3/uL (1.0-4.8) Monocytes # (Auto) 1.0 x10^3/uL (0.0-1.1) Eosinophils # (Auto) 0.0 x10^3/uL (0.0-0.7) Basophils # (Auto) 0.0 x10^3/uL (0.0-0.2) Comment Review of Relevant I have reviewed the following items rachana (where applicable) has been applied. Labs Laboratory Tests Test 04/09/20 16:17 04/09/20 17:24 04/10/20 11:27 04/10/20 11:34 Glucose (Fingerstick) 196 mg/dL (70-99) 210 mg/dL (70-99) 178 mg/dL (70-99) White Blood Count 10.6 x10^3/uL (4.0-11.0) Red Blood Count 3.74 x10^6/uL (3.50-5.40) Hemoglobin 12.4 g/dL (12.0-15.5) Hematocrit 37.6 % (36.0-47.0) Mean Corpuscular Volume 101 fL (79-100) Mean Corpuscular Hemoglobin 33 pg (25-35) Mean Corpuscular Hemoglobin Concent 33 g/dL (31-37) Red Cell Distribution Width 12.6 % (11.5-14.5) Platelet Count 238 x10^3/uL (140-400) Neutrophils (%) (Auto) 82 % (31-73) Lymphocytes (%) (Auto) 9 % (24-48) Monocytes (%) (Auto) 9 % (0-9) Eosinophils (%) (Auto) 0 % (0-3) Basophils (%) (Auto) 0 % (0-3) Neutrophils # (Auto) 8.7 x10^3/uL (1.8-7.7) Lymphocytes # (Auto) 1.0 x10^3/uL (1.0-4.8) Monocytes # (Auto) 0.9 x10^3/uL (0.0-1.1) Eosinophils # (Auto) 0.0 x10^3/uL (0.0-0.7) Basophils # (Auto) 0.0 x10^3/uL (0.0-0.2) Sodium Level 136 mmol/L (136-145) Potassium Level 4.4 mmol/L (3.5-5.1) Chloride Level 101 mmol/L (98-107) Carbon Dioxide Level 26 mmol/L (21-32) Anion Gap 9 (6-14) Blood Urea Nitrogen 11 mg/dL (7-20) Creatinine 0.8 mg/dL (0.6-1.0) Estimated GFR (Cockcroft-Gault) 69.9 BUN/Creatinine Ratio 14 (6-20) Glucose Level 173 mg/dL (70-99) Hemoglobin A1c 5.4 % (4.8-5.6) Calcium Level 8.1 mg/dL (8.5-10.1) Total Bilirubin 0.6 mg/dL (0.2-1.0) Aspartate Amino Transf (AST/SGOT) 243 U/L (15-37) Alanine Aminotransferase (ALT/SGPT) 172 U/L (14-59) Alkaline Phosphatase 43 U/L (46-116) Total Protein 6.0 g/dL (6.4-8.2) Albumin 2.9 g/dL (3.4-5.0) Albumin/Globulin Ratio 0.9 (1.0-1.7) Test 12/18/20 16:38 04/10/20 20:48 04/11/20 07:14 04/11/20 07:45 Glucose (Fingerstick) 127 mg/dL (70-99) 149 mg/dL (70-99) 137 mg/dL (70-99) Sodium Level 128 mmol/L (136-145) Potassium Level 4.2 mmol/L (3.5-5.1) Chloride Level 94 mmol/L (98-107) Carbon Dioxide Level 28 mmol/L (21-32) Anion Gap 6 (6-14) Blood Urea Nitrogen 10 mg/dL (7-20) Creatinine 0.5 mg/dL (0.6-1.0) Estimated GFR (Cockcroft-Gault) 120.3 Glucose Level 133 mg/dL (70-99) Calcium Level 8.2 mg/dL (8.5-10.1) Test 04/11/20 07:55 White Blood Count 11.4 x10^3/uL (4.0-11.0) Red Blood Count 3.41 x10^6/uL (3.50-5.40) Hemoglobin 11.4 g/dL (12.0-15.5) Hematocrit 33.9 % (36.0-47.0) Mean Corpuscular Volume 99 fL (79-100) Mean Corpuscular Hemoglobin 33 pg (25-35) Mean Corpuscular Hemoglobin Concent 34 g/dL (31-37) Red Cell Distribution Width 12.4 % (11.5-14.5) Platelet Count 204 x10^3/uL (140-400) Neutrophils (%) (Auto) 83 % (31-73) Lymphocytes (%) (Auto) 8 % (24-48) Monocytes (%) (Auto) 9 % (0-9) Eosinophils (%) (Auto) 0 % (0-3) Basophils (%) (Auto) 0 % (0-3) Neutrophils # (Auto) 9.5 x10^3/uL (1.8-7.7) Lymphocytes # (Auto) 0.9 x10^3/uL (1.0-4.8) Monocytes # (Auto) 1.0 x10^3/uL (0.0-1.1) Eosinophils # (Auto) 0.0 x10^3/uL (0.0-0.7) Basophils # (Auto) 0.0 x10^3/uL (0.0-0.2) Laboratory Tests Test 04/10/20 11:27 04/10/20 11:34 04/10/20 16:38 04/10/20 20:48 White Blood Count 10.6 x10^3/uL (4.0-11.0) Red Blood Count 3.74 x10^6/uL (3.50-5.40) Hemoglobin 12.4 g/dL (12.0-15.5) Hematocrit 37.6 % (36.0-47.0) Mean Corpuscular Volume 101 fL (79-100) Mean Corpuscular Hemoglobin 33 pg (25-35) Mean Corpuscular Hemoglobin Concent 33 g/dL (31-37) Red Cell Distribution Width 12.6 % (11.5-14.5) Platelet Count 238 x10^3/uL (140-400) Neutrophils (%) (Auto) 82 % (31-73) Lymphocytes (%) (Auto) 9 % (24-48) Monocytes (%) (Auto) 9 % (0-9) Eosinophils (%) (Auto) 0 % (0-3) Basophils (%) (Auto) 0 % (0-3) Neutrophils # (Auto) 8.7 x10^3/uL (1.8-7.7) Lymphocytes # (Auto) 1.0 x10^3/uL (1.0-4.8) Monocytes # (Auto) 0.9 x10^3/uL (0.0-1.1) Eosinophils # (Auto) 0.0 x10^3/uL (0.0-0.7) Basophils # (Auto) 0.0 x10^3/uL (0.0-0.2) Sodium Level 136 mmol/L (136-145) Potassium Level 4.4 mmol/L (3.5-5.1) Chloride Level 101 mmol/L (98-107) Carbon Dioxide Level 26 mmol/L (21-32) Anion Gap 9 (6-14) Blood Urea Nitrogen 11 mg/dL (7-20) Creatinine 0.8 mg/dL (0.6-1.0) Estimated GFR (Cockcroft-Gault) 69.9 BUN/Creatinine Ratio 14 (6-20) Glucose Level 173 mg/dL (70-99) Hemoglobin A1c 5.4 % (4.8-5.6) Calcium Level 8.1 mg/dL (8.5-10.1) Total Bilirubin 0.6 mg/dL (0.2-1.0) Aspartate Amino Transf (AST/SGOT) 243 U/L (15-37) Alanine Aminotransferase (ALT/SGPT) 172 U/L (14-59) Alkaline Phosphatase 43 U/L (46-116) Total Protein 6.0 g/dL (6.4-8.2) Albumin 2.9 g/dL (3.4-5.0) Albumin/Globulin Ratio 0.9 (1.0-1.7) Glucose (Fingerstick) 178 mg/dL (70-99) 127 mg/dL (70-99) 149 mg/dL (70-99) Test 04/11/20 07:14 04/11/20 07:45 04/11/20 07:55 Glucose (Fingerstick) 137 mg/dL (70-99) Sodium Level 128 mmol/L (136-145) Potassium Level 4.2 mmol/L (3.5-5.1) Chloride Level 94 mmol/L (98-107) Carbon Dioxide Level 28 mmol/L (21-32) Anion Gap 6 (6-14) Blood Urea Nitrogen 10 mg/dL (7-20) Creatinine 0.5 mg/dL (0.6-1.0) Estimated GFR (Cockcroft-Gault) 120.3 Glucose Level 133 mg/dL (70-99) Calcium Level 8.2 mg/dL (8.5-10.1) White Blood Count 11.4 x10^3/uL (4.0-11.0) Red Blood Count 3.41 x10^6/uL (3.50-5.40) Hemoglobin 11.4 g/dL (12.0-15.5) Hematocrit 33.9 % (36.0-47.0) Mean Corpuscular Volume 99 fL (79-100) Mean Corpuscular Hemoglobin 33 pg (25-35) Mean Corpuscular Hemoglobin Concent 34 g/dL (31-37) Red Cell Distribution Width 12.4 % (11.5-14.5) Platelet Count 204 x10^3/uL (140-400) Neutrophils (%) (Auto) 83 % (31-73) Lymphocytes (%) (Auto) 8 % (24-48) Monocytes (%) (Auto) 9 % (0-9) Eosinophils (%) (Auto) 0 % (0-3) Basophils (%) (Auto) 0 % (0-3) Neutrophils # (Auto) 9.5 x10^3/uL (1.8-7.7) Lymphocytes # (Auto) 0.9 x10^3/uL (1.0-4.8) Monocytes # (Auto) 1.0 x10^3/uL (0.0-1.1) Eosinophils # (Auto) 0.0 x10^3/uL (0.0-0.7) Basophils # (Auto) 0.0 x10^3/uL (0.0-0.2) Medications Current Medications Ondansetron HCl (Zofran) 4 mg PRN Q6HRS PRN IVP NAUSEA/VOMITING; Start 04/09/20 at 07:00; Stop 04/10/20 at 06:59; Status DC Fentanyl Citrate (Fentanyl 2ml Vial) 25 mcg PRN Q5MIN PRN IVP MILD PAIN 1-3; Start 04/09/20 at 07:00; Stop 04/10/20 at 06:59; Status DC Fentanyl Citrate (Fentanyl 2ml Vial) 50 mcg PRN Q5MIN PRN IVP MODERATE TO SEVERE PAIN Last administered on 04/09/20at 17:15; Start 04/09/20 at 07:00; Stop 04/10/20 at 06:59; Status DC Morphine Sulfate (Morphine Sulfate) 1 mg PRN Q10MIN PRN IVP SEVERE PAIN 7-10 Last administered on 04/09/20at 17:51; Start 04/09/20 at 07:00; Stop 04/10/20 at 06:59; Status DC Ringer's Solution 1,000 ml @ 30 mls/hr Q24H IV Last administered on 04/09/20at 16:32; Start 04/09/20 at 07:00; Stop 04/09/20 at 18:59; Status DC Lidocaine HCl (Xylocaine-Mpf 1% 2ml Vial) 2 ml PRN 1X PRN ID IV START; Start 04/09/20 at 07:00; Stop 04/10/20 at 06:59; Status DC Hydromorphone HCl (Dilaudid) 0.5 mg PRN Q10MIN PRN IVP SEV PAIN, Second choice; Start 04/09/20 at 07:00; Stop 04/10/20 at 06:59; Status DC Prochlorperazine Edisylate (Compazine) 5 mg PACU PRN PRN IVP NAUSEA, MRX1 Last administered on 04/09/20at 16:54; Start 04/09/20 at 07:00; Stop 04/10/20 at 06:59; Status DC Bupivacaine HCl/ Epinephrine Bitart (Sensorcain-Epi 0.5%-1:[id number] Mpf) 30 ml 1X ONCE INJ Last administered on 04/09/20at 11:49; Start 04/09/20 at 06:00; Stop 04/09/20 at 06:01; Status DC Cefazolin Sodium (Ancef) 1 gm ONCE ONCE IVP Last administered on 04/09/20at 11:20; Start 04/09/20 at 06:00; Stop 04/09/20 at 06:01; Status DC Midazolam HCl (Versed) 2 mg STK-MED ONCE .ROUTE ; Start 04/09/20 at 09:10; Stop 04/09/20 at 09:10; Status DC Fentanyl Citrate (Fentanyl 2ml Vial) 100 mcg STK-MED ONCE .ROUTE ; Start 04/09/20 at 09:10; Stop 04/09/20 at 09:11; Status DC Rocuronium Daphne (Zemuron) 50 mg STK-MED ONCE .ROUTE ; Start 04/09/20 at 09:10; Stop 04/09/20 at 09:11; Status DC Desflurane (Suprane) 90 ml STK-MED ONCE IH ; Start 04/09/20 at 09:14; Stop 04/09/20 at 09:14; Status DC Propofol (Diprivan) 200 mg STK-MED ONCE IV ; Start 04/09/20 at 09:14; Stop 04/09/20 at 09:14; Status DC Lidocaine HCl (Lidocaine Pf 2% Vial) 5 ml STK-MED ONCE .ROUTE ; Start 04/09/20 at 09:14; Stop 04/09/20 at 09:14; Status DC Ondansetron HCl (Zofran) 4 mg STK-MED ONCE .ROUTE ; Start 04/09/20 at 09:14; Stop 04/09/20 at 09:14; Status DC Famotidine (Pepcid Vial) 20 mg STK-MED ONCE .ROUTE ; Start 04/09/20 at 09:14; Stop 04/09/20 at 09:14; Status DC Dexamethasone Sodium Phosphate (Decadron) 4 mg STK-MED ONCE .ROUTE ; Start 04/09/20 at 09:14; Stop 04/09/20 at 09:14; Status DC Cellulose (Surgicel Hemostat 4x8) 1 each STK-MED ONCE .ROUTE Last administered on 04/09/20at 11:49; Start 04/09/20 at 10:00; Stop 04/09/20 at 10:01; Status DC Cellulose (Surgicel Hemostat 4x8) 1 each STK-MED ONCE .ROUTE ; Start 04/09/20 at 10:00; Stop 04/09/20 at 10:01; Status DC Phenylephrine HCl (PHENYLEPHRINE in 0.9% NACL PF) 1 mg STK-MED ONCE IV ; Start 04/09/20 at 11:13; Stop 04/09/20 at 11:13; Status DC Phenylephrine HCl (Daryl-Synephrine Inj) 10 mg STK-MED ONCE .ROUTE ; Start 04/09/20 at 11:31; Stop 04/09/20 at 11:31; Status DC Glycopyrrolate (Robinul) 1 mg STK-MED ONCE .ROUTE ; Start 04/09/20 at 12:48; Stop 04/09/20 at 12:48; Status DC Neostigmine Daphne (Neostigmine Methylsulfate) 5 mg STK-MED ONCE .ROUTE ; Start 04/09/20 at 12:48; Stop 04/09/20 at 12:48; Status DC Rocuronium Daphne (Zemuron) 50 mg STK-MED ONCE .ROUTE ; Start 04/09/20 at 14:24; Stop 04/09/20 at 14:25; Status DC Fentanyl Citrate (Fentanyl 2ml Vial) 100 mcg STK-MED ONCE .ROUTE ; Start 04/09/20 at 14:54; Stop 04/09/20 at 14:54; Status DC Desflurane (Suprane) 90 ml STK-MED ONCE IH ; Start 04/09/20 at 15:19; Stop 04/09/20 at 15:20; Status DC Cefazolin Sodium (Ancef) 1 gm 1X ONCE IVP Last administered on 04/09/20at 16:26; Start 04/09/20 at 15:10; Stop 04/09/20 at 16:25; Status DC Cefazolin Sodium (Ancef) 1 gm STK-MED ONCE IVP ; Start 04/09/20 at 16:23; Stop 04/09/20 at 16:23; Status DC Insulin Human Lispro (HumaLOG VIAL for OP,RR ONLY) 0-10 units PRN Q1HR PRN SQ PER PROTOCOL Last administered on 04/09/20at 17:28; Start 04/09/20 at 16:30; Stop 04/10/20 at 16:29; Status DC Sodium Chloride (Normal Saline Flush) 3 ml QSHIFT PRN IV AFTER MEDS AND BLOOD DRAWS; Start 04/09/20 at 16:30 Sodium Chloride 1,000 ml @ 80 mls/hr [id number] IV Last administered on 04/10/20at 05:43; Start 04/09/20 at 16:30 Naloxone HCl (Narcan) 0.4 mg PRN Q2MIN PRN IV SEE INSTRUCTIONS; Start 04/09/20 at 16:30 Sodium Chloride 1,000 ml @ 25 mls/hr Q24H IV ; Start 04/09/20 at 16:30 Hydromorphone HCl (Dilaudid) 0.2 mg PRN Q1HR PRN IV PAIN Last administered on 04/11/20at 02:59; Start 04/09/20 at 16:30 Ondansetron HCl (Zofran) 4 mg PRN Q6HRS PRN IVP NAUESA, 1ST CHOICE; Start 03/24 11/10 at 16:30 Prochlorperazine Edisylate (Compazine) 5 mg PRN Q6HRS PRN IV N/V, 2nd Choice, MR X1; Start 04/09/20 at 16:30 Prochlorperazine Edisylate (Compazine) 10 mg STK-MED ONCE .ROUTE ; Start 04/09/20 at 16:41; Stop 04/09/20 at 16:41; Status DC Fentanyl Citrate (Fentanyl 2ml Vial) 100 mcg STK-MED ONCE .ROUTE ; Start 04/09/20 at 16:41; Stop 04/09/20 at 16:41; Status DC Morphine Sulfate (Morphine Sulfate) 2 mg STK-MED ONCE .ROUTE ; Start 04/09/20 at 17:22; Stop 04/09/20 at 17:22; Status DC Diphenhydramine HCl (Benadryl) 25 mg PRN QHS PRN IVP ITCHING Last administered on 04/10/20at 21:44; Start 04/09/20 at 20:30 Diclofenac Sodium (Voltaren) 1 radha QID TP Last administered on 04/11/20at 08:56; Start 04/09/20 at 21:00 Pantoprazole Sodium (Protonix) 40 mg DAILYAC PO Last administered on 04/11/20at 06:28; Start 04/10/20 at 09:30 Acetaminophen/ Hydrocodone Bitart (Lortab 7.5-325/ 15ml Oral Solution) 15 ml PRN Q6HRS PRN PO PAIN; Start 04/10/20 at 09:45 Insulin Human Lispro (HumaLOG VIAL for OP,RR ONLY) 4 unit STK-MED ONCE SQ ; Start 04/09/20 at 16:30; Stop 04/10/20 at 10:26; Status DC Insulin Human Lispro (HumaLOG) 0-5 UNITS TIDWMEALS SQ Last administered on 04/10/20at 13:17; Start 04/10/20 at 12:00 Dextrose (Dextrose 50%-Water Syringe) 12.5 gm PRN Q15MIN PRN IV SEE COMMENTS; Start 04/10/20 at 10:45 Active Scripts Active Pantoprazole Sodium (Pantoprazole Sodium) 40 Mg Tablet.dr 40 Mg PO DAILYAC 30 Days Reported Voltaren (Diclofenac Sodium) 100 Gm Gel..gram. 1 Gm TP QID 30 Days apply to affected area(s) Clonazepam 1 Mg Tablet 1 Mg PO DAILY Vitals/I & O Vital Sign - Last 24 Hours 04/10/20 04/10/20 04/10/20 04/10/20 11:00 15:00 19:20 19:35 Temp 97.0 100.0 97.8 97.0 100.0 97.8 Pulse 89 95 99 Resp 18 16 18 18 B/P (MAP) 106/55 (72) 106/58 (74) 101/53 (69) Pulse Ox 97 91 93 O2 Delivery Nasal Cannula Room Air Room Air Room Air O2 Flow Rate 2.0 04/10/20 04/10/20 04/10/20 04/11/20 20:00 20:05 23:00 02:59 Temp 97.5 97.5 Pulse 103 Resp 18 B/P (MAP) 109/52 (71) Pulse Ox 96 O2 Delivery Nasal Cannula Nasal Cannula Nasal Cannula Nasal Cannula O2 Flow Rate 2.0 2.0 04/11/20 04/11/20 04/11/20 04/11/20 03:08 03:30 07:00 10:48 Temp 97.9 98.2 97.5 97.9 98.2 97.5 Pulse 95 91 96 Resp 20 18 18 B/P (MAP) 113/66 (82) 126/71 (89) 126/68 (87) Pulse Ox 98 87 90 O2 Delivery Nasal Cannula Nasal Cannula O2 Flow Rate 2.0 2.0 Intake and Output 04/10/20 04/10/20 04/11/20 15:00 23:00 07:00 Intake Total 720 ml 240 ml 480 ml Balance 720 ml 240 ml 480 ml Justicifation of Admission Dx: Justifications for Admission: Justification of Admission Dx: Yes AMA MYERS MD Apr 11, 2020 10:53
[2020-04-11] MEDS ORDERED: BISACODYL 10 MG SUPP.RECT. PR ONE (12:30)
[2020-04-11 14:36] VITALS: BP 138/68
[2020-04-11] MEDS: IV NORMAL SALINE 1000ML BAG 1,000 ML IV SCH (16:30)
[2020-04-11 19:00] VITALS: BP 126/69
[2020-04-11] MEDS: diphenhydrAMINE 50 MG/ML VIAL IVP PRN (21:03)
[2020-04-11 23:00] VITALS: BP 131/68
[2020-04-12 02:53] VITALS: BP 139/71
[2020-04-12 07:00] VITALS: BP 138/59
[2020-04-12] MEDS: IV 1/2 NORMAL SALINE 1,000 ML IV SCH ×2 (07:00→16:21)
[2020-04-12] MEDS: PANTOPRAZOLE 40 MG TABLET.DR. PO SCH ×2 (07:30→07:49)
[2020-04-12 07:35] LABS: BASO % 0 % (0-3); EOS % 0 % (0-3); HEMATOCRIT 34.1 % (36.0-47.0); HEMOGLOBIN 11.6 g/dL (12.0-15.5); LYMPH # 0.6 x10^3/uL (1.0-4.8); LYMPH % 7 % (24-48); MEAN CORPUSCULAR HEMOGLOBIN 34 pg (25-35); MEAN CORPUSCULAR HGB CONC 34 g/dL (31-37); MEAN CORPUSCULAR VOLUME 98 fL (79-100); MONO # 1.1 x10^3/uL (0.0-1.1); MONO % 11 % (0-9); NEUT # 7.9 x10^3/uL (1.8-7.7); NEUT % 82 % (31-73); PLATELET COUNT 207 x10^3/uL (140-400); RED BLOOD COUNT 3.46 x10^6/uL (3.50-5.40); RED CELL DISTRIBUTION WIDTH 12.2 % (11.5-14.5); WHITE BLOOD COUNT 9.6 x10^3/uL (4.0-11.0)
[2020-04-12] MEDS: INSULIN LISPRO 300 UNITS/3 ML VIAL. SQ SCH ×3 (07:37→16:21)
[2020-04-12] MEDS: DICLOFENAC SODIUM 1% TOPICAL GEL 100GM TUBE. TP SCH ×4 (07:53→21:53)
[2020-04-12 07:57] LABS: ALBUMIN 2.7 g/dL (3.4-5.0); ALBUMIN/GLOBULIN RATIO 0.8 (1.0-1.7); CALCIUM 8.5 mg/dL (8.5-10.1); CREATININE 0.5 mg/dL (0.6-1.0); GFR 120.3; POTASSIUM 3.7 mmol/L (3.5-5.1)
[2020-04-12] MEDS ORDERED: FUROSEMIDE 20 MG/2 ML VIAL. IVP ONE (08:00)
--- NOTE | 2020-04-12 08:32 | PDOC ---
SURGICAL PROGRESS NOTE DATE: 04/12/20 TIME: 08:30 Subjective Patient states she feels short of breath as well is distended. No vomiting has been having bowel movements Vital Signs Vital Signs Date Time Temp Pulse Resp B/P (MAP) Pulse Ox O2 Delivery O2 Flow Rate FiO2 04/12/20 07:00 98.4 84 138/59 (85) 96 Nasal Cannula 2.0 98.4 04/11/20 23:00 18 I&O Intake and Output 04/12/20 07:00 Output Total 350 ml Balance -350 ml Output Urine Total 350 ml # Voids 2 PATIENT HAS A HU: No General: Alert, Oriented X3, Cooperative, mild distress Abdomen: Normal bowel sounds, Soft, No tenderness Labs Laboratory Tests Test 04/10/20 11:27 04/10/20 11:34 04/10/20 16:38 04/10/20 20:48 White Blood Count 10.6 x10^3/uL (4.0-11.0) Red Blood Count 3.74 x10^6/uL (3.50-5.40) Hemoglobin 12.4 g/dL (12.0-15.5) Hematocrit 37.6 % (36.0-47.0) Mean Corpuscular Volume 101 fL (79-100) Mean Corpuscular Hemoglobin 33 pg (25-35) Mean Corpuscular Hemoglobin Concent 33 g/dL (31-37) Red Cell Distribution Width 12.6 % (11.5-14.5) Platelet Count 238 x10^3/uL (140-400) Neutrophils (%) (Auto) 82 % (31-73) Lymphocytes (%) (Auto) 9 % (24-48) Monocytes (%) (Auto) 9 % (0-9) Eosinophils (%) (Auto) 0 % (0-3) Basophils (%) (Auto) 0 % (0-3) Neutrophils # (Auto) 8.7 x10^3/uL (1.8-7.7) Lymphocytes # (Auto) 1.0 x10^3/uL (1.0-4.8) Monocytes # (Auto) 0.9 x10^3/uL (0.0-1.1) Eosinophils # (Auto) 0.0 x10^3/uL (0.0-0.7) Basophils # (Auto) 0.0 x10^3/uL (0.0-0.2) Sodium Level 136 mmol/L (136-145) Potassium Level 4.4 mmol/L (3.5-5.1) Chloride Level 101 mmol/L (98-107) Carbon Dioxide Level 26 mmol/L (21-32) Anion Gap 9 (6-14) Blood Urea Nitrogen 11 mg/dL (7-20) Creatinine 0.8 mg/dL (0.6-1.0) Estimated GFR (Cockcroft-Gault) 69.9 BUN/Creatinine Ratio 14 (6-20) Glucose Level 173 mg/dL (70-99) Hemoglobin A1c 5.4 % (4.8-5.6) Calcium Level 8.1 mg/dL (8.5-10.1) Total Bilirubin 0.6 mg/dL (0.2-1.0) Aspartate Amino Transf (AST/SGOT) 243 U/L (15-37) Alanine Aminotransferase (ALT/SGPT) 172 U/L (14-59) Alkaline Phosphatase 43 U/L (46-116) Total Protein 6.0 g/dL (6.4-8.2) Albumin 2.9 g/dL (3.4-5.0) Albumin/Globulin Ratio 0.9 (1.0-1.7) Glucose (Fingerstick) 178 mg/dL (70-99) 127 mg/dL (70-99) 149 mg/dL (70-99) Test 04/11/20 07:14 04/11/20 07:45 04/11/20 07:55 04/11/20 11:07 Glucose (Fingerstick) 137 mg/dL (70-99) 163 mg/dL (70-99) Sodium Level 128 mmol/L (136-145) Potassium Level 4.2 mmol/L (3.5-5.1) Chloride Level 94 mmol/L (98-107) Carbon Dioxide Level 28 mmol/L (21-32) Anion Gap 6 (6-14) Blood Urea Nitrogen 10 mg/dL (7-20) Creatinine 0.5 mg/dL (0.6-1.0) Estimated GFR (Cockcroft-Gault) 120.3 Glucose Level 133 mg/dL (70-99) Calcium Level 8.2 mg/dL (8.5-10.1) White Blood Count 11.4 x10^3/uL (4.0-11.0) Red Blood Count 3.41 x10^6/uL (3.50-5.40) Hemoglobin 11.4 g/dL (12.0-15.5) Hematocrit 33.9 % (36.0-47.0) Mean Corpuscular Volume 99 fL (79-100) Mean Corpuscular Hemoglobin 33 pg (25-35) Mean Corpuscular Hemoglobin Concent 34 g/dL (31-37) Red Cell Distribution Width 12.4 % (11.5-14.5) Platelet Count 204 x10^3/uL (140-400) Neutrophils (%) (Auto) 83 % (31-73) Lymphocytes (%) (Auto) 8 % (24-48) Monocytes (%) (Auto) 9 % (0-9) Eosinophils (%) (Auto) 0 % (0-3) Basophils (%) (Auto) 0 % (0-3) Neutrophils # (Auto) 9.5 x10^3/uL (1.8-7.7) Lymphocytes # (Auto) 0.9 x10^3/uL (1.0-4.8) Monocytes # (Auto) 1.0 x10^3/uL (0.0-1.1) Eosinophils # (Auto) 0.0 x10^3/uL (0.0-0.7) Basophils # (Auto) 0.0 x10^3/uL (0.0-0.2) Test 04/11/20 16:37 04/11/20 20:31 04/12/20 07:05 04/12/20 07:28 Glucose (Fingerstick) 170 mg/dL (70-99) 103 mg/dL (70-99) 118 mg/dL (70-99) White Blood Count 9.6 x10^3/uL (4.0-11.0) Red Blood Count 3.46 x10^6/uL (3.50-5.40) Hemoglobin 11.6 g/dL (12.0-15.5) Hematocrit 34.1 % (36.0-47.0) Mean Corpuscular Volume 98 fL (79-100) Mean Corpuscular Hemoglobin 34 pg (25-35) Mean Corpuscular Hemoglobin Concent 34 g/dL (31-37) Red Cell Distribution Width 12.2 % (11.5-14.5) Platelet Count 207 x10^3/uL (140-400) Neutrophils (%) (Auto) 82 % (31-73) Lymphocytes (%) (Auto) 7 % (24-48) Monocytes (%) (Auto) 11 % (0-9) Eosinophils (%) (Auto) 0 % (0-3) Basophils (%) (Auto) 0 % (0-3) Neutrophils # (Auto) 7.9 x10^3/uL (1.8-7.7) Lymphocytes # (Auto) 0.6 x10^3/uL (1.0-4.8) Monocytes # (Auto) 1.1 x10^3/uL (0.0-1.1) Eosinophils # (Auto) 0.0 x10^3/uL (0.0-0.7) Basophils # (Auto) 0.0 x10^3/uL (0.0-0.2) Sodium Level 132 mmol/L (136-145) Potassium Level 3.7 mmol/L (3.5-5.1) Chloride Level 96 mmol/L (98-107) Carbon Dioxide Level 32 mmol/L (21-32) Anion Gap 4 (6-14) Blood Urea Nitrogen 5 mg/dL (7-20) Creatinine 0.5 mg/dL (0.6-1.0) Estimated GFR (Cockcroft-Gault) 120.3 BUN/Creatinine Ratio 10 (6-20) Glucose Level 108 mg/dL (70-99) Calcium Level 8.5 mg/dL (8.5-10.1) Total Bilirubin 1.0 mg/dL (0.2-1.0) Aspartate Amino Transf (AST/SGOT) 118 U/L (15-37) Alanine Aminotransferase (ALT/SGPT) 125 U/L (14-59) Alkaline Phosphatase 53 U/L (46-116) Total Protein 6.0 g/dL (6.4-8.2) Albumin 2.7 g/dL (3.4-5.0) Albumin/Globulin Ratio 0.8 (1.0-1.7) Laboratory Tests Test 04/11/20 11:07 04/11/20 16:37 04/11/20 20:31 04/12/20 07:05 Glucose (Fingerstick) 163 mg/dL (70-99) 170 mg/dL (70-99) 103 mg/dL (70-99) White Blood Count 9.6 x10^3/uL (4.0-11.0) Red Blood Count 3.46 x10^6/uL (3.50-5.40) Hemoglobin 11.6 g/dL (12.0-15.5) Hematocrit 34.1 % (36.0-47.0) Mean Corpuscular Volume 98 fL (79-100) Mean Corpuscular Hemoglobin 34 pg (25-35) Mean Corpuscular Hemoglobin Concent 34 g/dL (31-37) Red Cell Distribution Width 12.2 % (11.5-14.5) Platelet Count 207 x10^3/uL (140-400) Neutrophils (%) (Auto) 82 % (31-73) Lymphocytes (%) (Auto) 7 % (24-48) Monocytes (%) (Auto) 11 % (0-9) Eosinophils (%) (Auto) 0 % (0-3) Basophils (%) (Auto) 0 % (0-3) Neutrophils # (Auto) 7.9 x10^3/uL (1.8-7.7) Lymphocytes # (Auto) 0.6 x10^3/uL (1.0-4.8) Monocytes # (Auto) 1.1 x10^3/uL (0.0-1.1) Eosinophils # (Auto) 0.0 x10^3/uL (0.0-0.7) Basophils # (Auto) 0.0 x10^3/uL (0.0-0.2) Sodium Level 132 mmol/L (136-145) Potassium Level 3.7 mmol/L (3.5-5.1) Chloride Level 96 mmol/L (98-107) Carbon Dioxide Level 32 mmol/L (21-32) Anion Gap 4 (6-14) Blood Urea Nitrogen 5 mg/dL (7-20) Creatinine 0.5 mg/dL (0.6-1.0) Estimated GFR (Cockcroft-Gault) 120.3 BUN/Creatinine Ratio 10 (6-20) Glucose Level 108 mg/dL (70-99) Calcium Level 8.5 mg/dL (8.5-10.1) Total Bilirubin 1.0 mg/dL (0.2-1.0) Aspartate Amino Transf (AST/SGOT) 118 U/L (15-37) Alanine Aminotransferase (ALT/SGPT) 125 U/L (14-59) Alkaline Phosphatase 53 U/L (46-116) Total Protein 6.0 g/dL (6.4-8.2) Albumin 2.7 g/dL (3.4-5.0) Albumin/Globulin Ratio 0.8 (1.0-1.7) Test 04/12/20 07:28 Glucose (Fingerstick) 118 mg/dL (70-99) Assessment/Plan Status post repair of large hiatal hernia. We will monitor pulmonary status today hopefully home tomorrow Justicifation of Admission Dx: Justifications for Admission: Justification of Admission Dx: Yes AMA SANTOS MD Apr 12, 2020 08:32
[2020-04-12] MEDS: HYDROcodon/APAP 7.5/325MG ORAL 15 ML SOLUTION PO PRN ×2 (08:57→21:49)
--- NOTE | 2020-04-12 09:52 | PDOC ---
PROGRESS NOTES Date of Service: DATE: 04/12/20 TIME: 09:49 Chief Complaint Chief Complaint VTE Prophylaxis Ordered VTE Prophylaxis Devices: No VTE Pharmacological Prophylaxi: Contraindicated Assessment/Plan Assessment/Plan impression Large hiatal hernia contains stomach, transverse colon, and pancreas CRC screen - none Diverticulosis - noted on CT S/p cholecystectomy NSAID use HYPERGLYCEMIA chronic gastritis POST OP Status post Emelina fundoplication for large paraesophageal hernia hopefully home tomorrow plan Laparoscopic repair of massive paraesophageal hernia with Emelina fundoplication ACCUCHECKS A1C PAIN CONTROL PT/OT 04/12 SOA EARLIER today, still on o2 cxr pending, ua , possible atelectasis vs infiltrate Justifications for Admission Other Justification History of Present Illness History of Present Illness Identification/Chief Complaint Chief Complaint 74 year old Nigerien-speaking female patient with a history of acid reflux, anxiety, ASKED to see for hyperglycemia, post-op Past Medical History Past Medical History Past Medical History Cardiovascular: HTN, Hyperlipidemia Musculoskeletal: Osteoarthritis Family History Family History: Hypertension Social History Smoke: No ALCOHOL: none Drugs: None Operative Note Operative Note Operative Note Operative Note Preoperative Diagnosis: Massive paraesophageal hernia with gastroesophageal reflux disease Postoperative Diagnosis: Same Procedure: Laparoscopic repair of massive paraesophageal hernia with Emelina fundoplication Surgeon: Jaya Schwartz.: Dr. Torres Anesthesia: Gen. Estimated Blood Loss: 50 mL Specimen: None Drains: None Complications: None Indications: The patient is a 74-year-old female who was referred due to a massive paraesophageal hernia Cardiovascular: HTN, Hyperlipidemia GI: GERD, GI bleed, Peptic Ulcer disease Musculoskeletal: Osteoarthritis Past Surgical History Past Surgical History: No pertinent history Family History Family History: Hypertension Social History Smoke: No ALCOHOL: none Drugs: None Vitals Vitals Vital Signs Date Time Temp Pulse Resp B/P (MAP) Pulse Ox O2 Delivery O2 Flow Rate FiO2 04/12/20 08:57 Room Air 04/12/20 07:00 98.4 84 138/59 (85) 96 2.0 98.4 04/11/20 23:00 18 Physical Exam Physical Exam Physical Exam Physical Exam GEN: NAD HEENT: Atraumatic, PERRL LUNGS: CTAB HEART: RRR ABD: NABS, S/ND/NT EXTREMITY: No edema SKIN: No rashes, no jaundice NEURO/PSYCH: A & O 3 General: Alert, Oriented X3, Cooperative, No acute distress HEENT: Atraumatic, PERRLA, EOMI, Mucous membr. moist/pink Lungs: Clear to auscultation, Normal air movement Heart: RRR Breasts: Not examined Rectal Exam: not examined PELVIC: Examination not indicated Extremities: No cyanosis Skin: No breakdown, No significant lesion Neuro: Normal speech, Cranial nerves 3-12 NL Psych/Mental Status: Mental status NL, Mood NL General: Alert, Oriented X3, Cooperative, No acute distress Heart: Regular rate, Normal S1 Lungs: Crackles Abdomen: Normal bowel sounds, Soft, No tenderness Extremities: No cyanosis Skin: No breakdown, No significant lesion Labs LABS Max HR: 109 bpm Max Blood Pressure: 137/68mmHg Blood Pressure response to exercise: Normal blood pressure response during stress. Heart Rate response to exercise: wnl Chest Pain: No. Arrhythmia: No. ST Change: No. INTERPRETATION Stress EKG Conclusion: Baseline EKG showed sinus rhythm. No ischemic changes at peak stress. No arrhythmias. Imaging Protocol IMAGE PROTOCOL: Rest Tc-99m/stress Tc-99m 1 day Rest: Stress: Viability: Radiopharm. Tc99m Sestamibi Tc99m Sestamibi Dose 10.4mCi 33mCi Duration 13min. 13min. Img Date 03/18/2019 03/18/2019 Inj-Img Time 60min. 60min. Rest Admin Site: IV - Right Antecubital Iron Melter: RT Elizabeth (R)(N) Stress Admin Site: IV - Right Antecubital Iron Melter: VIVIAN Greer STRESS DATA End Diast. Vol. 15.0ml Av. Heart Rate 107.0bpm LVEDV index BSA 11.0ml Cardiac Output 0.0L/min CO Index BSA 0.0L/min Myocardial Mass 42.0g Eject. Fraction 100.0% Stress Scores Regional WT 0.00 Summed WT 3.00 Regional WM 0.00 Summed WM 3.00 Study quality was good. Left Ventricular size was Normal at Rest and Stress. Lung uptake was . Left Ventricular ejection fraction is >80%. The rest and stress images show normal perfusion, normal contraction and thickening. LV Perf. Quant 17 Seg. SSS 0.00 17 Seg. SRS 0.00 17 Seg. SDS 0.00 Stress Defect Extent (% LAD) 0.00 Rest Defect Extent (% LAD) 0.00 Rev. Defect Extent (% LAD) 0.00 Stress Defect Extent (% LCX) 0.00 Rest Defect Extent (% LCX) 0.00 Rev. Defect Extent (% LCX) 0.00 Stress Defect Extent (% RCA) 0.00 Rest Defect Extent (% RCA) 0.00 Rev. Defect Extent (% RCA) 0.00 Stress Defect Extent (% NICOLETTE) 0.00 Rest Defect Extent (% NICOLETTE) 0.00 Rev. Defect Extent (% NICOLETTE) 0.00 Conclusion 1. Regadenoson cardioisotope stress test did not show any evidence of ischemia or infarct. 2. Normal left ventricular systolic function with ejection fraction calculated at >80%. 3. Low risk for cardiac events. Signed by : Karel Orozco, Electronically Approved : 03/18/2019 14:22:38 Laboratory Tests Test 04/11/20 11:07 04/11/20 16:37 04/11/20 20:31 04/12/20 07:05 Glucose (Fingerstick) 163 mg/dL (70-99) 170 mg/dL (70-99) 103 mg/dL (70-99) White Blood Count 9.6 x10^3/uL (4.0-11.0) Red Blood Count 3.46 x10^6/uL (3.50-5.40) Hemoglobin 11.6 g/dL (12.0-15.5) Hematocrit 34.1 % (36.0-47.0) Mean Corpuscular Volume 98 fL (79-100) Mean Corpuscular Hemoglobin 34 pg (25-35) Mean Corpuscular Hemoglobin Concent 34 g/dL (31-37) Red Cell Distribution Width 12.2 % (11.5-14.5) Platelet Count 207 x10^3/uL (140-400) Neutrophils (%) (Auto) 82 % (31-73) Lymphocytes (%) (Auto) 7 % (24-48) Monocytes (%) (Auto) 11 % (0-9) Eosinophils (%) (Auto) 0 % (0-3) Basophils (%) (Auto) 0 % (0-3) Neutrophils # (Auto) 7.9 x10^3/uL (1.8-7.7) Lymphocytes # (Auto) 0.6 x10^3/uL (1.0-4.8) Monocytes # (Auto) 1.1 x10^3/uL (0.0-1.1) Eosinophils # (Auto) 0.0 x10^3/uL (0.0-0.7) Basophils # (Auto) 0.0 x10^3/uL (0.0-0.2) Sodium Level 132 mmol/L (136-145) Potassium Level 3.7 mmol/L (3.5-5.1) Chloride Level 96 mmol/L (98-107) Carbon Dioxide Level 32 mmol/L (21-32) Anion Gap 4 (6-14) Blood Urea Nitrogen 5 mg/dL (7-20) Creatinine 0.5 mg/dL (0.6-1.0) Estimated GFR (Cockcroft-Gault) 120.3 BUN/Creatinine Ratio 10 (6-20) Glucose Level 108 mg/dL (70-99) Calcium Level 8.5 mg/dL (8.5-10.1) Total Bilirubin 1.0 mg/dL (0.2-1.0) Aspartate Amino Transf (AST/SGOT) 118 U/L (15-37) Alanine Aminotransferase (ALT/SGPT) 125 U/L (14-59) Alkaline Phosphatase 53 U/L (46-116) Total Protein 6.0 g/dL (6.4-8.2) Albumin 2.7 g/dL (3.4-5.0) Albumin/Globulin Ratio 0.8 (1.0-1.7) Test 04/12/20 07:28 Glucose (Fingerstick) 118 mg/dL (70-99) Comment Review of Relevant I have reviewed the following items rachana (where applicable) has been applied. Labs Laboratory Tests Test 04/10/20 11:27 04/10/20 11:34 04/10/20 16:38 04/10/20 20:48 White Blood Count 10.6 x10^3/uL (4.0-11.0) Red Blood Count 3.74 x10^6/uL (3.50-5.40) Hemoglobin 12.4 g/dL (12.0-15.5) Hematocrit 37.6 % (36.0-47.0) Mean Corpuscular Volume 101 fL (79-100) Mean Corpuscular Hemoglobin 33 pg (25-35) Mean Corpuscular Hemoglobin Concent 33 g/dL (31-37) Red Cell Distribution Width 12.6 % (11.5-14.5) Platelet Count 238 x10^3/uL (140-400) Neutrophils (%) (Auto) 82 % (31-73) Lymphocytes (%) (Auto) 9 % (24-48) Monocytes (%) (Auto) 9 % (0-9) Eosinophils (%) (Auto) 0 % (0-3) Basophils (%) (Auto) 0 % (0-3) Neutrophils # (Auto) 8.7 x10^3/uL (1.8-7.7) Lymphocytes # (Auto) 1.0 x10^3/uL (1.0-4.8) Monocytes # (Auto) 0.9 x10^3/uL (0.0-1.1) Eosinophils # (Auto) 0.0 x10^3/uL (0.0-0.7) Basophils # (Auto) 0.0 x10^3/uL (0.0-0.2) Sodium Level 136 mmol/L (136-145) Potassium Level 4.4 mmol/L (3.5-5.1) Chloride Level 101 mmol/L (98-107) Carbon Dioxide Level 26 mmol/L (21-32) Anion Gap 9 (6-14) Blood Urea Nitrogen 11 mg/dL (7-20) Creatinine 0.8 mg/dL (0.6-1.0) Estimated GFR (Cockcroft-Gault) 69.9 BUN/Creatinine Ratio 14 (6-20) Glucose Level 173 mg/dL (70-99) Hemoglobin A1c 5.4 % (4.8-5.6) Calcium Level 8.1 mg/dL (8.5-10.1) Total Bilirubin 0.6 mg/dL (0.2-1.0) Aspartate Amino Transf (AST/SGOT) 243 U/L (15-37) Alanine Aminotransferase (ALT/SGPT) 172 U/L (14-59) Alkaline Phosphatase 43 U/L (46-116) Total Protein 6.0 g/dL (6.4-8.2) Albumin 2.9 g/dL (3.4-5.0) Albumin/Globulin Ratio 0.9 (1.0-1.7) Glucose (Fingerstick) 178 mg/dL (70-99) 127 mg/dL (70-99) 149 mg/dL (70-99) Test 04/11/20 07:14 04/11/20 07:45 04/11/20 07:55 04/11/20 11:07 Glucose (Fingerstick) 137 mg/dL (70-99) 163 mg/dL (70-99) Sodium Level 128 mmol/L (136-145) Potassium Level 4.2 mmol/L (3.5-5.1) Chloride Level 94 mmol/L (98-107) Carbon Dioxide Level 28 mmol/L (21-32) Anion Gap 6 (6-14) Blood Urea Nitrogen 10 mg/dL (7-20) Creatinine 0.5 mg/dL (0.6-1.0) Estimated GFR (Cockcroft-Gault) 120.3 Glucose Level 133 mg/dL (70-99) Calcium Level 8.2 mg/dL (8.5-10.1) White Blood Count 11.4 x10^3/uL (4.0-11.0) Red Blood Count 3.41 x10^6/uL (3.50-5.40) Hemoglobin 11.4 g/dL (12.0-15.5) Hematocrit 33.9 % (36.0-47.0) Mean Corpuscular Volume 99 fL (79-100) Mean Corpuscular Hemoglobin 33 pg (25-35) Mean Corpuscular Hemoglobin Concent 34 g/dL (31-37) Red Cell Distribution Width 12.4 % (11.5-14.5) Platelet Count 204 x10^3/uL (140-400) Neutrophils (%) (Auto) 83 % (31-73) Lymphocytes (%) (Auto) 8 % (24-48) Monocytes (%) (Auto) 9 % (0-9) Eosinophils (%) (Auto) 0 % (0-3) Basophils (%) (Auto) 0 % (0-3) Neutrophils # (Auto) 9.5 x10^3/uL (1.8-7.7) Lymphocytes # (Auto) 0.9 x10^3/uL (1.0-4.8) Monocytes # (Auto) 1.0 x10^3/uL (0.0-1.1) Eosinophils # (Auto) 0.0 x10^3/uL (0.0-0.7) Basophils # (Auto) 0.0 x10^3/uL (0.0-0.2) Test 04/11/20 16:37 04/11/20 20:31 04/12/20 07:05 04/12/20 07:28 Glucose (Fingerstick) 170 mg/dL (70-99) 103 mg/dL (70-99) 118 mg/dL (70-99) White Blood Count 9.6 x10^3/uL (4.0-11.0) Red Blood Count 3.46 x10^6/uL (3.50-5.40) Hemoglobin 11.6 g/dL (12.0-15.5) Hematocrit 34.1 % (36.0-47.0) Mean Corpuscular Volume 98 fL (79-100) Mean Corpuscular Hemoglobin 34 pg (25-35) Mean Corpuscular Hemoglobin Concent 34 g/dL (31-37) Red Cell Distribution Width 12.2 % (11.5-14.5) Platelet Count 207 x10^3/uL (140-400) Neutrophils (%) (Auto) 82 % (31-73) Lymphocytes (%) (Auto) 7 % (24-48) Monocytes (%) (Auto) 11 % (0-9) Eosinophils (%) (Auto) 0 % (0-3) Basophils (%) (Auto) 0 % (0-3) Neutrophils # (Auto) 7.9 x10^3/uL (1.8-7.7) Lymphocytes # (Auto) 0.6 x10^3/uL (1.0-4.8) Monocytes # (Auto) 1.1 x10^3/uL (0.0-1.1) Eosinophils # (Auto) 0.0 x10^3/uL (0.0-0.7) Basophils # (Auto) 0.0 x10^3/uL (0.0-0.2) Sodium Level 132 mmol/L (136-145) Potassium Level 3.7 mmol/L (3.5-5.1) Chloride Level 96 mmol/L (98-107) Carbon Dioxide Level 32 mmol/L (21-32) Anion Gap 4 (6-14) Blood Urea Nitrogen 5 mg/dL (7-20) Creatinine 0.5 mg/dL (0.6-1.0) Estimated GFR (Cockcroft-Gault) 120.3 BUN/Creatinine Ratio 10 (6-20) Glucose Level 108 mg/dL (70-99) Calcium Level 8.5 mg/dL (8.5-10.1) Total Bilirubin 1.0 mg/dL (0.2-1.0) Aspartate Amino Transf (AST/SGOT) 118 U/L (15-37) Alanine Aminotransferase (ALT/SGPT) 125 U/L (14-59) Alkaline Phosphatase 53 U/L (46-116) Total Protein 6.0 g/dL (6.4-8.2) Albumin 2.7 g/dL (3.4-5.0) Albumin/Globulin Ratio 0.8 (1.0-1.7) Laboratory Tests Test 04/11/20 11:07 04/11/20 16:37 04/11/20 20:31 04/12/20 07:05 Glucose (Fingerstick) 163 mg/dL (70-99) 170 mg/dL (70-99) 103 mg/dL (70-99) White Blood Count 9.6 x10^3/uL (4.0-11.0) Red Blood Count 3.46 x10^6/uL (3.50-5.40) Hemoglobin 11.6 g/dL (12.0-15.5) Hematocrit 34.1 % (36.0-47.0) Mean Corpuscular Volume 98 fL (79-100) Mean Corpuscular Hemoglobin 34 pg (25-35) Mean Corpuscular Hemoglobin Concent 34 g/dL (31-37) Red Cell Distribution Width 12.2 % (11.5-14.5) Platelet Count 207 x10^3/uL (140-400) Neutrophils (%) (Auto) 82 % (31-73) Lymphocytes (%) (Auto) 7 % (24-48) Monocytes (%) (Auto) 11 % (0-9) Eosinophils (%) (Auto) 0 % (0-3) Basophils (%) (Auto) 0 % (0-3) Neutrophils # (Auto) 7.9 x10^3/uL (1.8-7.7) Lymphocytes # (Auto) 0.6 x10^3/uL (1.0-4.8) Monocytes # (Auto) 1.1 x10^3/uL (0.0-1.1) Eosinophils # (Auto) 0.0 x10^3/uL (0.0-0.7) Basophils # (Auto) 0.0 x10^3/uL (0.0-0.2) Sodium Level 132 mmol/L (136-145) Potassium Level 3.7 mmol/L (3.5-5.1) Chloride Level 96 mmol/L (98-107) Carbon Dioxide Level 32 mmol/L (21-32) Anion Gap 4 (6-14) Blood Urea Nitrogen 5 mg/dL (7-20) Creatinine 0.5 mg/dL (0.6-1.0) Estimated GFR (Cockcroft-Gault) 120.3 BUN/Creatinine Ratio 10 (6-20) Glucose Level 108 mg/dL (70-99) Calcium Level 8.5 mg/dL (8.5-10.1) Total Bilirubin 1.0 mg/dL (0.2-1.0) Aspartate Amino Transf (AST/SGOT) 118 U/L (15-37) Alanine Aminotransferase (ALT/SGPT) 125 U/L (14-59) Alkaline Phosphatase 53 U/L (46-116) Total Protein 6.0 g/dL (6.4-8.2) Albumin 2.7 g/dL (3.4-5.0) Albumin/Globulin Ratio 0.8 (1.0-1.7) Test 04/12/20 07:28 Glucose (Fingerstick) 118 mg/dL (70-99) Medications Current Medications Ondansetron HCl (Zofran) 4 mg PRN Q6HRS PRN IVP NAUSEA/VOMITING; Start 04/09/20 at 07:00; Stop 04/10/20 at 06:59; Status DC Fentanyl Citrate (Fentanyl 2ml Vial) 25 mcg PRN Q5MIN PRN IVP MILD PAIN 1-3; Start 04/09/20 at 07:00; Stop 04/10/20 at 06:59; Status DC Fentanyl Citrate (Fentanyl 2ml Vial) 50 mcg PRN Q5MIN PRN IVP MODERATE TO SEVERE PAIN Last administered on 04/09/20at 17:15; Start 04/09/20 at 07:00; Stop 04/10/20 at 06:59; Status DC Morphine Sulfate (Morphine Sulfate) 1 mg PRN Q10MIN PRN IVP SEVERE PAIN 7-10 Last administered on 04/09/20at 17:51; Start 04/09/20 at 07:00; Stop 04/10/20 at 06:59; Status DC Ringer's Solution 1,000 ml @ 30 mls/hr Q24H IV Last administered on 04/09/20at 16:32; Start 04/09/20 at 07:00; Stop 04/09/20 at 18:59; Status DC Lidocaine HCl (Xylocaine-Mpf 1% 2ml Vial) 2 ml PRN 1X PRN ID IV START; Start 04/09/20 at 07:00; Stop 04/10/20 at 06:59; Status DC Hydromorphone HCl (Dilaudid) 0.5 mg PRN Q10MIN PRN IVP SEV PAIN, Second choice; Start 04/09/20 at 07:00; Stop 04/10/20 at 06:59; Status DC Prochlorperazine Edisylate (Compazine) 5 mg PACU PRN PRN IVP NAUSEA, MRX1 Last administered on 04/09/20at 16:54; Start 04/09/20 at 07:00; Stop 04/10/20 at 06:59; Status DC Bupivacaine HCl/ Epinephrine Bitart (Sensorcain-Epi 0.5%-1:[id number] Mpf) 30 ml 1X ONCE INJ Last administered on 04/09/20at 11:49; Start 04/09/20 at 06:00; Stop 04/09/20 at 06:01; Status DC Cefazolin Sodium (Ancef) 1 gm ONCE ONCE IVP Last administered on 04/09/20at 11:20; Start 04/09/20 at 06:00; Stop 04/09/20 at 06:01; Status DC Midazolam HCl (Versed) 2 mg STK-MED ONCE .ROUTE ; Start 04/09/20 at 09:10; Stop 04/09/20 at 09:10; Status DC Fentanyl Citrate (Fentanyl 2ml Vial) 100 mcg STK-MED ONCE .ROUTE ; Start 04/09/20 at 09:10; Stop 04/09/20 at 09:11; Status DC Rocuronium Buckley (Zemuron) 50 mg STK-MED ONCE .ROUTE ; Start 04/09/20 at 09:10; Stop 04/09/20 at 09:11; Status DC Desflurane (Suprane) 90 ml STK-MED ONCE IH ; Start 04/09/20 at 09:14; Stop 04/09/20 at 09:14; Status DC Propofol (Diprivan) 200 mg STK-MED ONCE IV ; Start 04/09/20 at 09:14; Stop 04/09/20 at 09:14; Status DC Lidocaine HCl (Lidocaine Pf 2% Vial) 5 ml STK-MED ONCE .ROUTE ; Start 04/09/20 at 09:14; Stop 04/09/20 at 09:14; Status DC Ondansetron HCl (Zofran) 4 mg STK-MED ONCE .ROUTE ; Start 04/09/20 at 09:14; Stop 04/09/20 at 09:14; Status DC Famotidine (Pepcid Vial) 20 mg STK-MED ONCE .ROUTE ; Start 04/09/20 at 09:14; Stop 04/09/20 at 09:14; Status DC Dexamethasone Sodium Phosphate (Decadron) 4 mg STK-MED ONCE .ROUTE ; Start 04/09/20 at 09:14; Stop 04/09/20 at 09:14; Status DC Cellulose (Surgicel Hemostat 4x8) 1 each STK-MED ONCE .ROUTE Last administered on 04/09/20at 11:49; Start 04/09/20 at 10:00; Stop 04/09/20 at 10:01; Status DC Cellulose (Surgicel Hemostat 4x8) 1 each STK-MED ONCE .ROUTE ; Start 04/09/20 at 10:00; Stop 04/09/20 at 10:01; Status DC Phenylephrine HCl (PHENYLEPHRINE in 0.9% NACL PF) 1 mg STK-MED ONCE IV ; Start 04/09/20 at 11:13; Stop 12/17/20 at 11:13; Status DC Phenylephrine HCl (Daryl-Synephrine Inj) 10 mg STK-MED ONCE .ROUTE ; Start 04/09/20 at 11:31; Stop 04/09/20 at 11:31; Status DC Glycopyrrolate (Robinul) 1 mg STK-MED ONCE .ROUTE ; Start 04/09/20 at 12:48; Stop 04/09/20 at 12:48; Status DC Neostigmine Buckley (Neostigmine Methylsulfate) 5 mg STK-MED ONCE .ROUTE ; Start 04/09/20 at 12:48; Stop 04/09/20 at 12:48; Status DC Rocuronium Buckley (Zemuron) 50 mg STK-MED ONCE .ROUTE ; Start 04/09/20 at 14:24; Stop 04/09/20 at 14:25; Status DC Fentanyl Citrate (Fentanyl 2ml Vial) 100 mcg STK-MED ONCE .ROUTE ; Start 04/09/20 at 14:54; Stop 04/09/20 at 14:54; Status DC Desflurane (Suprane) 90 ml STK-MED ONCE IH ; Start 04/09/20 at 15:19; Stop 04/09/20 at 15:20; Status DC Cefazolin Sodium (Ancef) 1 gm 1X ONCE IVP Last administered on 04/09/20at 16:26; Start 04/09/20 at 15:10; Stop 04/09/20 at 16:25; Status DC Cefazolin Sodium (Ancef) 1 gm STK-MED ONCE IVP ; Start 04/09/20 at 16:23; Stop 04/09/20 at 16:23; Status DC Insulin Human Lispro (HumaLOG VIAL for OP,RR ONLY) 0-10 units PRN Q1HR PRN SQ PER PROTOCOL Last administered on 04/09/20at 17:28; Start 04/09/20 at 16:30; Stop 04/10/20 at 16:29; Status DC Sodium Chloride (Normal Saline Flush) 3 ml QSHIFT PRN IV AFTER MEDS AND BLOOD DRAWS; Start 04/09/20 at 16:30 Sodium Chloride 1,000 ml @ 80 mls/hr [id number] IV Last administered on 04/10/20at 05:43; Start 04/09/20 at 16:30 Naloxone HCl (Narcan) 0.4 mg PRN Q2MIN PRN IV SEE INSTRUCTIONS; Start 04/09/20 at 16:30 Sodium Chloride 1,000 ml @ 25 mls/hr Q24H IV ; Start 04/09/20 at 16:30 Hydromorphone HCl (Dilaudid) 0.2 mg PRN Q1HR PRN IV PAIN Last administered on 04/11/20at 13:22; Start 04/09/20 at 16:30 Ondansetron HCl (Zofran) 4 mg PRN Q6HRS PRN IVP NAUESA, 1ST CHOICE; Start 04/09/20 at 16:30 Prochlorperazine Edisylate (Compazine) 5 mg PRN Q6HRS PRN IV N/V, 2nd Choice, MR X1; Start 04/09/20 at 16:30 Prochlorperazine Edisylate (Compazine) 10 mg STK-MED ONCE .ROUTE ; Start at 16:41; Stop 04/09/20 at 16:41; Status DC Fentanyl Citrate (Fentanyl 2ml Vial) 100 mcg STK-MED ONCE .ROUTE ; Start 1 06/10/19 at 16:41; Stop 04/09/20 at 16:41; Status DC Morphine Sulfate (Morphine Sulfate) 2 mg STK-MED ONCE .ROUTE ; Start 04/09/20 at 17:22; Stop 04/09/20 at 17:22; Status DC Diphenhydramine HCl (Benadryl) 25 mg PRN QHS PRN IVP ITCHING Last administered on 04/11/20at 21:03; Start 04/09/20 at 20:30 Diclofenac Sodium (Voltaren) 1 radha QID TP Last administered on 04/11/20at 08:5 6; Start 04/09/20 at 21:00 Pantoprazole Sodium (Protonix) 40 mg DAILYAC PO Last administered on 04/12/20at 07:49; Start 04/10/20 at 09:30 Acetaminophen/ Hydrocodone Bitart (Lortab 7.5-325/ 15ml Oral Solution) 15 ml PRN Q6HRS PRN PO PAIN Last administered on 04/12/20at 08:57; Start 04/10/20 at 09:45 Insulin Human Lispro (HumaLOG VIAL for OP,RR ONLY) 4 unit STK-MED ONCE SQ ; St art 04/09/20 at 16:30; Stop 04/10/20 at 10:26; Status DC Insulin Human Lispro (HumaLOG) 0-5 UNITS TIDWMEALS SQ Last administered on 04/11/20at 18:01; Start 04/10/20 at 12:00 Dextrose (Dextrose 50%-Water Syringe) 12.5 gm PRN Q15MIN PRN IV SEE COMMENTS; Start 04/10/20 at 10:45 Bisacodyl (Dulcolax Supp) 10 mg 1X ONCE PA ; Start 04/11/20 at 12:30; Stop 04/11/20 at 12:31; Status DC Furosemide (Lasix) 20 mg 1X ONCE IVP Last administered on 04/12/20at 07:50; Start 04/12/20 at 08:00; Stop 04/12/20 at 08:01; Status DC Active Scripts Active Pantoprazole Sodium (Pantoprazole Sodium) 40 Mg Tablet.dr 40 Mg PO DAILYAC 30 Days Reported Voltaren (Diclofenac Sodium) 100 Gm Gel..gram. 1 Gm TP QID 30 Days apply to affected area(s) Clonazepam 1 Mg Tablet 1 Mg PO DAILY Vitals/I & O Vital Sign - Last 24 Hours 04/11/20 04/11/20 04/11/20 04/11/20 10:48 13:22 13:52 14:36 Temp 97.5 97.9 97.5 97.9 Pulse 96 95 Resp 18 18 B/P (MAP) 126/68 (87) 138/68 (91) Pulse Ox 90 88 O2 Delivery Room Air Room Air 04/11/20 04/11/20 04/11/20 04/12/20 19:00 20:00 23:00 02:53 Temp 98.1 97.8 98.1 98.1 97.8 98.1 Pulse 100 96 105 Resp 18 18 B/P (MAP) 126/69 (88) 131/68 (89) 139/71 (93) Pulse Ox 93 98 92 O2 Delivery Nasal Cannula Nasal Cannula Nasal Cannula Nasal Cannula O2 Flow Rate 2.0 2.0 2.0 2.0 04/12/20 04/12/20 07:00 08:57 Temp 98.4 98.4 Pulse 84 B/P (MAP) 138/59 (85) Pulse Ox 96 O2 Delivery Nasal Cannula Room Air O2 Flow Rate 2.0 Intake and Output 04/11/20 04/11/20 04/12/20 15:00 23:00 07:00 Output Total 350 ml Balance -350 ml Justicifation of Admission Dx: Justifications for Admission: Justification of Admission Dx: Yes AMA MYERS MD Apr 12, 2020 09:52
[2020-04-12 11:00] VITALS: BP 146/78
--- NOTE | 2020-04-12 13:45 | RAD ---
EXAM: XR CHEST 1V INDICATION: Reason: trouble breathing. on oxygen / Spl. Instructions: / History: . TECHNIQUE: Single view COMPARISON: Abdomen CT with IV contrast of 03/01/2020 FINDINGS: Upper normal heart size. The great vessels appear unremarkable. Previously evident large hiatal hernia is less obvious in part due to opacities of the bilateral lung bases in the interval. Otherwise, no new mediastinal or hilar mass or adenopathy is apparent. Lungs show bibasilar opacities compatible with atelectasis or consolidation. Platelike atelectasis in the mid left lung is present. There are small bilateral pleural effusions. There are no significant osseous abnormalities. IMPRESSION: 1. Bibasilar atelectasis or consolidation with small bilateral pleural effusions. 2. Previously evident large hiatal hernia is less obvious in part due to differences in technique. 3. Platelike atelectasis in the mid left lung. Electronically signed by: Joellen Serrano MD (04/12/2020 1:42 PM) [id number]
[2020-04-12 15:00] VITALS: BP 137/67
[2020-04-12] MEDS: IV NORMAL SALINE 1000ML BAG 1,000 ML IV SCH (16:21)
[2020-04-12 19:00] VITALS: BP 130/76
[2020-04-12 23:00] VITALS: BP 119/83
[2020-04-13 03:11] VITALS: BP 150/78
[2020-04-13] MEDS: PANTOPRAZOLE 40 MG TABLET.DR. PO SCH (05:56)
[2020-04-13 07:00] VITALS: BP 164/88
[2020-04-13] MEDS: IV 1/2 NORMAL SALINE 1,000 ML IV SCH (08:00)
[2020-04-13] MEDS: INSULIN LISPRO 300 UNITS/3 ML VIAL. SQ SCH ×2 (08:00→12:22)
--- NOTE | 2020-04-13 08:20 | PDOC ---
[facility] [employer] [facility] 04/13/20 0820: SURGICAL PROGRESS NOTE DATE: 04/13/20 TIME: 08:19 Subjective feeling ok no pain no nausea tired of clears Vital Signs Vital Signs Date Time Temp Pulse Resp B/P (MAP) Pulse Ox O2 Delivery O2 Flow Rate FiO2 04/13/20 07:39 Nasal Cannula 2.0 04/13/20 07:00 98.1 73 19 164/88 (113) 97 98.1 General: Alert, Oriented X3, Cooperative Abdomen: Soft, Other (NTTP, lap sites intact ) Labs Laboratory Tests Test 04/11/20 11:07 04/11/20 16:37 04/11/20 20:31 04/12/20 07:05 Glucose (Fingerstick) 163 mg/dL (70-99) 170 mg/dL (70-99) 103 mg/dL (70-99) White Blood Count 9.6 x10^3/uL (4.0-11.0) Red Blood Count 3.46 x10^6/uL (3.50-5.40) Hemoglobin 11.6 g/dL (12.0-15.5) Hematocrit 34.1 % (36.0-47.0) Mean Corpuscular Volume 98 fL (79-100) Mean Corpuscular Hemoglobin 34 pg (25-35) Mean Corpuscular Hemoglobin Concent 34 g/dL (31-37) Red Cell Distribution Width 12.2 % (11.5-14.5) Platelet Count 207 x10^3/uL (140-400) Neutrophils (%) (Auto) 82 % (31-73) Lymphocytes (%) (Auto) 7 % (24-48) Monocytes (%) (Auto) 11 % (0-9) Eosinophils (%) (Auto) 0 % (0-3) Basophils (%) (Auto) 0 % (0-3) Neutrophils # (Auto) 7.9 x10^3/uL (1.8-7.7) Lymphocytes # (Auto) 0.6 x10^3/uL (1.0-4.8) Monocytes # (Auto) 1.1 x10^3/uL (0.0-1.1) Eosinophils # (Auto) 0.0 x10^3/uL (0.0-0.7) Basophils # (Auto) 0.0 x10^3/uL (0.0-0.2) Sodium Level 132 mmol/L (136-145) Potassium Level 3.7 mmol/L (3.5-5.1) Chloride Level 96 mmol/L (98-107) Carbon Dioxide Level 32 mmol/L (21-32) Anion Gap 4 (6-14) Blood Urea Nitrogen 5 mg/dL (7-20) Creatinine 0.5 mg/dL (0.6-1.0) Estimated GFR (Cockcroft-Gault) 120.3 BUN/Creatinine Ratio 10 (6-20) Glucose Level 108 mg/dL (70-99) Calcium Level 8.5 mg/dL (8.5-10.1) Total Bilirubin 1.0 mg/dL (0.2-1.0) Aspartate Amino Transf (AST/SGOT) 118 U/L (15-37) Alanine Aminotransferase (ALT/SGPT) 125 U/L (14-59) Alkaline Phosphatase 53 U/L (46-116) Total Protein 6.0 g/dL (6.4-8.2) Albumin 2.7 g/dL (3.4-5.0) Albumin/Globulin Ratio 0.8 (1.0-1.7) Test 04/12/20 07:28 04/12/20 11:18 04/12/20 16:10 04/12/20 20:40 Glucose (Fingerstick) 118 mg/dL (70-99) 143 mg/dL (70-99) 138 mg/dL (70-99) 149 mg/dL (70-99) Laboratory Tests Test 04/12/20 11:18 04/12/20 16:10 04/12/20 20:40 Glucose (Fingerstick) 143 mg/dL (70-99) 138 mg/dL (70-99) 149 mg/dL (70-99) Problem List full liquids await pulm eval, still requiring O2 Justicifation of Admission Dx: Justifications for Admission: Justification of Admission Dx: Yes NINA PEREA MD 04/13/20 1347: SURGICAL PROGRESS NOTE Assessment/Plan Agree with above [facility] [employer] [facility] Apr 13, 2020 08:20 NINA PEREA MD Apr 13, 2020 13:47
--- NOTE | 2020-04-13 08:31 | PDOC ---
PULMONARY PROGRESS NOTES DATE: 04/13/20 TIME: 08:31 Vitals Vital Signs Date Time Temp Pulse Resp B/P (MAP) Pulse Ox O2 Delivery O2 Flow Rate FiO2 04/13/20 07:39 Nasal Cannula 2.0 04/13/20 07:00 98.1 73 19 164/88 (113) 97 98.1 Lungs: Crackles Labs Laboratory Tests Test 04/11/20 11:07 04/11/20 16:37 04/11/20 20:31 04/12/20 07:05 Glucose (Fingerstick) 163 mg/dL (70-99) 170 mg/dL (70-99) 103 mg/dL (70-99) White Blood Count 9.6 x10^3/uL (4.0-11.0) Red Blood Count 3.46 x10^6/uL (3.50-5.40) Hemoglobin 11.6 g/dL (12.0-15.5) Hematocrit 34.1 % (36.0-47.0) Mean Corpuscular Volume 98 fL (79-100) Mean Corpuscular Hemoglobin 34 pg (25-35) Mean Corpuscular Hemoglobin Concent 34 g/dL (31-37) Red Cell Distribution Width 12.2 % (11.5-14.5) Platelet Count 207 x10^3/uL (140-400) Neutrophils (%) (Auto) 82 % (31-73) Lymphocytes (%) (Auto) 7 % (24-48) Monocytes (%) (Auto) 11 % (0-9) Eosinophils (%) (Auto) 0 % (0-3) Basophils (%) (Auto) 0 % (0-3) Neutrophils # (Auto) 7.9 x10^3/uL (1.8-7.7) Lymphocytes # (Auto) 0.6 x10^3/uL (1.0-4.8) Monocytes # (Auto) 1.1 x10^3/uL (0.0-1.1) Eosinophils # (Auto) 0.0 x10^3/uL (0.0-0.7) Basophils # (Auto) 0.0 x10^3/uL (0.0-0.2) Sodium Level 132 mmol/L (136-145) Potassium Level 3.7 mmol/L (3.5-5.1) Chloride Level 96 mmol/L (98-107) Carbon Dioxide Level 32 mmol/L (21-32) Anion Gap 4 (6-14) Blood Urea Nitrogen 5 mg/dL (7-20) Creatinine 0.5 mg/dL (0.6-1.0) Estimated GFR (Cockcroft-Gault) 120.3 BUN/Creatinine Ratio 10 (6-20) Glucose Level 108 mg/dL (70-99) Calcium Level 8.5 mg/dL (8.5-10.1) Total Bilirubin 1.0 mg/dL (0.2-1.0) Aspartate Amino Transf (AST/SGOT) 118 U/L (15-37) Alanine Aminotransferase (ALT/SGPT) 125 U/L (14-59) Alkaline Phosphatase 53 U/L (46-116) Total Protein 6.0 g/dL (6.4-8.2) Albumin 2.7 g/dL (3.4-5.0) Albumin/Globulin Ratio 0.8 (1.0-1.7) Test 04/12/20 07:28 04/12/20 11:18 04/12/20 16:10 04/12/20 20:40 Glucose (Fingerstick) 118 mg/dL (70-99) 143 mg/dL (70-99) 138 mg/dL (70-99) 149 mg/dL (70-99) Laboratory Tests Test 04/12/20 11:18 04/12/20 16:10 04/12/20 20:40 Glucose (Fingerstick) 143 mg/dL (70-99) 138 mg/dL (70-99) 149 mg/dL (70-99) Medications Active Scripts Medications Dose Route/Sig Max Daily Dose Days Date Category Dose Instructions Voltaren (Diclofenac Sodium) 100 Gm Gel..gram. 1 Gm TP QID 04/09/20 Reported apply to affected area(s) Pantoprazole Sodium (Pantoprazole Sodium) 40 Mg Tablet.dr 40 Mg PO DAILYAC 03/04/20 Rx Clonazepam 1 Mg Tablet 1 Mg PO DAILY 05/02/17 Reported Impression . Full consult dictated Atelectasis hypoxemia secondary to recent surgery Continue incentive spirometry Okay to discharge from my perspective MARIANNA SANCHEZ MD Apr 13, 2020 08:31
[2020-04-13] MEDS: DICLOFENAC SODIUM 1% TOPICAL GEL 100GM TUBE. TP SCH (09:23)
--- NOTE | 2020-04-13 09:30 | NUR ---
SW following. Discussed with RN, pt from home with granddaughter, 2L oxygen, full liquid diet. PT/OT recommending home. Pt will need a 6 minute walk prior to discharge. SW will continue to follow. Addendum: 04/13/20 at 1401 by MARIBELL HUDSON SW RN was able to titrate pt off o2 prior to discharge. Home health discharge order - pt had discharged before SW could discus home health. Pt's insurance is not accepted by many home health companies, the ones who are in network are currently at capacity for this insurance and have advised this is for the remainder of 2020. No further SW needs.
[2020-04-13 11:00] VITALS: BP 146/88
--- NOTE | 2020-04-13 11:44 | CONS ---
DATE OF CONSULTATION: 04/13/2020 ATTENDING PHYSICIAN: Kuldeep Lake MD DICTATING PHYSICIAN: Marianna Sanchez MD REASON FOR CONSULTATION: The patient is seen in pulmonary consultation at the request of Dr. Lake for abnormal x-ray revealing some atelectasis basilar possible small effusion. HISTORY OF PRESENT ILLNESS: The patient is a 74-year-old that presented with a massive paraesophageal hernia with gastroesophageal reflux disease, underwent laparoscopic repair with a Emelina fundoplication. After surgery, she had periods of hypoxemia. Chest x-ray was obtained. I reviewed that this is bibasilar atelectasis, possible consolidation with small effusions. She had atelectasis in the mid left lung. The patient has never smoked. She normally does not wear oxygen. She is not complaining of being short of breath. She states that today she feels better. Yesterday, she was having some difficult time with incentive spirometry. PAST MEDICAL HISTORY: Otherwise remarkable for hypertension, hyperlipidemia, osteoarthritis. FAMILY HISTORY: Hypertension. SOCIAL HISTORY: She has never smoked. REVIEW OF SYSTEMS: As indicated above, otherwise, a 10-point system was reviewed and negative. PHYSICAL EXAMINATION: VITAL SIGNS: Stable. O2 saturation was greater than 92%. LUNGS: Clear with no wheezes. CARDIOVASCULAR: Regular rate and rhythm with S1, S2, no S3. ABDOMEN: Soft, nontender, nondistended. EXTREMITIES: No clubbing, cyanosis or edema. LABORATORY DATA: Reviewed. White count was normal. Hemoglobin and hematocrit were noted. Electrolytes were noted. IMPRESSION: 1. Abnormal x-ray compatible with atelectasis secondary to recent surgery. 2. Status post laparoscopic repair of massive paraesophageal hernia with Emelina fundoplication. 3. Hypoxemia secondary to atelectasis. PLAN: 1. The patient is doing well. No need for antibiotics. Continue incentive spirometry. 2. She is currently off of oxygen, saturating above 90%. 3. Discharge home okay from my standpoint view, I do appreciate the privilege in sharing in the patient's care. MARIANNA SANCHEZ MD DR: SUSANNAH/antwon JOB#: [id number] / [id number]
--- NOTE | 2020-04-13 11:47 | SNU/HH DC ---
DISCHARGE WITH HOME HEALTH DISCHARGE INFORMATION: Discharge Date: Apr 13, 2020 Final Diagnosis: Large hiatal hernia contains stomach, transverse colon, and pancreas CRC screen - none Diverticulosis - noted on CT S/p cholecystectomy HYPERGLYCEMIA chronic gastritis Condition on Discharge: Stable HOME HEALTH: Face to Face: I certify this patient is under my care and that I, or a nurse practitioner or physician's showroom sales assistant working with me, had a face to face encounter that meets the physician face to face encounter requirements with this patient on 04/13 Medical Complications: Other (hernia surgery) RN For Eval/Treatment: Yes Pt Meets Homebound Status: Poor coordination w/ amb., Unsteady balance w/ amb, POST DISCHARGE ORDERS: Activity Instructions for Disc: Activity as tolerated DIET AFTER DISCHARGE: Regular TREATMENT/EQUIPMENT ORDERS: Adaptive Equipment Issued: Front wheeled walker CERTIFICATION STATEMENT: Certification Statement: Certification Statement: Based on the above finding, I certify that this patient is confined to the home and needs intermittent residential care, physical therapy and/or speech therapy, or continues to need occupational therapy.~ This patient is under my care, and I have initiated the establishment of the plan of care.~ This patient will be followed by myself or a community physician who will periodically review the plan of care. Home Meds Active Scripts Pantoprazole Sodium (PANTOPRAZOLE SODIUM ) 40 Mg Tablet.dr, 40 MG PO DAILYAC for GERD/Hiatal hernia/PUD for 30 Days, #30 TAB.SR 1 Refill Prov:JAVY BILL MD 03/04/20 Reported Medications Diclofenac Sodium (VOLTAREN) 100 Gm Gel..gram., 1 GM TP QID for pain for 30 Days, #1 EACH 0 Refills apply to affected area(s) 04/09/20 Clonazepam (CLONAZEPAM) 1 Mg Tablet, 1 MG PO DAILY, TAB 05/02/17 RAN FITCH MD Apr 13, 2020 11:47
--- NOTE | 2020-04-13 11:53 | PDOC3 ---
Discharge Summary Visit Information Date of Admission: Apr 11, 2020 Date of Discharge: Apr 13, 2020 Final Diagnosis Large hiatal hernia contains stomach, transverse colon, and pancreas CRC screen - none Diverticulosis - noted on CT S/p cholecystectomy NSAID use HYPERGLYCEMIA chronic gastritis severe malnutrition Brief Hospital Course Allergies Allergies Coded Allergies Type Severity Reaction Last Updated Verified No Known Drug Allergies 03/02/20 No Vital Signs Vital Signs Date Time Temp Pulse Resp B/P (MAP) Pulse Ox O2 Delivery O2 Flow Rate FiO2 04/13/20 11:00 97.7 101 19 146/88 (107) 95 Room Air 97.7 04/13/20 07:39 2.0 Lab Results Laboratory Tests Test 04/11/20 16:37 04/11/20 20:31 04/12/20 07:05 04/12/20 07:28 Glucose (Fingerstick) 170 mg/dL (70-99) 103 mg/dL (70-99) 118 mg/dL (70-99) White Blood Count 9.6 x10^3/uL (4.0-11.0) Red Blood Count 3.46 x10^6/uL (3.50-5.40) Hemoglobin 11.6 g/dL (12.0-15.5) Hematocrit 34.1 % (36.0-47.0) Mean Corpuscular Volume 98 fL (79-100) Mean Corpuscular Hemoglobin 34 pg (25-35) Mean Corpuscular Hemoglobin Concent 34 g/dL (31-37) Red Cell Distribution Width 12.2 % (11.5-14.5) Platelet Count 207 x10^3/uL (140-400) Neutrophils (%) (Auto) 82 % (31-73) Lymphocytes (%) (Auto) 7 % (24-48) Monocytes (%) (Auto) 11 % (0-9) Eosinophils (%) (Auto) 0 % (0-3) Basophils (%) (Auto) 0 % (0-3) Neutrophils # (Auto) 7.9 x10^3/uL (1.8-7.7) Lymphocytes # (Auto) 0.6 x10^3/uL (1.0-4.8) Monocytes # (Auto) 1.1 x10^3/uL (0.0-1.1) Eosinophils # (Auto) 0.0 x10^3/uL (0.0-0.7) Basophils # (Auto) 0.0 x10^3/uL (0.0-0.2) Sodium Level 132 mmol/L (136-145) Potassium Level 3.7 mmol/L (3.5-5.1) Chloride Level 96 mmol/L (98-107) Carbon Dioxide Level 32 mmol/L (21-32) Anion Gap 4 (6-14) Blood Urea Nitrogen 5 mg/dL (7-20) Creatinine 0.5 mg/dL (0.6-1.0) Estimated GFR (Cockcroft-Gault) 120.3 BUN/Creatinine Ratio 10 (6-20) Glucose Level 108 mg/dL (70-99) Calcium Level 8.5 mg/dL (8.5-10.1) Total Bilirubin 1.0 mg/dL (0.2-1.0) Aspartate Amino Transf (AST/SGOT) 118 U/L (15-37) Alanine Aminotransferase (ALT/SGPT) 125 U/L (14-59) Alkaline Phosphatase 53 U/L (46-116) Total Protein 6.0 g/dL (6.4-8.2) Albumin 2.7 g/dL (3.4-5.0) Albumin/Globulin Ratio 0.8 (1.0-1.7) Test 04/12/20 11:18 04/12/20 16:10 04/12/20 20:40 Glucose (Fingerstick) 143 mg/dL (70-99) 138 mg/dL (70-99) 149 mg/dL (70-99) Laboratory Tests Test 04/12/20 16:10 04/12/20 20:40 Glucose (Fingerstick) 138 mg/dL (70-99) 149 mg/dL (70-99) Brief Hospital Course Ms. Goodman is a 74 old female, admi with abd pain, taken to OR for extensive Abd surg Status post Emelina fundoplication for large paraesophageal hernia, Laparoscopic repair Massive paraesophageal hernia with gastroesophageal reflux disease she did well post op, pain better, some atelectasis, str improved , eating OK Discharge Information Condition at Discharge: Improved Follow Up: Weeks Disposition/Orders: D/C to Home w/ HH Scheduled Clonazepam (Clonazepam) 1 Mg Tablet, 1 MG PO DAILY, (Reported) Entered as Reported by: TOMEKA LEA on 05/02/17 1500 Last Action: Reviewed on 04/09/202000 by SADE REYES Diclofenac Sodium (Voltaren) 100 Gm Gel..gram., 1 GM TP QID for pain for 30 Days, #1 Ref 0 (Reported) apply to affected area(s) Entered as Reported by: SADE REYES on 04/09/202000 Last Action: Continued on 04/09/202020 by SADE REYES Scheduled PRN Acetaminophen (Tylenol) 325 Mg Tablet, 2 TAB PO TID PRN for PAIN, #60 Prescribed by: RAN FITCH on 04/13/20 1154 Patient Instructions Patient Instructions > 30 min 2 visits discussed wth family will f/u with Dr. Gonzalez, 1 week Justicifation of Admission Dx: Justifications for Admission: Justification of Admission Dx: Yes RAN FITCH MD Apr 13, 2020 11:53
[2020-04-13] MEDS ORDERED: OXYC1TAB15 PO (11:54)
[2020-04-13] MEDS ORDERED: ACET325T9 PO (11:54)
--- NOTE | 2020-04-13 12:50 | NUR ---
Pt's pharmacy called to cancel electronic order for Percocet.
--- NOTE | 2020-04-13 13:30 | NUR ---
Pt. discharged to home with Rx, pt's Venezuelan speaking Granddaughter Lucila and pt verbalized understanding of discharge instructions. Pt. also sent home with full liquid diet education.
== END 2020-04-13 13:36 | disposition home or self-care (01) | DRG 327 ==
LOC: SURG 09:03 → 4 NORTH 16:27 → INTOOBSV 16:27 → OBSVTOIN 04-11 21:31
PROVIDERS: ADMIT Surgery; ATTEND Surgery
PROC: 0DV44ZZ Restriction of Esophagogastric Junction, Percutaneous Endoscopic Approach (ICD-10-PCS; 2020-04-09)
PROC: 0BUT4JZ Supplement Diaphragm with Synthetic Substitute, Percutaneous Endoscopic Approach (ICD-10-PCS; principal; 2020-04-09 11:00)
DX: K44.9 Diaphragmatic hernia without obstruction or gangrene (principal); J98.11 Atelectasis; K57.30 Diverticulosis of large intestine without perforation or abscess without bleeding; E78.5 Hyperlipidemia, unspecified; I10 Essential (primary) hypertension; K29.50 Unspecified chronic gastritis without bleeding; M19.90 Unspecified osteoarthritis, unspecified site; R73.9 Hyperglycemia, unspecified; F41.9 Anxiety disorder, unspecified; K21.9 Gastro-esophageal reflux disease without esophagitis; Z82.49 Family history of ischemic heart disease and other diseases of the circulatory system; Z90.49 Acquired absence of other specified parts of digestive tract
CPT/HCPCS: 36415; 71045; 80048; 80053; 82962; 83036; 85025; C1781; G0378; G0379; J0690; J0780; J1100; J1170; J1200; J1815; J1940; J2250; J2270; J2370; J2405; J2704; J2710; J3010; J3490; 97110-GP; 97116-GP

== ENCOUNTER → 2021-05-05 | Outpatient (CLI) | payer OTHER ==
[~2021-05-05] MED LIST changes: +ACET325T9 PO; -BUPIVACAINE-EPI 0.5%-1:200000 MPF 30 ML VIAL. INJ ONE; +DICL100G54 TP; -HYDROmorphone 2 MG/ML VIAL IVP PRN; -LIDOCAINE 1% PF 2 ML VIAL. ID PRN; -ONDANSETRON PF 4 MG/2 ML VIAL. IVP PRN; +OXYC1TAB15 PO; -PROCHLORPERAZINE 10 MG/2 ML VIAL. IVP PRN; -ceFAZolin SODIUM IV Push 1 GM VIAL. IVP ONE; -fentaNYL PF VIAL 100 MCG/2 ML VIAL IVP PRN
--- NOTE | 2021-05-05 16:45 | CARD ---
MR#: [id number] Date of Study: 05/05/2021 Ordering Physician: AIYANA BOYER, Referring Physician: AIYANA BOYER, Tech: Merlene Navarro [facility] APPROVED REPORT EXAM: Two-dimensional and M-mode echocardiogram with Doppler and color Doppler. Other Information Quality : AverageHR: 68bpm Rhythm : NSR INDICATION Hypertension/HCVD RISK FACTORS Hypertension 2D DIMENSIONS RVDd2.5 (2.9-3.5cm)Left Atrium(2D)2.4 (1.6-4.0cm) IVSd0.8 (0.7-1.1cm)Aortic Root(2D)3.1 (2.0-3.7cm) LVDd3.7 (3.9-5.9cm)LVOT Diameter1.7 (1.8-2.4cm) PWd0.9 (0.7-1.1cm)LVDs2.2 (2.5-4.0cm) FS (%) 40.7 %SV42.2 ml LVEF(%)72.3 (>50%) Aortic Valve AoV Peak Ramses.152.2cm/sAoV VTI32.2cm AO Peak GR.9.3mmHgLVOT Peak Ramses.106.6cm/s AO Mean GR.4mmHgAVA (VMAX)1.68cm2 AI P 1/2 [id number] Mitral Valve MV E Pqwwedoa73.0cm/sMV DECEL DFFU442ar MV A Zaubrynx64.2cm/sE/A Ratio0.9 Pulmonary Valve PV Peak Kqtztxht868.2cm/s Tricuspid Valve TR P. Harmpebd983fg/sTR Peak Gr.26mmHg LEFT VENTRICLE The left ventricle is normal size. There is normal left ventricular wall thickness. The left ventricu lar systolic function is normal. Estimated ejection fraction 60%. There is normal LV segmental wall m otion. Transmitral Doppler flow pattern is Grade I-abnormal relaxation pattern. RIGHT VENTRICLE The right ventricle is normal size. There is normal right ventricular wall thickness. The right ventr icular systolic function is normal. ATRIA The left atrium size is normal. The right atrium size is normal. The interatrial septum is intact wit h no evidence for an atrial septal defect or patent foramen ovale as noted on 2-D or Doppler imaging. AORTIC VALVE The aortic valve is normal in structure and function. Doppler and Color Flow revealed trace aortic re gurgitation. There is no significant aortic valvular stenosis. MITRAL VALVE The mitral valve is normal in structure and function. There is no evidence of mitral valve prolapse. There is no mitral valve stenosis. Doppler and Color-flow revealed mild mitral regurgitation. TRICUSPID VALVE The tricuspid valve is normal in structure and function. Doppler and Color Flow revealed no tricuspid valve regurgitation noted. There is no tricuspid valve stenosis. PULMONIC VALVE The pulmonary valve is normal in structure and function. Doppler and Color Flow revealed no pulmonic valvular regurgitation. GREAT VESSELS The aortic root is normal in size. The ascending aorta is normal in size. The IVC is normal in size a nd collapses >50% with inspiration. PERICARDIAL EFFUSION There is no evidence of significant pericardial effusion. Critical Notification Critical Value: No <Conclusion> The left ventricular systolic function is normal. Estimated ejection fraction 60%. There is normal LV segmental wall motion. Transmitral Doppler flow pattern is Grade I-abnormal relaxation pattern. Mild mitral regurgitation. There is no evidence of significant pericardial effusion. Signed by : Aiyana Boyer, Electronically Approved : 05/05/2021 16:44:38
== END ==
LOC: ECHO 13:58
PROVIDERS: ATTEND Internal Medicine Cardiovascular Disease
DX: I34.0 Nonrheumatic mitral (valve) insufficiency (principal); I10 Essential (primary) hypertension
CPT/HCPCS: 93306

== ENCOUNTER 2021-07-20 08:16 | Inpatient (IN) | payer OTHER ==
[~2021-07-20] VITALS: Ht 142.2 cm; Wt 54.5 kg
[2021-07-20] MEDS ORDERED: ONDANSETRON PF 4 MG/2 ML VIAL. IVP ONE (09:00)
[2021-07-20] MEDS ORDERED: IV NORMAL SALINE 1000ML BAG 1,000 ML IV ONE (09:00)
[2021-07-20] MEDS ORDERED: MORPHINE SULFATE 2 MG/ML INJ. IVP ONE (09:00)
[2021-07-20] MEDS ORDERED: CONTRAST GIVEN. MC PRN (09:00)
[2021-07-20] MEDS ORDERED: IOHEXOL 300 MG/ML 100ML VIAL. IV ONE (09:00)
[2021-07-20] MEDS ORDERED: FAMOTIDINE 20 MG/2 ML VIAL IVP ONE (09:00)
[2021-07-20 09:01] LABS: BASO % 1 % (0-3); EOS # 0.1 x10^3/uL (0.0-0.7); EOS % 3 % (0-3); HEMATOCRIT 41.5 % (36.0-47.0); HEMOGLOBIN 13.4 g/dL (12.0-15.5); LYMPH # 1.6 x10^3/uL (1.0-4.8); LYMPH % 45 % (24-48); MEAN CORPUSCULAR HEMOGLOBIN 31 pg (25-35); MEAN CORPUSCULAR HGB CONC 32 g/dL (31-37); MEAN CORPUSCULAR VOLUME 96 fL (79-100); MONO # 0.6 x10^3/uL (0.0-1.1); MONO % 18 % (0-9); NEUT # 1.2 x10^3/uL (1.8-7.7); NEUT % 33 % (31-73); PLATELET COUNT 278 x10^3/uL (140-400); RED BLOOD COUNT 4.33 x10^6/uL (3.50-5.40); RED CELL DISTRIBUTION WIDTH 12.6 % (11.5-14.5); WHITE BLOOD COUNT 3.6 x10^3/uL (4.0-11.0)
--- NOTE | 2021-07-20 09:03 | PHYS DOC ---
Past Medical History Past Medical History: Anxiety, Other Additional Past Medical Histor: ULCERS Past Surgical History: Cholecystectomy, Other Additional Past Surgical Histo: EYE SX Smoking Status: Never Smoker Alcohol Use: None Adult General Chief Complaint Chief Complaint: NAUSEA/VOMITING/DIARRHEA HPI HPI Patient is a 76 year old female who presents with nausea, vomiting, abdominal pain, diarrhea and a fever. Symptoms started a couple days ago. The patient has generalized crampy abdominal pain and has had several loose stools. She has been nauseated today. She had a fever yesterday but none this morning. The patient is here with her granddaughter who has similar symptoms. Review of Systems Review of Systems Constitutional: Denies fever Eyes: Denies change in visual acuity or eye pain HENT: Denies sore throat Respiratory: Denies shortness of breath Cardiovascular: Denies chest pain GI: Denies abd pain : Denies dysuria Musculoskeletal: Denies back or extremity injury Integument: Denies rash or skin lesions Neurologic: Denies headache, focal weakness or sensory changes All other systems were reviewed and found to be within normal limits, except as documented in this note. Current Medications Current Medications Current Medications Medications (Trade) Dose Ordered Sig/Alo Start Time Stop Time Status Last Admin Dose Admin Famotidine (Pepcid Vial) 20 mg 1X ONCE 07/20/21 09:00 07/20/21 09:01 DC 07/20/21 09:17 20 MG Info (CONTRAST GIVEN -- Rx MONITORING) 1 each PRN DAILY PRN 07/20/21 09:00 07/22/21 08:59 Iohexol (Omnipaque 300 Mg/ml) 75 ml 1X ONCE 07/20/21 09:00 07/20/21 09:01 DC 07/20/21 09:00 75 ML Morphine Sulfate (Morphine Sulfate) 2 mg 1X ONCE 07/20/21 09:00 07/20/21 09:01 DC 07/20/21 09:22 2 MG Ondansetron HCl (Zofran) 4 mg 1X ONCE 07/20/21 09:00 07/20/21 09:01 DC 07/20/21 09:16 4 MG Sodium Chloride 1,000 ml @ 1,000 mls/hr 1X ONCE 07/20/21 09:00 07/20/21 09:59 DC 07/20/21 09:13 1,000 MLS/HR Allergies Allergies Allergies Coded Allergies Type Severity Reaction Last Updated Verified No Known Drug Allergies 07/20/21 No Physical Exam Physical Exam Constitutional: Well developed, well nourished, no acute distress, non-toxic appearance. HENT: Normocephalic, atraumatic, bilateral external ears normal, mucosa moist, nose normal. Eyes: EOMI, conjunctiva normal, no discharge. Neck: Normal range of motion, supple, no stridor, no meningeal signs. Cardiovascular: Regular rate and rhythm Lungs & Thorax: Bilateral breath sounds clear to auscultation Abdomen: Soft, generalized tenderness, no obvious masses Skin: Warm, dry, no erythema, no rash. Extremities: No tenderness, no cyanosis, no clubbing, ROM intact, no edema. Neurologic: Alert and oriented, normal motor function, normal sensory function, no focal deficits noted. Psychologic: Affect normal, judgement normal, mood normal. Current Patient Data Vital Signs Vital Signs Date Time Temp Pulse Resp B/P (MAP) Pulse Ox O2 Delivery O2 Flow Rate FiO2 07/20/21 09:22 16 97 Room Air 07/20/21 08:29 97.7 78 137/72 (93) 97.7 Lab Values Laboratory Tests Test 07/20/21 08:29 07/20/21 08:50 07/20/21 10:30 Urine Collection Type Unknown Urine Color (Auto) Colorless Urine Turbidity Clear Urine pH (Auto) 7.0 (<5.0-8.0) Urine Specific [place] 1.005 (1.000-1.030) Urine Protein (Auto) Negative mg/dL (Negative) Urine Glucose (Auto)(UA) Negative mg/dL (Negative) Urine Ketones (Auto) Negative mg/dL (Negative) Urine Blood (Auto) Negative (Negative) Urine Nitrite Negative (Negative) Urine Bilirubin (Auto) Negative (Negative) Urine Urobilinogen (Auto) Normal mg/dL (Normal) Urine Leukocyte Esterase (Auto) Moderate (Negative) Urine RBC 0 /HPF (0-2) Urine WBC 5-10 /HPF (0-4) Urine Squamous Epithelial Cells Mod /LPF Urine Bacteria Few /HPF (0-FEW) White Blood Count 3.6 x10^3/uL (4.0-11.0) L Red Blood Count 4.33 x10^6/uL (3.50-5.40) Hemoglobin 13.4 g/dL (12.0-15.5) Hematocrit 41.5 % (36.0-47.0) Mean Corpuscular Volume 96 fL (79-100) Mean Corpuscular Hemoglobin 31 pg (25-35) Mean Corpuscular Hemoglobin Concent 32 g/dL (31-37) Red Cell Distribution Width 12.6 % (11.5-14.5) Platelet Count 278 x10^3/uL (140-400) Neutrophils (%) (Auto) 33 % (31-73) Lymphocytes (%) (Auto) 45 % (24-48) Monocytes (%) (Auto) 18 % (0-9) H Eosinophils (%) (Auto) 3 % (0-3) Basophils (%) (Auto) 1 % (0-3) Neutrophils # (Auto) 1.2 x10^3/uL (1.8-7.7) L Lymphocytes # (Auto) 1.6 x10^3/uL (1.0-4.8) Monocytes # (Auto) 0.6 x10^3/uL (0.0-1.1) Eosinophils # (Auto) 0.1 x10^3/uL (0.0-0.7) Basophils # (Auto) 0.0 x10^3/uL (0.0-0.2) Sodium Level 134 mmol/L (136-145) L Potassium Level 4.6 mmol/L (3.5-5.1) Chloride Level 101 mmol/L (98-107) Carbon Dioxide Level 27 mmol/L (21-32) Anion Gap 6 (6-14) Blood Urea Nitrogen 3 mg/dL (7-20) L Creatinine 0.6 mg/dL (0.6-1.0) Estimated GFR (Cockcroft-Gault) 96.9 BUN/Creatinine Ratio 5 (6-20) L Glucose Level 110 mg/dL (70-99) H Lactic Acid Level 1.1 mmol/L (0.4-2.0) Calcium Level 7.0 mg/dL (8.5-10.1) L Magnesium Level 2.6 mg/dL (1.8-2.4) H Total Bilirubin 0.2 mg/dL (0.2-1.0) Aspartate Amino Transferase (AST) 34 U/L (15-37) Alanine Aminotransferase (ALT) 28 U/L (14-59) Alkaline Phosphatase 85 U/L (46-116) Troponin I High Sensitivity 4 ng/L (4-50) EX-Bee-U-Type Natriuretic Peptide 74 pg/mL (0-449) Total Protein 6.9 g/dL (6.4-8.2) Albumin 3.5 g/dL (3.4-5.0) Albumin/Globulin Ratio 1.0 (1.0-1.7) Lipase 98 U/L (73-393) Influenza Type A Antigen Negative (NEGATIVE) Influenza Type B Antigen Negative (NEGATIVE) SARS-CoV-2 Antigen (Rapid) Negative (NEGATIVE) Laboratory Tests 07/20/21 08:50 Laboratory Tests 07/20/21 08:50 EKG EKG [] Interpretation Time: Twelve-lead EKG demonstrates a sinus rhythm with a rate of 74. SD, QRS and QT corrected within normal limits. No ST segment elevation or depression. Radiology/Procedures Radiology/Procedures [] Impressions: PATIENT: MARCY MARSHALL MACCOUNT: [id number]#: [id number] : 1945 LOCATION: ER AGE: 76 SEX: F EXAM STATUS: REG ER ORD. PHYSICIAN: JOHN GAMBOA MD REASON: Abdomen pain PROCEDURE: CT ABD PELV W/ IV CONTRST ONLY Exam: CT abdomen/pelvis with intravenous contrast Indication: Abdominal pain Comparison: CT abdomen pelvis 03/01/2020 Technique: Helical CT imaging performed of the abdomen and pelvis after the intravenous administration of 75 mL Omnipaque 300 contrast. Sagittal and coronal reformats were obtained. One or more of the following individualized dose reduction techniques were utilized for this examination: 1. Automated exposure control 2. Adjustment of the mA and/or kV according to patient size 3. Use of iterative reconstruction technique. Findings: Lower chest: There is mild scarring or atelectasis the lung bases. There has been interval hiatal hernia repair. The heart is normal in size. Liver: The liver is normal in size. No focal lesion. Gallbladder/Biliary Tree: The gallbladder is surgically absent. Slightly increased mild dilation common bile duct and prominent intrahepatic bile ducts. Pancreas: There is slightly increased mild prominence of the main pancreatic duct in the pancreatic head. The pancreas otherwise normal in appearance. Spleen: No splenomegaly. Adrenal Glands: Normal. Kidneys/Ureters/Bladder: Kidneys are normal in size and enhance symmetrically. No hydronephrosis. Ureters and bladder are normal. Reproductive Organs: Uterus is atrophic. A pessary device is in the vagina. No adnexal mass. Stomach, small bowel, and colon: There are surgical changes of a hiatal hernia repair. There is new mild dilation of fluid-filled mid to distal small bowel measuring up to 3.2 cm. No discrete transition point. The colon is mostly decompressed. There is mild colonic diverticulosis. There are loops of small bowel anterior to the transverse colon, which may be postsurgical. Vasculature: Abdominal aorta is normal in caliber. There is mild calcified aortoiliac atherosclerosis. Lymph Nodes: No lymphadenopathy. Peritoneum and retroperitoneum: No free fluid or free air. Bones: No acute osseous abnormality. The bones are diffusely demineralized. There is moderate degenerative disc disease. Mild levoscoliosis of the lumbar spine. Miscellaneous: There are bilateral fat-containing inguinal hernias. IMPRESSION: 1. New surgical changes of hiatal hernia repair. 2. There are new mildly dilated loops of small bowel suspicious for small bowel obstruction. No discrete transition point. 3. Post cholecystectomy. There is slightly increased dilation of common bile duct and prominence of the main pancreatic duct in the pancreatic head. Recommend attention on follow-up or consider MRCP to exclude underlying stricture lesion of the ampulla if clinically indicated. 4. Fat-containing bilateral inguinal hernias. Electronically signed by: Kellen Parson MD (07/20/2021 10:38 AM) [id number] DICTATED and SIGNED BY: KELLEN PARSON MD DATE: 07/20/21 1021 Course & Med Decision Making Course & Med Decision Making Pertinent Labs and Imaging studies reviewed. (See chart for details) [] This is a 76-year-old female with nausea and vomiting. CT demonstrates findings consistent with a small bowel obstruction. We will place an NG tube and keep the patient in the hospital, at this time she is in stable condition. Dragon Disclaimer Dragon Disclaimer This electronic medical record was generated, in whole or in part, using a voice recognition dictation system. Departure Departure Impression: Primary Impression: Small bowel obstruction Disposition: 09 ADMITTED INPATIENT Condition: GOOD Referrals: OTTONIEL GOULD MD (PCP) JOHN GAMBOA MD Jul 20, 2021 09:03
[2021-07-20 09:11] LABS: BACTERIA,URINE FEW /HPF (0-FEW); RBC,URINE 0 /HPF (0-2)
[2021-07-20 09:20] LABS: CREATININE 0.6 mg/dL (0.6-1.0); GFR 96.9; POTASSIUM 4.6 mmol/L (3.5-5.1)
[2021-07-20 09:25] LABS: ALBUMIN 3.5 g/dL (3.4-5.0); MAGNESIUM 2.6 mg/dL (1.8-2.4); TOTAL BILIRUBIN 0.2 mg/dL (0.2-1.0); TOTAL PROTEIN 6.9 g/dL (6.4-8.2)
--- NOTE | 2021-07-20 10:40 | RAD ---
Exam: CT abdomen/pelvis with intravenous contrast Indication: Abdominal pain Comparison: CT abdomen pelvis 03/01/2020 Technique: Helical CT imaging performed of the abdomen and pelvis after the intravenous administratio n of 75 mL Omnipaque 300 contrast. Sagittal and coronal reformats were obtained. One or more of the following individualized dose reduction techniques were utilized for this examinat ion: 1. Automated exposure control 2. Adjustment of the mA and/or kV according to patient size 3. Use of iterative reconstruction technique. Findings: Lower chest: There is mild scarring or atelectasis the lung bases. There has been interval hiatal her cl repair. The heart is normal in size. Liver: The liver is normal in size. No focal lesion. Gallbladder/Biliary Tree: The gallbladder is surgically absent. Slightly increased mild dilation comm on bile duct and prominent intrahepatic bile ducts. Pancreas: There is slightly increased mild prominence of the main pancreatic duct in the pancreatic h ead. The pancreas otherwise normal in appearance. Spleen: No splenomegaly. Adrenal Glands: Normal. Kidneys/Ureters/Bladder: Kidneys are normal in size and enhance symmetrically. No hydronephrosis. Ure ters and bladder are normal. Reproductive Organs: Uterus is atrophic. A pessary device is in the vagina. No adnexal mass. Stomach, small bowel, and colon: There are surgical changes of a hiatal hernia repair. There is new m ild dilation of fluid-filled mid to distal small bowel measuring up to 3.2 cm. No discrete transition point. The colon is mostly decompressed. There is mild colonic diverticulosis. There are loops of sm all bowel anterior to the transverse colon, which may be postsurgical. Vasculature: Abdominal aorta is normal in caliber. There is mild calcified aortoiliac atherosclerosis . Lymph Nodes: No lymphadenopathy. Peritoneum and retroperitoneum: No free fluid or free air. Bones: No acute osseous abnormality. The bones are diffusely demineralized. There is moderate degener ative disc disease. Mild levoscoliosis of the lumbar spine. Miscellaneous: There are bilateral fat-containing inguinal hernias. IMPRESSION: 1. New surgical changes of hiatal hernia repair. 2. There are new mildly dilated loops of small bowel suspicious for small bowel obstruction. No disc rete transition point. 3. Post cholecystectomy. There is slightly increased dilation of common bile duct and prominence of the main pancreatic duct in the pancreatic head. Recommend attention on follow-up or consider MRCP to exclude underlying stricture lesion of the ampulla if clinically indicated. 4. Fat-containing bilateral inguinal hernias. Electronically signed by: Kellen Parson MD (07/20/2021 10:38 AM) [id number]
[2021-07-20 10:58] LABS: INFLUENZA A PATIENT NEGATIVE (NEGATIVE); INFLUENZA B PATIENT NEGATIVE (NEGATIVE)
[2021-07-20] MEDS ORDERED: ACETAMINOPHEN 325 MG TABLET. PO PRN (12:30)
[2021-07-20] MEDS: DICLOFENAC SODIUM 1% TOPICAL GEL 100GM TUBE. TP SCH ×3 (13:00→21:00)
[2021-07-20] MEDS: clonazePAM 0.5 MG TABLET PO SCH (13:12)
[2021-07-20] MEDS: cefTRIAXone IV Push 1 GM VIAL. IVP SCH (13:13)
--- NOTE | 2021-07-20 13:41 | EKG ---
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
--- NOTE | 2021-07-20 14:26 | PDOC2 ---
GI CONSULT Date of Service: DATE: 07/20/21 TIME: 14:06 Reason For Consult: SBO? HPI: HPI: 76 y/o female known to us. Presented to ER with couple days of nausea and d iarrhea. Difficult to vomit as post-Emelina. Does describe a prodromal illness with achiness and malaise prior to onset of other issues. Grand-daughter apparently has similar illness. On CT, question was raised re: SBO and we were asked to see. Denies pain. Seen here in 2019 for UGI bleed due to NSAID-induced ulcers. Biopsies for H.pylori negative. Large HH noted at EGD; ultimately repaired by Dr. Lake with fundoplication. Has some heartburn history, apparently not on antisecretory now. Prior cholecystectomy. No h/o liver or pancreatic issues. No tobacco or alcohol use. Typically no diarrhea or constipation. No prior colonoscopy. PMH: PMH: Anxiety, cataracts. S/p oliverio, Emelina, ECCE. Social History: Smoke: No ALCOHOL: none Drugs: None ROS: GEN: Admits fevers, chills, no sweats HEENT: Denies blurred vision, sore throat CV: Denies chest pain RESP: Denies shortness of air, cough GI: Per HPI : Denies hematuria, dysuria ENDO: Denies weight changes NEURO: Denies confusion, dizziness MSK: Denies weakness, joint pain/swelling SKIN: Denies jaundice, pruritus Vitals: Vitals: Vital Signs Date Time Temp Pulse Resp B/P (MAP) Pulse Ox O2 Delivery O2 Flow Rate FiO2 07/20/21 12:10 74 16 159/74 (102) 99 Room Air 07/20/21 08:29 97.7 97.7 Labs: Labs: Laboratory Tests Test 07/20/21 08:29 07/20/21 08:50 07/20/21 10:30 Urine Collection Type Unknown Urine Color (Auto) Colorless Urine Turbidity Clear Urine pH (Auto) 7.0 (<5.0-8.0) Urine Specific [place] 1.005 (1.000-1.030) Urine Protein (Auto) Negative mg/dL (Negative) Urine Glucose (Auto)(UA) Negative mg/dL (Negative) Urine Ketones (Auto) Negative mg/dL (Negative) Urine Blood (Auto) Negative (Negative) Urine Nitrite Negative (Negative) Urine Bilirubin (Auto) Negative (Negative) Urine Urobilinogen (Auto) Normal mg/dL (Normal) Urine Leukocyte Esterase (Auto) Moderate (Negative) Urine RBC 0 /HPF (0-2) Urine WBC 5-10 /HPF (0-4) Urine Squamous Epithelial Cells Mod /LPF Urine Bacteria Few /HPF (0-FEW) White Blood Count 3.6 x10^3/uL (4.0-11.0) Red Blood Count 4.33 x10^6/uL (3.50-5.40) Hemoglobin 13.4 g/dL (12.0-15.5) Hematocrit 41.5 % (36.0-47.0) Mean Corpuscular Volume 96 fL (79-100) Mean Corpuscular Hemoglobin 31 pg (25-35) Mean Corpuscular Hemoglobin Concent 32 g/dL (31-37) Red Cell Distribution Width 12.6 % (11.5-14.5) Platelet Count 278 x10^3/uL (140-400) Neutrophils (%) (Auto) 33 % (31-73) Lymphocytes (%) (Auto) 45 % (24-48) Monocytes (%) (Auto) 18 % (0-9) Eosinophils (%) (Auto) 3 % (0-3) Basophils (%) (Auto) 1 % (0-3) Neutrophils # (Auto) 1.2 x10^3/uL (1.8-7.7) Lymphocytes # (Auto) 1.6 x10^3/uL (1.0-4.8) Monocytes # (Auto) 0.6 x10^3/uL (0.0-1.1) Eosinophils # (Auto) 0.1 x10^3/uL (0.0-0.7) Basophils # (Auto) 0.0 x10^3/uL (0.0-0.2) Sodium Level 134 mmol/L (136-145) Potassium Level 4.6 mmol/L (3.5-5.1) Chloride Level 101 mmol/L (98-107) Carbon Dioxide Level 27 mmol/L (21-32) Anion Gap 6 (6-14) Blood Urea Nitrogen 3 mg/dL (7-20) Creatinine 0.6 mg/dL (0.6-1.0) Estimated GFR (Cockcroft-Gault) 96.9 BUN/Creatinine Ratio 5 (6-20) Glucose Level 110 mg/dL (70-99) Lactic Acid Level 1.1 mmol/L (0.4-2.0) Calcium Level 7.0 mg/dL (8.5-10.1) Magnesium Level 2.6 mg/dL (1.8-2.4) Total Bilirubin 0.2 mg/dL (0.2-1.0) Aspartate Amino Transf (AST/SGOT) 34 U/L (15-37) Alanine Aminotransferase (ALT/SGPT) 28 U/L (14-59) Alkaline Phosphatase 85 U/L (46-116) Troponin I High Sensitivity 4 ng/L (4-50) JR-Evj-C-Type Natriuretic Peptide 74 pg/mL (0-449) Total Protein 6.9 g/dL (6.4-8.2) Albumin 3.5 g/dL (3.4-5.0) Albumin/Globulin Ratio 1.0 (1.0-1.7) Lipase 98 U/L (73-393) Influenza Type A Antigen Negative (NEGATIVE) Influenza Type B Antigen Negative (NEGATIVE) SARS-CoV-2 Antigen (Rapid) Negative (NEGATIVE) Allergies: Coded Allergies: No Known Drug Allergies (Unverified , 07/20/21) Medications: Current Medications Medications (Trade) Dose Ordered Sig/Alo Route PRN Reason Start Time Stop Time Status Last Admin Dose Admin Sodium Chloride 1,000 ml @ 1,000 mls/hr 1X ONCE IV 07/20/21 09:00 07/20/21 09:59 DC 07/20/21 09:13 Ondansetron HCl (Zofran) 4 mg 1X ONCE IVP 07/20/21 09:00 07/20/21 09:01 DC 07/20/21 09:16 Famotidine (Pepcid Vial) 20 mg 1X ONCE IVP 07/20/21 09:00 07/20/21 09:01 DC 07/20/21 09:17 Morphine Sulfate (Morphine Sulfate) 2 mg 1X ONCE IVP 07/20/21 09:00 07/20/21 09:01 DC 07/20/21 09:22 Iohexol (Omnipaque 300 Mg/ml) 75 ml 1X ONCE IV 07/20/21 09:00 07/20/21 09:01 DC 07/20/21 09:00 Ceftriaxone Sodium (Rocephin) 1 gm Q24H IVP 07/20/21 12:30 07/20/21 13:13 Clonazepam (KlonoPIN) 1 mg DAILY PO 07/20/21 13:00 07/20/21 13:12 Imaging: Imaging: On CT: IMPRESSION: 1. New surgical changes of hiatal hernia repair. 2. There are new mildly dilated loops of small bowel suspicious for small bowel obstruction. No discrete transition point. 3. Post cholecystectomy. There is slightly increased dilation of common bile duct and prominence of the main pancreatic duct in the pancreatic head. Recommend attention on follow-up or consider MRCP to exclude underlying stricture lesion of the ampulla if clinically indicated. 4. Fat-containing bilateral inguinal hernias. --have reviewed study. Not to me convincing for SBO. Prominent bile duct likely "reservoir" effect post-oliverio. PE: GEN: NAD HEENT: Atraumatic, PERRLA LUNGS: CTAB HEART: RRR, no murmurs ABD: NABS, S/ND/NT, no masses EXTREMITY: No edema SKIN: No rashes, no jaundice NEURO/PSYCH: A & O 3 A/P: A/P: IMP: Suspect viral illness with prodrome, etc. and benign exam. H/o NSAID ulcers. H/o H.pylori? Mentioned in past, unconfirmed. Last biopsies here negative. S/p oliverio. H/o HH, post-fundoplication. REC: IVF's, on ice chips and observe with empiric PPI IV. If no progression of syndrome, feed and advance diet as tolerated. KUB in AM. As in the past, consider screening colonoscopy (she laughs when suggested). OTTONIEL JESSICA MD Jul 20, 2021 14:25
--- NOTE | 2021-07-20 14:56 | HP ---
DATE OF SERVICE: 07/20/2021 ADMIT DATE: 07/20/2021 CHIEF COMPLAINT: Nausea, vomiting, diarrhea. HISTORY OF PRESENT ILLNESS: The patient is a pleasant 76-year-old female who presented to the ER with a couple days of nausea, vomiting and diarrhea. She has associated crampiness. Rates her symptoms at 7/10. Food makes it worse, sitting still makes it better. I discussed the case with ER physician and the CAT scan is showing a possible small bowel obstruction. We are going to admit the patient and consult GI. PAST MEDICAL HISTORY AND PAST SURGICAL HISTORY: passery, anxiety, peptic ulcer disease, cholecystectomy, eye surgery. ALLERGIES: None. FAMILY HISTORY: Hypertension. SOCIAL HISTORY: She does not drink, smoke or take drugs. She is retired. She raised 4 children. MEDICATIONS: Reviewed, please refer to the MRAD. REVIEW OF SYSTEMS: GENERAL: No history of weight change, weakness or fevers. SKIN: No bruising, hair changes or rashes. EYES: No blurred, double or loss of vision. NOSE AND THROAT: No history of nosebleeds, hoarseness or sore throat. HEART: No history of palpitations, chest pain or shortness of breath on exertion. LUNGS: Denies cough, hemoptysis, wheezing or shortness of breath. GASTROINTESTINAL: She complains of nausea, vomiting, diarrhea and abdominal pain. GENITOURINARY: No history of frequency, urgency, hesitancy or nocturia. NEUROLOGIC: Denies history of numbness, tingling, tremor or weakness. PSYCHIATRIC: No history of panic, anxiety or depression. ENDOCRINE: No history of heat or cold intolerance, polyuria or polydipsia. EXTREMITIES: Denies muscle weakness, joint pain, pain on walking or stiffness. PHYSICAL EXAMINATION: VITALS: Within normal limits and are stable. GENERAL: No apparent distress. Alert and oriented. HEENT: Normocephalic atraumatic, external auditory canals are patent. EYES: Extraocular muscles are intact, pupils are equally round and reactive to light and accommodation. MUSCULOSKELETAL: Well developed, well nourished, good range of motion. ENDOCRINE: No thyromegaly was palpated. LYMPHATICS: No cervical chain or axillary nodes were noted. HEMATOPOIETIC: No bruising. NECK: Supple, no JVD, no thyromegaly was noted. LUNGS: Clear to auscultation in all lung [place] without rhonchi or wheezing. HEART: RRR, S1, S2 present. Peripheral pulses intact, no obvious murmurs were noted. ABDOMEN: Soft, nontender. Positive bowel sounds no organomegaly, normal bowel sounds. EXTREMITIES: Without any cyanosis, clubbing, or edema. Pedal pulses intact, Homans sign is negative. NEUROLOGIC: Normal speech, normal tone. A and O x 3, moves all extremities, no obvious focal deficits. PSYCHIATRIC: Normal affect, normal mood. Stable. SKIN: No ulcerations or rashes, good skin turgor, no jaundice. VASCULAR: Good capillary refill, neurovascular bundle appears to be intact. LABORATORY DATA: White count 3.6. Sodium is 134, glucose 110, magnesium a little high at 2.6, calcium a little low at 7. Urinalysis, moderate leukocyte esterase with 5-10 white cells. COVID testing and flu testing is negative. CT of the abdomen shows possible small bowel obstruction. ASSESSMENT AND PLAN: Nausea, vomiting, abdominal pain with small bowel obstruction with incidental finding of urinary tract infection. The patient is being able to start IV Rocephin. Consult GI. IV fluids, home meds. Deep venous thrombosis prophylaxis. Full Code. P.r.n. morphine, p.r.n. Zofran. [facility] DR: MAURO/antwon TID: [id number]
[2021-07-20 15:00] VITALS: BP 115/61
[2021-07-20] MEDS: IV DEXTROSE 5%-LACT RINGERS 1,000 ML IV SCH (16:38)
[2021-07-20] MEDS: ONDANSETRON PF 4 MG/2 ML VIAL. IVP PRN (16:43)
[2021-07-20] MEDS: PANTOPRAZOLE IV PUSH 40 MG VIAL. IVP SCH (16:51)
[2021-07-20 19:00] VITALS: BP 114/58
--- NOTE | 2021-07-20 19:28 | NUR ---
patient arrived to unit in wheelchair accompanied by her granddaughter. Patient is Welsh speaking. Her Granddaughter was helping translate.
[2021-07-20] MEDS: MORPHINE SULFATE 2 MG/ML INJ. IVP PRN (21:24)
[2021-07-20 23:00] VITALS: BP 115/59
[2021-07-21 03:00] VITALS: BP 111/54
[2021-07-21] MEDS: IV DEXTROSE 5%-LACT RINGERS 1,000 ML IV SCH ×3 (06:11→21:42)
[2021-07-21 07:00] VITALS: BP 117/56
[2021-07-21] MEDS: PANTOPRAZOLE IV PUSH 40 MG VIAL. IVP SCH (07:32)
[2021-07-21] MEDS: ONDANSETRON PF 4 MG/2 ML VIAL. IVP PRN (07:33)
[2021-07-21] MEDS: MORPHINE SULFATE 2 MG/ML INJ. IVP PRN (07:34)
[2021-07-21] MEDS: clonazePAM 0.5 MG TABLET PO SCH (07:39)
[2021-07-21 08:13] LABS: BASO % 1 % (0-3); EOS # 0.1 x10^3/uL (0.0-0.7); EOS % 2 % (0-3); HEMATOCRIT 38.7 % (36.0-47.0); HEMOGLOBIN 12.8 g/dL (12.0-15.5); LYMPH # 1.4 x10^3/uL (1.0-4.8); LYMPH % 50 % (24-48); MEAN CORPUSCULAR HEMOGLOBIN 32 pg (25-35); MEAN CORPUSCULAR HGB CONC 33 g/dL (31-37); MEAN CORPUSCULAR VOLUME 97 fL (79-100); MONO # 0.4 x10^3/uL (0.0-1.1); MONO % 13 % (0-9); NEUT % 35 % (31-73); PLATELET COUNT 285 x10^3/uL (140-400); RED CELL DISTRIBUTION WIDTH 12.6 % (11.5-14.5); WHITE BLOOD COUNT 2.8 x10^3/uL (4.0-11.0)
[2021-07-21 08:25] LABS: CREATININE 0.6 mg/dL (0.6-1.0); GFR 96.9; POTASSIUM 3.9 mmol/L (3.5-5.1)
[2021-07-21] MEDS: DICLOFENAC SODIUM 1% TOPICAL GEL 100GM TUBE. TP SCH ×4 (09:00→21:00)
--- NOTE | 2021-07-21 09:21 | PDOC ---
Date of Service: DATE: 07/21/21 TIME: 09:19 Subjective: Subjective: Family on phone to translate - pt feels better, denies n/v, denies abd pain, hasn't stooled. "Lots of gas." Objective: Vital Signs: Vital Signs Date Time Temp Pulse Resp B/P (MAP) Pulse Ox O2 Delivery O2 Flow Rate FiO2 07/21/21 08:04 Room Air 07/21/21 07:00 97.2 58 14 117/56 (76) 97 97.2 Labs: Laboratory Tests Test 07/20/21 10:30 07/21/21 07:20 Influenza Type A Antigen Negative Influenza Type B Antigen Negative SARS-CoV-2 Antigen (Rapid) Negative White Blood Count 2.8 x10^3/uL Red Blood Count 4.00 x10^6/uL Hemoglobin 12.8 g/dL Hematocrit 38.7 % Mean Corpuscular Volume 97 fL Mean Corpuscular Hemoglobin 32 pg Mean Corpuscular Hemoglobin Concent 33 g/dL Red Cell Distribution Width 12.6 % Platelet Count 285 x10^3/uL Neutrophils (%) (Auto) 35 % Lymphocytes (%) (Auto) 50 % Monocytes (%) (Auto) 13 % Eosinophils (%) (Auto) 2 % Basophils (%) (Auto) 1 % Neutrophils # (Auto) 1.0 x10^3/uL Lymphocytes # (Auto) 1.4 x10^3/uL Monocytes # (Auto) 0.4 x10^3/uL Eosinophils # (Auto) 0.1 x10^3/uL Basophils # (Auto) 0.0 x10^3/uL Sodium Level 138 mmol/L Potassium Level 3.9 mmol/L Chloride Level 105 mmol/L Carbon Dioxide Level 27 mmol/L Anion Gap 6 Blood Urea Nitrogen 3 mg/dL Creatinine 0.6 mg/dL Estimated GFR (Cockcroft-Gault) 96.9 Glucose Level 118 mg/dL Calcium Level 7.0 mg/dL CULTURE URINE Final NO GROWTH ON 07/21/21 at 0828 PE: GEN: NAD LUNGS: CTAB HEART: RRR ABD: NABS, S/ND/NT NEURO/PSYCH: A & O 3 - speaks Tanzanian A/P: Nausea, diarrhea - resolved, viral illness suspected Abnormal CT -- Await KUB. Probably can try diet. Justicifation of Admission Dx: Justifications for Admission: Justification of Admission Dx: Yes NEY APODACA Jul 21, 2021 09:21
[2021-07-21 11:00] VITALS: BP 138/60
--- NOTE | 2021-07-21 11:01 | PDOC ---
[facility] [facility] PROGRESS NOTE Date of Service DOS: DATE: 07/21/21 TIME: 11:00 Chief Complaint Chief Complaint Probable viral gastroenteritis Nausea vomiting next abdominal pain History of the following; passery, anxiety, peptic ulcer disease, cholecystectomy, eye surgery. History of Present Illness History of Present Illness 07/21/2021 Patient seen and examined Discussed with RN Discussed with case management Chart reviewed Patient seems to be doing better Hope to advance her diet today and discharge Vitals/I&O Vitals/I&O: Vital Signs Date Time Temp Pulse Resp B/P (MAP) Pulse Ox O2 Delivery O2 Flow Rate FiO2 07/21/21 08:04 Room Air 07/21/21 07:00 97.2 58 14 117/56 (76) 97 97.2 I & O 07/20/21 07/20/21 07/21/21 15:00 23:00 07:00 Intake Total 1000 ml 138 ml Balance 1000 ml 138 ml Physical Exam General: Alert Heart: Regular rate Lungs: Crackles Abdomen: Normal bowel sounds Extremities: No clubbing Skin: No rashes Labs Labs: Laboratory Tests Test 07/21/21 07:20 White Blood Count 2.8 x10^3/uL (4.0-11.0) Red Blood Count 4.00 x10^6/uL (3.50-5.40) Hemoglobin 12.8 g/dL (12.0-15.5) Hematocrit 38.7 % (36.0-47.0) Mean Corpuscular Volume 97 fL (79-100) Mean Corpuscular Hemoglobin 32 pg (25-35) Mean Corpuscular Hemoglobin Concent 33 g/dL (31-37) Red Cell Distribution Width 12.6 % (11.5-14.5) Platelet Count 285 x10^3/uL (140-400) Neutrophils (%) (Auto) 35 % (31-73) Lymphocytes (%) (Auto) 50 % (24-48) Monocytes (%) (Auto) 13 % (0-9) Eosinophils (%) (Auto) 2 % (0-3) Basophils (%) (Auto) 1 % (0-3) Neutrophils # (Auto) 1.0 x10^3/uL (1.8-7.7) Lymphocytes # (Auto) 1.4 x10^3/uL (1.0-4.8) Monocytes # (Auto) 0.4 x10^3/uL (0.0-1.1) Eosinophils # (Auto) 0.1 x10^3/uL (0.0-0.7) Basophils # (Auto) 0.0 x10^3/uL (0.0-0.2) Sodium Level 138 mmol/L (136-145) Potassium Level 3.9 mmol/L (3.5-5.1) Chloride Level 105 mmol/L (98-107) Carbon Dioxide Level 27 mmol/L (21-32) Anion Gap 6 (6-14) Blood Urea Nitrogen 3 mg/dL (7-20) Creatinine 0.6 mg/dL (0.6-1.0) Estimated GFR (Cockcroft-Gault) 96.9 Glucose Level 118 mg/dL (70-99) Calcium Level 7.0 mg/dL (8.5-10.1) Assessment and Plan Assessmemt and Plan Problems Medical Problems: (1) Small bowel obstruction Status: Acute Probable viral gastroenteritis Nausea vomiting next abdominal pain History of the following; passery, anxiety, peptic ulcer disease, cholecystectomy, eye surgery. Plan Hope to advance her diet and discharge For now continue the following; IV fluids As needed Zofran Home meds DVT prophylaxis Full code Comment Review of Relevant I have reviewed the following items rachana (where applicable) has been applied. Medications: Current Medications Medications (Trade) Dose Ordered Sig/Alo Route PRN Reason Start Time Stop Time Status Last Admin Dose Admin Ondansetron HCl (Zofran) 4 mg PRN Q8HRS PRN IVP NAUSEA/VOMITING 07/20/21 11:30 07/21/21 11:29 07/21/21 07:33 Morphine Sulfate (Morphine Sulfate) 2 mg PRN Q2HR PRN IVP PAIN 07/20/21 11:30 07/21/21 11:29 07/21/21 07:34 Ceftriaxone Sodium (Rocephin) 1 gm Q24H IVP 07/20/21 12:30 07/20/21 13:13 Clonazepam (KlonoPIN) 1 mg DAILY PO 07/20/21 13:00 07/20/21 13:12 Dextrose/Lactated Ringer's 1,000 ml @ 75 mls/hr [id number] IV 07/20/21 14:30 07/21/21 06:11 Pantoprazole Sodium (PROTONIX VIAL for IV PUSH) 40 mg DAILYAC IVP 07/20/21 15:00 07/21/21 07:32 Justifications for Admission Other Justification VICTORIA EATON III DO Jul 21, 2021 11:01
[2021-07-21] MEDS: cefTRIAXone IV Push 1 GM VIAL. IVP SCH (11:38)
--- NOTE | 2021-07-21 12:45 | RAD ---
KUB compared to CT scan of the abdomen and pelvis dated 07/20/2021 for small bowel obstruction follow- up. FINDINGS: There is redemonstration of air-filled loops of large and small bowel with decreased disten tion in conspicuity of the small bowel loops in subtly increased loculation of air within the large b owel. Findings are nonspecific and could relate to ileus or resolving obstruction. Severe degenerativ e changes throughout spine. Postsurgical changes of the gastroesophageal junction and in the gallblad jose fossa. IMPRESSION: 1. Improved appearance of the bowels today, nonspecific. Findings may relate to ileus or resolving sm all bowel obstruction. Electronically signed by: Ridge Shaikh MD (07/21/2021 12:42 PM) [id number]
--- NOTE | 2021-07-21 13:36 | NUR ---
Report given to Trinidad FRYE
[2021-07-21 15:00] VITALS: BP 116/46
[2021-07-21 19:00] VITALS: BP 134/66
[2021-07-21] MEDS ORDERED: clonazePAM 0.5 MG TABLET PO SCH (21:00)
[2021-07-21 23:01] VITALS: BP 135/64
[2021-07-22 03:00] VITALS: BP 124/68
[2021-07-22] MEDS: PANTOPRAZOLE IV PUSH 40 MG VIAL. IVP SCH (06:24)
[2021-07-22 07:00] VITALS: BP 123/96
[2021-07-22] MEDS: DICLOFENAC SODIUM 1% TOPICAL GEL 100GM TUBE. TP SCH ×2 (08:32→10:47)
--- NOTE | 2021-07-22 09:49 | PDOC ---
[facility] [facility] PROGRESS NOTE Date of Service DOS: DATE: 07/22/21 TIME: 09:48 Chief Complaint Chief Complaint Probable viral gastroenteritis Nausea vomiting next abdominal pain History of the following; passery, anxiety, peptic ulcer disease, cholecystectomy, eye surgery. History of Present Illness History of Present Illness 07/22/2021 Patient seen and examined Discussed with RN Chart reviewed She is up smiling wants to go home 07/21/2021 Patient seen and examined Discussed with RN Discussed with case management Chart reviewed Patient seems to be doing better Hope to advance her diet today and discharge Vitals/I&O Vitals/I&O: Vital Signs Date Time Temp Pulse Resp B/P (MAP) Pulse Ox O2 Delivery O2 Flow Rate FiO2 07/22/21 07:00 97.8 62 18 123/96 (105) 98 Room Air 97.8 Physical Exam General: Alert Heart: Regular rate Lungs: Clear Abdomen: Normal bowel sounds Extremities: No clubbing Skin: No rashes Assessment and Plan Assessmemt and Plan Problems Medical Problems: (1) Small bowel obstruction Status: Acute Probable viral gastroenteritis Nausea vomiting next abdominal pain History of the following; passery, anxiety, peptic ulcer disease, cholecystectomy, eye surgery. Plan Discharge see dictation Comment Review of Relevant I have reviewed the following items rachana (where applicable) has been applied. Medications: Current Medications Medications (Trade) Dose Ordered Sig/Alo Route PRN Reason Start Time Stop Time Status Last Admin Dose Admin Clonazepam (KlonoPIN) 1 mg QHS PO 07/21/21 21:00 07/21/21 21:47 Justifications for Admission Other Justification VICTORIA EATON III DO Jul 22, 2021 09:49
[2021-07-22] MEDS ORDERED: PANT20TA2 PO (09:51)
[2021-07-22] MEDS ORDERED: AMOX1TAB10 PO (09:52)
--- NOTE | 2021-07-22 09:53 | SNU/HH DC ---
DISCHARGE WITH HOME HEALTH DISCHARGE INFORMATION: Final Diagnosis: Problems Medical Problems: (1) Small bowel obstruction Status: Acute Condition on Discharge: Stable CODE STATUS: Code Status: Full HOME HEALTH: Face to Face: I certify this patient is under my care and that I, or a nurse practitioner or physician's clerical assistant working with me, had a face to face encounter that meets the physician face to face encounter requirements with this patient on []. Medical Complications: Other (Recent UTI and gastroenteritis) Residential For: Assess & Educate Safety RN For Eval/Treatment: Yes Physical Therapy For: Evalulation/Treatment Occupational Therapy For: Evaluation/Treatment Home Health Aide For: Self-care COAL SHOVELER For: Community Resources Pt Meets Homebound Status: Fatigue w/ amb. POST DISCHARGE ORDERS: Activity Instructions for Disc: Activity as tolerated Bathing Instructions: Shower-keep dressing dry, No Tub Bath until see DIET AFTER DISCHARGE: Regular Wound/Incision Care: May get incision wet TREATMENT/EQUIPMENT ORDERS: Adaptive Equipment Issued: Front wheeled walker CERTIFICATION STATEMENT: Certification Statement: Certification Statement: Based on the above finding, I certify that this patient is confined to the home and needs intermittent snf care, physical therapy and/or speech therapy, or continues to need occupational therapy.~ This patient is under my care, and I have initiated the establishment of the plan of care.~ This patient will be followed by myself or a community physician who will periodically review the plan of care. Home Meds Active Scripts Amoxicillin/Potassium Clav (AMOX TR-K CLV 500-125 MG TAB) 1 Each Tablet, 1 TAB PO BID for ., #14 TAB Prov:CASTLE,NIAL K III DO 07/22/21 Pantoprazole Sodium (PROTONIX) 20 Mg Tablet., 1 TAB PO DAILY for ., #30 TAB Prov:CASTLE,NIAL K III DO 07/22/21 Acetaminophen (TYLENOL) 325 Mg Tablet, 2 TAB PO TID PRN for PAIN, #60 TAB Prov:RAN FITCH MD 04/13/20 Reported Medications Diclofenac Sodium (VOLTAREN) 100 Gm Gel..gram., 1 GM TP QID for pain for 30 Days, #1 EACH 0 Refills apply to affected area(s) 04/09/20 Clonazepam (CLONAZEPAM) 1 Mg Tablet, 1 MG PO DAILY, TAB 05/02/17 CASTLE,NIAL K III DO Jul 22, 2021 09:53
--- NOTE | 2021-07-22 10:02 | DS ---
DATE OF DISCHARGE: 07/22/2021 ADMISSION DIAGNOSES: Nausea, vomiting, abdominal pain, small bowel obstruction, urinary tract infection. DISCHARGE DIAGNOSES: Resolving small bowel obstruction, resolving nausea and vomiting, resolving abdominal pain, suspect probable gastroenteritis. Resolving urinary tract infection. History of pessary, anxiety, peptic ulcer disease, cholecystectomy and eye surgery. CONSULTS: GI. PROCEDURES: None. HOSPITAL COURSE: The patient is a pleasant 76-year-old female who presented with nausea, vomiting, abdominal pain, was noted to have a UTI and SBO. We gave her IV fluids, p.r.n. Zofran, IV antibiotics, consulted GI and basically over the past 3 days, she slowly got better. Today, I saw and examined her. She is up, doing well and wants to go home. We will plan to discharge. DISPOSITION: Home. ACTIVITY: As tolerated. DIET: Low sodium. DISCHARGE MEDICATIONS: Please see the [facility]. Augmentin 500 b.i.d., Protonix 40 a day, p.r.n. Tylenol, clonazepam 1 daily and Voltaren gel. Total time [address]: Guerline TID: [id number]
--- NOTE | 2021-07-22 10:26 | PDOC ---
Date of Service: DATE: 07/22/21 TIME: 10:25 Subjective: Subjective: Speaks Palauan but we are able to communicate enough to establish she has no pain, hasn't stooled, and denies n/v. Indicates she wants to go home. Objective: Objective: Called by nurse about discharge - tolerating clears, no c/o pain, no stool. Vital Signs: Vital Signs Date Time Temp Pulse Resp B/P (MAP) Pulse Ox O2 Delivery O2 Flow Rate FiO2 07/22/21 07:00 97.8 62 18 123/96 (105) 98 Room Air 97.8 Imaging: KUB 07/21 IMPRESSION: 1. Improved appearance of the bowels today, nonspecific. Findings may relate to ileus or resolving small bowel obstruction. PE: GEN: NAD LUNGS: CTAB HEART: RRR ABD: quiet BS, S/ND/NT NEURO/PSYCH: A & O 3 A/P: Nausea, diarrhea - resolved -- DC plans noted, okay w/ GI. Justicifation of Admission Dx: Justifications for Admission: Justification of Admission Dx: Yes NEY APODACA Jul 22, 2021 10:26
[2021-07-22] MEDS: cefTRIAXone IV Push 1 GM VIAL. IVP SCH (10:46)
--- NOTE | 2021-07-22 11:15 | NUR ---
Discharge Note: MARCY MARSHALL Discharge instructions and discharge home medications reviewed with Patient and a copy given. All questions have been answered and understanding verbalized. The following instructions and handouts were given: information about follow up appointment, diet, activity. Medication from pharmacy given to patient. Discontinued lines and drains: IV line in left AC removed, catheter tip intact. Patient discharged to home with self care with family member, wheelchair used for mobility to discharge vehicle.
== END 2021-07-22 11:15 | disposition home or self-care (01) | DRG 872 ==
LOC: ER 08:16 → 4 NORTH 11:20
PROVIDERS: ADMIT Internal Medicine; ATTEND Internal Medicine
DX: A41.9 Sepsis, unspecified organism (principal); K40.00 Bilateral inguinal hernia, with obstruction, without gangrene, not specified as recurrent; N39.0 Urinary tract infection, site not specified; A08.4 Viral intestinal infection, unspecified; F41.9 Anxiety disorder, unspecified; K83.8 Other specified diseases of biliary tract; R53.81 Other malaise; Z20.822 Contact with and (suspected) exposure to COVID-19; Z82.49 Family history of ischemic heart disease and other diseases of the circulatory system; Z87.11 Personal history of peptic ulcer disease; Z90.49 Acquired absence of other specified parts of digestive tract; Z98.42 Cataract extraction status, left eye; Z98.41 Cataract extraction status, right eye
CPT/HCPCS: 36415; 74018; 74177; 80048; 80053; 81001; 83605; 83690; 83735; 83880; 84484; 85025; 87086; 87428; 93005; 96361; 96374; 96375; 96376; C9113; J0696; J2270; J2405; J3490; J7030; J7121; Q9967; 97110-GP; 97116-GP; 99285-25; G0378